=== PATIENT | female | born 1965 | race Caucasian/White ===

== ENCOUNTER 2017-09-09 09:24 | Observation (INO) | payer OTHER, SELFPAY ==
[2017-09-09] VITALS (13 sets, daily range): BP systolic 109–142; BP diastolic 61–78; PULSE 74–95; RESP 16–20; TEMP 36.7–36.9; O2SAT 95–97; BMI 27.9; BMI 27.6; BMI 27.7
--- NOTE | 2017-09-09 09:33 | RAD_ITS ---
STUDY: X-RAY CHEST REASON FOR EXAM: Female, 52 years old. Chest pain. TECHNIQUE: Single portable upright frontal chest. COMPARISON: March 26, 2011. FINDINGS: The lungs are clear and expanded. There is no evident pleural effusion or pneumothorax. Normal size heart. Normal mediastinum and montez. Normal visualized pulmonary arteries. There is atherosclerotic calcification of the aortic arch with tortuosity. Normal visualized thoracic spine. Normal visualized ribs, clavicles, and shoulders. There is no demonstrated abnormality of the visualized soft tissue structures of the upper abdomen. RAD/Chest 1 View (Portable) IMPRESSION: No plain film evidence of acute cardiopulmonary disease. Upon further review, calcified chondroid matrix within the proximal shaft of the right humerus appears most compatible with an enchondroma versus sequela of bone infarct. Atherosclerotic peripheral vascular disease. Electronically Signed: Silvestre Canas MD at 10:00 EDT , Service support ,
--- NOTE | 2017-09-09 09:36 | EKG12_ITS ---
Test Reason : CP Blood Pressure : / mmHG Vent. Rate : 083 BPM Atrial Rate : 083 BPM P-R Int : 150 ms QRS Dur : 086 ms QT Int : 366 ms P-R-T Axes : 045 039 066 degrees QTc Int : 430 ms Normal sinus rhythm Nonspecific T wave abnormality Confirmed by KARINA BOOGIE, LEN ([id number]), editor index EARLENE PATEL ([id number]) on 09/12/2017 12:59:19 PM Referred By: AILEEN/VINCENT Confirmed By:LEN COLLINS MD
[2017-09-09 09:50] LABS: Absolute Lymphocyte Count 1.78 X10^3/ul (0.83-4.51); Absolute Neutrophil Count 4.6 X10^3/uL (2.0-7.7); Basophil# 0.03 X10^3/uL; Basophil% 0.4 % (0-1); Eosinophil# 0.12 X10^3/uL; Eosinophils% 1.7 % (0-5); Hematocrit 40.5 % (37-47); Hemoglobin 13.3 g/dl (12.0-15.0); Lymphocyte # 1.78 X10^3/ul (4.0); Lymphocyte % 25.5 % (19-41); Mean Corp Hgb Conc 32.8 g/gl (32-36); Mean Corpuscular Hgb 31.4 pg (27.0-32.0); Mean Corpuscular Volume 95.7 fL (81-99); Mean Platelet Vol. 10.2 fl (6.2-12.0); Monocyte# 0.45 X10^3/uL; Monocyte% 6.5 % (0-10); Neutrophil # 4.59 X10^3/uL (2.7-7.7); Neutrophil % 65.9 % (47-70); Platelet Count 211 K/mm3 (150-450); RBC Distribution Width CV 12.8 % (11.6-14.6); RBC Distribution Width SD 43.8 fl (35.1-43.9); Red Blood Count 4.23 M/mm3 (4.2-5.4)
[2017-09-09 09:52] LABS: POSITIVE COUNT NO; POSITIVE DIFFERENTIAL NO; POSITIVE MORPHOLOGY NO
--- NOTE | 2017-09-09 09:59 | ED.VISSUMM ---
- ER Visit Summary Date of Service: 09/09/17 Chief Complaint: Chest pain History of Present Illness: The patient is a 52 F dense with chest pain. She had intermittent episodes this past weekend which were less than a minute duration and described as sharp left side of the chest. This morning when she awoke she complained of bilateral chest tightness with radiation to left shoulder and shortness of breath. She has no history of PE or DVT or any risk factors. She denies any leg pain, swelling discoloration. Activity does worsen the pain. She is a former smoker. She quit 4 years ago. She started smoking at the age of 19. She also has history of hypertension hypercholesterolemia. There is no family history of coronary disease at a young age. There is no history of food intolerance or biliary disease. She denies heartburn, indigestion, hematemesis, melena hematochezia. Please read written note for complete detail Physical Examination: Patient is a pleasant middle-aged woman. HEENT exam is unremarkable. Heart is regular without murmur, gallop or rub. S1 and S2 are normal. Lungs are clear to auscultation with good movement of air bilaterally. There is no reproducible chest pain. Abdomen is soft and nontender. There is no guarding or peritoneal findings. There is no palpable pulsatile mass. There is no abdominal bruit. Gutierres sign is negative. Negative Rovsing sign. There is no evidence of inguinal or umbilical hernia. There is no asymmetry, swelling, discoloration, leg vein distention, palpable cords or tenderness along the distribution of the deep venous system. Neuro exam is nonfocal. Test Results: EKG that was obtained per nurse protocol reveals a sinus rhythm rate of 83 and is normal. No view portable chest x-ray reveals normal cardiac silhouette and mediastinum. There is no abnormality lung parenchyma. There is no abnormality of the muscle skeletal structures. CBC is normal. BMP is remarkable for slight elevation glucose of 124. Troponin is less than 0.02 with 3 hours of pain. Emergency Department Course and Treatment: Chest tightness is concerning for cardiac disease. This may also represent GI etiology. To evaluate her chest pain CBC, BMP, troponin, EKG and chest x-ray was obtained. She did receive 4 baby aspirin and was treated with nitro since she is describing tightness in her chest that is worse with activity. The discomfort is not worse with movement of extremities or torso or breathing. Treatment Plan: Patient does report improvement after nitroglycerin. The pain is improved markedly. Disposition: 23 observation PCU for serial cardiac enzymes and provocative testing Impression: Chest tightness History of hypertension History of hypercholesterolemia Elevated blood sugar in nondiabetic This note was generated with [employer] dictation software. It may contain incorrect words, spelling, and punctuation that were not noted in review of the chart prior to signing ED Disposition - Plan for ED Patient: Chief Complaint: Chest Pain Referrals: Leah Callejas DO [Primary Care Provider] -
[2017-09-09] MEDS: Aspirin 81 MG TAB.CHEW 324 MG PO (10:01)
[2017-09-09 10:07] LABS: Anion Gap 6 (5-15); BUN 14 mg/dL (7-18); BUN/Creat Ratio 16.6 RATIO (10-20); Calcium,Total 8.9 mg/dL (8.5-10.1); Chloride 105 mmol/L (98-107); Creatinine, Serum 0.84 mg/dL (0.55-1.02); EST Glomerular Filtration Rate 75 mL/min (>60); Est Glom Filt Rate - Afr Amer 91 mL/min (>60); Estimated Creatinine Clearance 66.88 ml/min; Glucose 124 mg/dL (74-106); Potassium 3.6 mmol/L (3.5-5.1); Sodium Level 138 mmol/L (136-145)
--- NOTE | 2017-09-09 11:15 | PCM.HP.STD ---
Problem List (1) Chest pain Status: Acute (2) Essential (primary) hypertension Status: Chronic (3) Environmental allergies Status: Chronic History of Present Illness Date of Admission: 09/09/17 Chief Complaint: Chest pain The patient is a 52 year old F with past medical history significant for essential hypertension as well as allergic rhinitis who presented with chest pain. Patient symptoms started 3 days prior to coming in pain was located in the retrosternal region described as intermittent in nature. On the morning of her admission she came to work pain became more intense this time squeezing radiating to both shoulders and down her left arm. Patient did not relieve the pain to any activity. She did not also noticed any changes with changes in posture. Presented to the emergency department initial set of cardiac enzymes and EKG came back unremarkable in view of her presentation decision was made to admit patient for subsequent evaluation in the hospital. Past Medical History Past Medical History (Chronic Problems): Chronic Problems (Last Updated 08/25/17 @ 11:34 by Dafne Anne) Essential (primary) hypertension (Chronic) Environmental allergies (Chronic) Allergies Sulfa (Sulfonamide Antibiotics) Allergy (Verified 08/25/17 11:30) Unknown Home Medications: Ambulatory Orders Medication Instructions Recorded Cetirizine HCl [Zyrtec] 10 mg PO DAILY 06/25/16 citalopram 10 mg tablet 10 mg PO QHS 08/25/17 cyclobenzaprine 5 mg tablet 5 mg PO Q8H PRN PRN 08/25/17 DiphenhydrAMINE [Benadryl] 50 mg PO QHS PRN PRN 09/09/17 Lisinopril [Zestril] 20 mg PO DAILY 09/09/17 Tumaric 1 tab PO DAILY 09/09/17 traMADol [Ultram (G)] 50 mg PO Q6H PRN PRN 09/09/17 Smoking Status: Former smoker - *Family History Paternal History Items: Heart Disease - of massive heart attack at age 71 Review of Systems Constitutional: Denies: Anorexia, Chills, Fever, Night Sweats, Weight Change HEENT: Denies: Head Aches, Sinus Congestion, Sinus Drainage Cardiovascular: Reports: Chest Pain. Denies: Orthopnea, Palpitations, Paroxysmal Noc. Dyspnea Respiratory: Denies: Cough, Shortness of breath at rest, Shortness of breath upon exertion, Sputum production Gastrointestinal: Denies: Abdominal Pain, Hematemesis, Hematochezia, Nausea, Melena, Vomiting Genitourinary: Denies: Dysuria, Frequency, Hematuria, Urgency Musculoskeletal: Denies: Joint Pain, Joint Tenderness Skin: Denies: Rash Neurological: Denies: Focal weakness, Numbness, Tingling Psychiatric: Denies: Homicidal Ideations, Suicidal Ideations Hematologic/ Lymphatic: Denies: Easy Bruising, Easy Bleeding VTE Information - Inpt Only VTE Present on Admission: No VTE Mechan Device Prophylaxis: Knee High DERRICK Hose VTE Pharm Prophylaxis ordered?: Yes Patient Problems: Active and Suspected Problems (Last Updated 08/25/17 @ 11:34 by Dafne Anne) Chest pain (Acute) Objective: GENERAL: cooperative HEENT: Clear conjunctiva, NECK; supple, normal thyroid, CHEST: Clear to auscultation bilaterally, HEART: Regular S1 S2, no audible murmurs ABDOMEN: soft, non-tender, normoactive bowel sounds, RECTAL: deferred EXTREMITIES: No edema, no clubbing, no cyanosis. 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 SKIN: No lesions no erythema, - Physical Exam Vital Signs Temp Pulse Resp BP Pulse Ox 98.1 F 81 20 H 121/68 H 97 09/09/17 09:25 09/09/17 10:41 09/09/17 10:41 09/09/17 10:41 09/09/17 10:41 Oxygen Delivery Method Room Air Weight: 73.1 kg Body Mass Index (BMI) 27.6 Laboratory Tests Past 24 Hrs 09/09/17 09/09/17 09:32 09:32 WBC 7.0 RBC 4.23 Hgb 13.3 Hct 40.5 MCV 95.7 MCH 31.4 MCHC 32.8 RDW 12.8 RDW Differential 43.8 Plt Count 211 MPV 10.2 Immature Gran % (Auto) 0.000 Neut % (Auto) 65.9 Lymph % (Auto) 25.5 [place] % (Auto) 6.5 Eos % (Auto) 1.7 Baso % (Auto) 0.4 Absolute Neuts (auto) 4.6 Absolute Lymphs (auto) 1.78 Total Counted Not Reportable Sodium 138 Potassium 3.6 Chloride 105 Carbon Dioxide 27.0 Anion Gap 6 BUN 14 Creatinine 0.84 Estim Creat Clear Calc 66.88 Est GFR (MDRD) Af Amer 91 Est GFR (MDRD) Non-Af 75 BUN/Creatinine Ratio 16.6 Glucose 124 H Calcium 8.9 Troponin I < 0.02 Assessment/Plan Active and Suspected Problems (Last Updated 08/25/17 @ 11:34 by Dafne Anne) Chest pain (Acute) Patient is a 52-year-old lady with past medical history sent on 4 previous tobacco use, essential hypertension presented with chest pain 1. Chest pain: Patient has been admitted to monitored bed ordered serial cardiac enzymes to rule out RI. Patient undergo a nuclear stress test if RI is ruled out in a.m. 2. Hypertension-blood pressure controlled, home medications continued with dose adjustment as needed 3. Seasonal allergies 4. Use of SSRI to treat postmenopausal symptoms 5. DVT prophylaxis SC Lovenox Code Visit OBSV E&M: 86058 Initial observation care L3
--- NOTE | 2017-09-09 11:38 | ECHOD_ITS ---
Reason For Study: CHEST PAIN Procedure This was a 2D Doppler, Color Flow transthoracic echocardiogram. The exam was of adequate technical quality. Exam performed in department. Left Ventricle Normal LV size. Sigmoid septum. Left ventricular systolic function is normal. The estimated ejection fraction is 65 %. Transmitral doppler flow suggestive of impaired relaxation of left ventricle. No regional wall motion abnormalities noted. Right Ventricle Normal RV size. Normal systolic function. Atria Normal left atrium. Normal right atrium. Agitated saline contrast study considered faintly positive for a right to left interatrial shunt c/w a small PFO vs. ASD. Mitral Valve There is no mitral annular calcification. Normal mitral valve. Trivial mitral valve insufficiency. Tricuspid Valve Normal tricuspid valve. Mild tricuspid valve insufficiency. Right ventricular systolic pressure estimated to be 25 mmHg. Aortic Valve Trisinus/trileaflet aortic valve. Normal aortic valve. Pulmonic Valve The pulmonic valve is not well visualized. Great Vessels Normal sized aortic root. Pericardium/Pleural No pericardial effusion. Medication Performed a rapid injection of agitated mix of 9 cc saline and 1cc air to assess for atrial septal defect. MMode/2D Measurements & Calculations LVIDd: 4.1 cm IVSd: 0.73 cm Ao root diam: 3.1 cm LVIDs: 2.7 cm LVPWd: 0.91 cm RVDd: 3.0 cm FS: 34.8 % LAV(MOD-bp): 29.1 ml EDV(MOD-sp4): 73.8 ml EDV(MOD-sp2): 95.0 ml LAV(MOD-bp) Indexed: 16.3 ml/m2 ESV(MOD-sp4): 30.6 ml EF(MOD-sp2): 68.8 % LAV(MOD-sp2): 33.8 ml EF(MOD-sp4): 58.6 % LAV(MOD-sp4): 22.5 ml SV(MOD-sp4): 43.3 ml SV(MOD-sp2): 65.4 ml LA A4 area: 11.1 cm2 RA A4 area: 8.8 cm2 Doppler Measurements & Calculations MV E max boby: 58.6 cm/sec Lat Peak E' Boby: 9.9 cm/sec Med Peak E' Boby: 9.3 cm/sec MV A max boby: 72.6 cm/sec E/E' lat: 5.9 E/E' med: 6.3 MV E/A: 0.81 Ao V2 max: 163.5 cm/sec LV V1 max: 119.8 cm/sec TR max boby: 233.2 cm/sec Ao max P.7 mmHg LV V1 max P.7 mmHg TR max P.8 mmHg Interpretation Summary Left ventricular systolic function is normal. The estimated ejection fraction is 65 %. Sigmoid septum. Trivial mitral valve insufficiency. Mild tricuspid valve insufficiency. Right ventricular systolic pressure estimated to be 25 mmHg. Transmitral doppler flow suggestive of impaired relaxation of left ventricle Agitated saline contrast study considered faintly positive for a right to left interatrial shunt c/w a small PFO vs. ASD. Ordering Physician: Nabeel Dai Referring Physician: Leah Callejas Performed By: Kimberley Brannon, JONAS, RVT
[2017-09-09 12:00] LABS: Magnesium 1.8 mg/dL (1.6-2.6)
[2017-09-09] MEDS: Citalopram 10 MG Tablet PO (21:25)
[2017-09-09] MEDS: Zolpidem Tartrate 5 MG Tablet PO (21:26)
[2017-09-10 00:49] LABS: Prothrombin Time (Protime)PT. 12.8 SECONDS (11.7-14.9)
[2017-09-10 03:20] VITALS: BP 119/67; PULSE 72; RESP 16; TEMP 36.6; O2SAT 97
[2017-09-10 03:29] VITALS: PULSE 62
[2017-09-10 05:41] LABS: Absolute Neutrophil Count 3.2 X10^3/uL (2.0-7.7); Basophil# 0.03 X10^3/uL; Basophil% 0.5 % (0-1); Eosinophil# 0.16 X10^3/uL; Eosinophils% 2.7 % (0-5); Lymphocyte % 31.8 % (19-41); Mean Corp Hgb Conc 33.3 g/gl (32-36); Mean Corpuscular Hgb 32.1 pg (27.0-32.0); Mean Corpuscular Volume 96.3 fL (81-99); Mean Platelet Vol. 10.2 fl (6.2-12.0); Monocyte# 0.64 X10^3/uL; Monocyte% 10.7 % (0-10); Neutrophil # 3.23 X10^3/uL (2.7-7.7); Neutrophil % 54.1 % (47-70); Platelet Count 209 K/mm3 (150-450); RBC Distribution Width CV 12.7 % (11.6-14.6); RBC Distribution Width SD 43.8 fl (35.1-43.9); Red Blood Count 4.05 M/mm3 (4.2-5.4)
[2017-09-10 05:44] LABS: POSITIVE COUNT NO; POSITIVE DIFFERENTIAL NO; POSITIVE MORPHOLOGY NO
[2017-09-10 05:55] LABS: Anion Gap 7 (5-15); BUN 12 mg/dL (7-18); BUN/Creat Ratio 17.5 RATIO (10-20); Calcium,Total 8.2 mg/dL (8.5-10.1); Chloride 110 mmol/L (98-107); Creatinine, Serum 0.68 mg/dL (0.55-1.02); EST Glomerular Filtration Rate 95 mL/min (>60); Est Glom Filt Rate - Afr Amer 115 mL/min (>60); Estimated Creatinine Clearance 82.62 ml/min; Glucose 92 mg/dL (74-106); Partial Thromboplast Time 25.8 Seconds (24.1-36.2); Sodium Level 144 mmol/L (136-145)
--- NOTE | 2017-09-10 05:55 | EKG12_ITS ---
Test Reason : AM EKG Blood Pressure : / mmHG Vent. Rate : 061 BPM Atrial Rate : 061 BPM P-R Int : 162 ms QRS Dur : 086 ms QT Int : 396 ms P-R-T Axes : 052 038 069 degrees QTc Int : 398 ms Normal sinus rhythm Normal ECG Confirmed by KARINA BOOGIE, LEN ([id number]), legal editor EARLENE PATEL ([id number]) on 09/12/2017 1:23:19 PM Referred By: Confirmed By:LEN COLLINS MD
[2017-09-10] MEDS: Lisinopril 20 MG Tablet PO (06:15)
[2017-09-10 06:16] VITALS: BP 156/76; PULSE 75; RESP 20; TEMP 36.4; O2SAT 98
[2017-09-10 09:29] VITALS: PULSE 82
[2017-09-10] MEDS: Loratadine 10 MG Tablet PO (09:30)
[2017-09-10 09:37] VITALS: BP 121/81; PULSE 75; RESP 16; TEMP 36.5; O2SAT 100
--- NOTE | 2017-09-10 10:18 | STRESSREP ---
Stress Test Report Date: 09/10/2017 Procedure: Exercise tolerance test/imaging study Indications: Chest pain Consent: Per the patient Procedure: The patient exercised on a Brandt protocol for 7 minutes completing Stage 2 and 1 minute of Stage III achieving a peak heart rate of 169 bpm (101 % predicted maximal heart rate) with a peak blood pressure 178/62 mmHg and a peak MET capacity of 8 METs. The baseline ECG demonstrated normal sinus rhythm. The peak exercise ECG demonstrated somatic/motion artifact with no obvious ECG changes. There was a rare PVC during exercise and recovery. The functional capacity was considered good. There was chest tightness at peak exercise with spontaneous resolution during recovery. The examination was discontinued secondary to dyspnea and leg discomfort. Impression: 1. Technically adequate (percent predicted maximal heart rate greater than 85%) exercise tolerance test 2. Peak exercise ECG with somatic/motion artifact with no obvious ECG changes 3. There was a rare PVC during exercise and recovery. 4. Nuclear images pending Myocardial perfusion imaging study: Technique: The patient was injected with 11.8 mCi of technetium 99m Cardiolite and subsequently rest SPECT Cardiolite nuclear imaging was obtained in the horizontal long, vertical long, and short axis views. The patient exercised on a Brandt protocol for 7 minutes completing Stage 2 and 1 minute of Stage III achieving a peak heart rate of 169 bpm (101 % predicted maximal heart rate) with a peak blood pressure 178/62 mmHg and a peak MET capacity of 8 METs. The patient was injected with 33.1 mCi of technetium 99m Cardiolite and subsequently stress SPECT Cardiolite nuclear imaging was obtained in the horizontal long, vertical long, and short axis views. A gated Cardiolite study at peak stress was obtained. Interpretation: Rest and stress SPECT Cardiolite nuclear imaging status post realignment, normalization, and attenuation correction, demonstrates the appearance of relative uniform tracer uptake and myocardial perfusion appearing within normal limits. There is end systolic thickening and brightening. The gated Cardiolite study demonstrates myocardial thickening and inward wall motion. The reported LVEF is 78 %. Impression: 1. Rest and stress SPECT Cardiolite nuclear imaging demonstrate relative uniform tracer uptake and myocardial perfusion appearing within normal limits. 2. The gated Cardiolite study reports an LVEF of 78 %. This note was generated with [employer] software. It may contain incorrect words, spelling, and punctuation that were not noted in checking the note before signing.
--- NOTE | 2017-09-10 10:21 | NURSING ---
this RN assuming care of pt at this time
--- NOTE | 2017-09-10 10:22 | STRESSREP_ITS ---
Stress Test Report Date: 09/10/2017 Procedure: Exercise tolerance test/imaging study Indications: Chest pain Consent: Per the patient Procedure: The patient exercised on a Brandt protocol for 7 minutes completing Stage 2 and 1 minute of Stage III achieving a peak heart rate of 169 bpm (101 % predicted maximal heart rate) with a peak blood pressure 178/62 mmHg and a peak MET capacity of 8 METs. The baseline ECG demonstrated normal sinus rhythm. The peak exercise ECG demonstrated somatic/motion artifact with no obvious ECG changes. There was a rare PVC during exercise and recovery. The functional capacity was considered good. There was chest tightness at peak exercise with spontaneous resolution during recovery. The examination was discontinued secondary to dyspnea and leg discomfort. Impression: 1. Technically adequate (percent predicted maximal heart rate greater than 85% ) exercise tolerance test 2. Peak exercise ECG with somatic/motion artifact with no obvious ECG changes 3. There was a rare PVC during exercise and recovery. 4. Nuclear images pending Myocardial perfusion imaging study: Technique: The patient was injected with 11.8 mCi of technetium 99m Cardiolite and subsequently rest SPECT Cardiolite nuclear imaging was obtained in the horizontal long, vertical long, and short axis views. The patient exercised on a Brandt protocol for 7 minutes completing Stage 2 and 1 minute of Stage III achieving a peak heart rate of 169 bpm (101 % predicted maximal heart rate) with a peak blood pressure 178/62 mmHg and a peak MET capacity of 8 METs. The patient was injected with 33.1 mCi of technetium 99m Cardiolite and subsequently stress SPECT Cardiolite nuclear imaging was obtained in the horizontal long, vertical long, and short axis views. A gated Cardiolite study at peak stress was obtained. Interpretation: Rest and stress SPECT Cardiolite nuclear imaging status post realignment, normalization, and attenuation correction, demonstrates the appearance of relative uniform tracer uptake and myocardial perfusion appearing within normal limits. There is end systolic thickening and brightening. The gated Cardiolite study demonstrates myocardial thickening and inward wall motion. The reported LVEF is 78 %. Impression: 1. Rest and stress SPECT Cardiolite nuclear imaging demonstrate relative uniform tracer uptake and myocardial perfusion appearing within normal limits. 2. The gated Cardiolite study reports an LVEF of 78 %. This note was generated with [employer] software. It may contain incorrect words, spelling, and punctuation that were not noted in checking the note before signing.
--- NOTE | 2017-09-10 11:29 | PCM.DC ---
- Discharge Diagnoses Current Active Problems: Current Active and Chronic Problems (Last Updated 08/25/17 @ 11:34 by Dafne Anne) Chest pain (Acute) Essential (primary) hypertension (Chronic) Environmental allergies (Chronic) You will use the following diet at home:: No restrictions Instructions: ED Chest Pain NonCardiac Allergies/Adverse Reactions: Allergies Sulfa (Sulfonamide Antibiotics) Allergy (Verified 08/25/17 11:30) Unknown Medications to take at Discharge Cetirizine HCl [Zyrtec] 10 mg PO DAILY 06/25/16 citalopram 10 mg tablet 10 mg PO QHS 08/25/17 cyclobenzaprine 5 mg tablet 5 mg PO Q8H PRN PRN 08/25/17 DiphenhydrAMINE [Benadryl] 50 mg PO QHS PRN PRN 09/09/17 Lisinopril [Zestril] 20 mg PO DAILY 09/09/17 Tumaric 1 tab PO DAILY 09/09/17 traMADol [Ultram] 50 mg PO Q6H PRN PRN 09/09/17 Primary Care Physician: Leah Callejas DO [Primary Care Provider] - Please follow up with your Primary Care Physician in: IN 3-5 DAYS Proposed Discharge Date: 09/10/17
--- NOTE | 2017-09-10 11:32 | PCM.DC.SUM ---
Discharge Date and Diagnosis - Problem List Patient Problems: Active and Suspected Problems (Last Updated 08/25/17 @ 11:34 by Dafne Anne) Chest pain (Acute) Date of Admission: 09/09/17 Date of Discharge: 09/10/17 - Primary Discharge Diagnosis Active and Suspected Problems (Last Updated 08/25/17 @ 11:34 by Dafne Anne) Chest pain (Acute) - Secondary Discharge Diagnosis Chronic Problems (Last Updated 08/25/17 @ 11:34 by Dafne Anne) Essential (primary) hypertension (Chronic) Environmental allergies (Chronic) Hospital Course and Treatment Imaging Results: 09/10/17 05:55 Nuclear Stress Test - Treadmil [NM] AM (NON MEDS) Summary of Care Provided: Patient is a 52-year-old lady with past medical history sent on 4 previous tobacco use, essential hypertension presented with chest pain 1. Chest pain: Is admitted to regular nursing floor did rule out HI with serial cardiac enzymes subsequently underwent a nuclear stress test which was negative for stress-induced ischemia. Patient was discharged home instructed to follow-up with PCP for further 2. Hypertension-blood pressure controlled, home medications continued with dose adjustment as needed 3. Seasonal allergies 4. Use of SSRI to treat postmenopausal symptoms 5. DVT prophylaxis SC Lovenox Discharge Diet: No Restrictions Discharge Activity: Return to Normal Activity Home Medications: Medications to take at Discharge Cetirizine HCl [Zyrtec] 10 mg PO DAILY 06/25/16 citalopram 10 mg tablet 10 mg PO QHS 08/25/17 cyclobenzaprine 5 mg tablet 5 mg PO Q8H PRN PRN 08/25/17 DiphenhydrAMINE [Benadryl] 50 mg PO QHS PRN PRN 09/09/17 Lisinopril [Zestril] 20 mg PO DAILY 09/09/17 Tumaric 1 tab PO DAILY 09/09/17 traMADol [Ultram] 50 mg PO Q6H PRN PRN 09/09/17 Primary Care Physician: Leah Callejas DO [Primary Care Provider] - Please follow up with your Primary Care Physician in: IN 3-5 DAYS Patient Instructions: ED Chest Pain NonCardiac Disposition: Home Minutes spent on discharge:: 25 Patient Condition:: Stable Medical Necessity - Tobacco Use Smoking Status: Former smoker Meaningful Use Info Meaningful Use Diagnoses (Choose all that apply): None applicable Code Visit OBSV E&M: 24444 Observation care discharge
[2017-09-10 14:09] VITALS: BP 124/76; PULSE 78; RESP 14; TEMP 36.6; O2SAT 100
== END 2017-09-10 11:30 | disposition home or self-care (01) ==
LOC: ED 10:15 → PCU 10:44
PROVIDERS: Admitting Provider Internal Medicine; Emergency Provider Emergency Medicine; Family Provider Family Medicine; PCP Family Medicine; Visit Provider Internal Medicine
DX: R07.89 Other chest pain (principal); R06.02 Shortness of breath; Z87.891 Personal history of nicotine dependence; I10 Essential (primary) hypertension; E78.00 Pure hypercholesterolemia, unspecified; R73.9 Hyperglycemia, unspecified; Z79.899 Other long term (current) drug therapy; N95.9 Unspecified menopausal and perimenopausal disorder
CPT/HCPCS: 36415; 71045; 78452; 80048; 83735; 84484; 85025; 85610; 85730; 93005; 93017; 93306; 99218; 99285; A9500; A4216; G0378

== ENCOUNTER → 2017-10-04 13:30 | Outpatient (CLI) | payer OTHER, SELFPAY | PROVIDERS: Family Provider Family Medicine; PCP Family Medicine; Visit Provider Family Medicine | DX: R19.7 Diarrhea, unspecified (principal) | CPT/HCPCS: 83630; 87177; 87209; 87493; 87506 ==

== ENCOUNTER → 2017-12-26 13:57 | Outpatient (CLI) | payer OTHER, SELFPAY ==
--- NOTE | 2017-12-26 14:11 | RAD_ITS ---
STUDY: X-RAY - LEFT KNEE REASON FOR EXAM: Female, 52 years old. Pain. Recent fall. TECHNIQUE: 4 view(s) of the knee. COMPARISON: None. FINDINGS: Normal visualized distal femur. Normal visualized proximal tibia and fibula. Normal proximal tibiofibular articulation. There is mild degenerative arthrosis of the medial femorotibial compartment. There is mild degenerative arthrosis of the lateral femorotibial compartment. There is chondrocalcinosis. There is partial joint replacement of the patellofemoral articulation. There is a soft tissue prominence in the suprapatellar region suggesting a small volume joint effusion. The soft tissue structures are unremarkable. RAD/Knee 4 or More Views IMPRESSION: Degenerative arthrosis. Electronically Signed: Nadir Monte MD at 22:05 EDT , Service support ,
== END ==
PROVIDERS: Family Provider Family Medicine; PCP Family Medicine; Visit Provider Physician Assistant
DX: M17.12 Unilateral primary osteoarthritis, left knee (principal)
CPT/HCPCS: 73564

== ENCOUNTER → 2018-02-10 15:53 | Outpatient (CLI) | payer OTHER, SELFPAY ==
--- NOTE | 2018-02-10 16:00 | RAD_ITS ---
STUDY: X-RAY - LEFT KNEE REASON FOR EXAM: Female, 52 years old. Pain TECHNIQUE: Two view(s) of the knee were obtained. COMPARISON: December 26, 2017 FINDINGS: There are small osteophytes on the distal femur. There are small osteophytes on the tibial plateau. There is mild narrowing of the medial femorotibial compartment. There is mild narrowing of the lateral femorotibial compartment. There is chondrocalcinosis in both femorotibial compartments. There are surgical changes in the patella. There is minimal fullness above the patella. The soft tissue structures are unremarkable. RAD/Knee 1 or 2 Views IMPRESSION: There are stable degenerative changes in the left knee. There is a small joint effusion. Electronically Signed: Demetria Byrnes MD at 17:54 EDT Tel Direct: [phone], Service support ,
== END ==
PROVIDERS: Family Provider Family Medicine; PCP Family Medicine; Visit Provider Physician Assistant
DX: M17.12 Unilateral primary osteoarthritis, left knee (principal)
CPT/HCPCS: 73560

== ENCOUNTER → 2018-03-12 10:21 | Outpatient (CLI) | payer OTHER, SELFPAY ==
--- NOTE | 2018-03-12 10:22 | BI_ITS ---
MAMMOGRAPHY - BILATERAL SCREENING REASON FOR EXAM: Female, 52 years old. Routine annual screening examination. PERTINENT HISTORY: Grandmother with breast cancer. TECHNIQUE: Digital bilateral breast megan (3D mammographic acquisition) in the CC and MLO projections. 2-D mediolateral oblique (MLO) and craniocaudad (CC) views of both breasts were obtained. CAD: Full Field Digital Mammography with Computer Added Detection was performed. COMPARISON: Comparison is made with prior study dated March 26, 2016 and February 08, 2015. FINDINGS: Breast Composition: There are scattered areas of fibroglandular density. There are no dominant masses or suspicious calcifications. I suspect a 4.8 mm x 6.6 mm well-defined nodule in the superior lateral retroareolar region of the left breast. Correlation with ultrasound is recommended. No other significant abnormalities are identified. BI/SCREENING MAMM (CAD), BILAT IMPRESSION: I suspect a 4.8 mm x 6.6 mm well-defined nodule in the superior lateral retroareolar region of the left breast as described. Correlation with ultrasound is recommended. ASSESSMENT CATEGORY: BIRADS Category 0: Incomplete. Need additional imaging evaluation. A letter regarding these results will be sent to the patient by the facility within 30 days. Approximately 10% of breast cancers are not detected by mammography. A normal mammogram should not delay biopsy of a clinically suspicious abnormality. [id number] Electronically Signed: Yuri Rodrigues MD at 11:43 EDT Tel [phone], Service support ,
== END ==
PROVIDERS: Family Provider Family Medicine; PCP Family Medicine; Referring Provider Family Medicine; Visit Provider Family Medicine
DX: Z12.31 Encounter for screening mammogram for malignant neoplasm of breast (principal)
CPT/HCPCS: 77063; 77067

== ENCOUNTER → 2018-03-14 11:00 | Outpatient (CLI) | payer OTHER, SELFPAY ==
--- NOTE | 2018-03-14 11:02 | US_ITS ---
STUDY: ULTRASOUND BREAST - LEFT REASON FOR EXAM: Female, 52 years old. Abnormal screening mammogram. TECHNIQUE: Axial and longitudinal images of the LEFT breast were performed with a high resolution ultrasound transducer. COMPARISON: Comparison is made with prior mammogram dated March 12, 2018. FINDINGS: LEFT Breast: There is a 5 mm x 9 mm x 5 mm hypoechoic nodule with a small cystic changes within it in the lateral retroareolar region of the left breast. This corresponds to the mammographic findings. A biopsy is recommended for further evaluation. US/Breast Limited Unilateral IMPRESSION: 5 mm x 9 mm x 5 mm complex nodule seen in the retroareolar region of the left breast as described. A biopsy is recommended for further evaluation. ASSESSMENT CATEGORY: BIRADS Category 4: Suspicious - Biopsy Should Be Considered. A letter regarding these results will be sent to the patient by the facility within 30 days. Electronically Signed: Yuri Rodrigues MD at 12:39 EDT Tel [phone], Service support ,
== END ==
PROVIDERS: Family Provider Family Medicine; PCP Family Medicine; Referring Provider Family Medicine; Visit Provider Family Medicine
DX: R92.8 Other abnormal and inconclusive findings on diagnostic imaging of breast (principal)
CPT/HCPCS: 76642

== ENCOUNTER 2018-03-21 09:00 | Outpatient (RCR) | payer OTHER, SELFPAY ==
--- NOTE | 2017-08-05 16:11 | MASS.EVAL_ITS ---
Massage Therapy Evaluation: Initial Evaluation Date: 08/05/2017 SUBJECTIVE: Susanne is a 52 year old female who was referred to the [facility] facility for a massotherapy evaluation by Dr. Leah Callejas with the diagnosis of sciatica and headaches. Susanne presents today with the symptoms of right low back pain and right sciatic pain. She also complains of tension and pain in her neck shoulders and middle back. She reports having a medical history of sciatica that shifts from right side to left intermittently and tension headaches. She reports having minimal limitations during her daily activities currently. OBJECTIVE: Upon observation Susanne has poor posture with her head forward and shoulders forward from the neutral position in sitting and standing. After examination and palpation I found Susanne to have very high muscle tension with tenderness and myofascial restrictions in her sub occipitals, trapezius, rhomboids, scalenes and thoracic paraspinals. Her hips and lumbar region were also tight with tender points on the right side greater than the left side currently. The first treatment consisted of a one hour massage to her full body with myofascial release, muscle stripping, trigger point compression techniques, and cervical manual traction. ASSESSMENT: I feel that Susanne is a good candidate for massotherapy at this time. She had a favorable response to the first treatment with reduction in her muscle aches, pain and tension. She also had improvement in her lumbar and hip flexibility. PLAN: The plan of care was reviewed with the patient. The patient is to be seen on as needed basis for a total of ten sessions with the recommendation of once every four weeks for a one hour treatment.
--- NOTE | 2018-05-10 15:06 | MASS.DISCH ---
Massage Therapy Discharge Summary: Discharge Date: 05/10/2018 Susanne was seen for a massotherapy evaluation on 08/05/2017 with the diagnosis of headaches and sciatica. She was treated with five sessions of massage therapy consisting of deep pressure soft tissue techniques, myofascial release and trigger point compression to her cervical, thoracic, lower back, upper extremities and hips. Susanne responded well to the therapy by reporting decreased tension and pain throughout her head, neck, shoulders, lower back and hips. Her goals for therapy were met throughout the treatment sessions. At this time this patient is being discharged from our care at [facility] facility.
== END 2018-03-21 19:00 | disposition home or self-care (01) ==
LOC: MASS 09:00
PROVIDERS: Family Provider Family Medicine; PCP Family Medicine; Visit Provider Family Medicine
DX: M54.30 Sciatica, unspecified side (principal)
CPT/HCPCS: 97124

== ENCOUNTER → 2018-03-26 09:00 | Outpatient (CLI) | payer OTHER, SELFPAY ==
--- NOTE | 2018-03-26 09:00 | BRBX_PTH ---
PATIENT: JIMMIE ALY LOC: [facility] U#:[id number] AGE/SX: 59/F ROOM: RE03/26/[address]: Dr. Luke Pacheco MD : 1965 BED: DIS: SPEC #: [id number] RECD: 03/26/18 10:27 STATUS: BEVERLY FRED #: [id number] PAGE: 03/26/18 09:[address]: Luke Pacheco DEPT: SURGICAL PATHOLOGY RECD BY: Rocco Cho ENTERED: 03/26/18 12:04 SP TYPE: BREAST BX OTHR DR: Dr. Leah Callejas DO Tissues: Left breast, NOS Procedures: Surgery Specimen Level IV HEADER OPERATION: Ultrasound-guided needle core biopsy left breast PRE-OP DIAGNOSIS: Abnormal mammogram R92.8 TISSUE SUBMITTED: Needle core biopsy left breast ISCHEMIC TIME: <30 seconds FIXATION TIME: 10.5 hours MICROSCOPIC DIAGNOSIS Left breast, ultrasound-guided needle core biopsy: Fibrocystic change. No evidence of malignancy. AM:soniya 03/27/18 MICROSCOPIC DESCRIPTION Slides are reviewed. GROSS DESCRIPTION Received in fixative is one container labeled with the patient's name and designated left breast biopsy. The specimen consists of multiple elongated fragments of banks-yellow fibroadipose tissue that in aggregate measure 1.5 x 0.3 x 0.1 cm. The entire specimen is submitted in one cassette. / SJ:soniya 03/26/18 TC:5 CPT: 41427
== END ==
PROVIDERS: Family Provider Family Medicine; PCP Family Medicine; Referring Provider Surgery; Visit Provider Surgery
DX: R92.8 Other abnormal and inconclusive findings on diagnostic imaging of breast (principal)
CPT/HCPCS: 88305

== ENCOUNTER → 2019-01-23 14:49 | Outpatient (CLI) | payer OTHER, SELFPAY ==
[2019-01-15 14:14] VITALS: BMI 29.2
--- NOTE | 2019-01-23 14:55 | RAD_ITS ---
STUDY: X-RAY - LEFT KNEE REASON FOR EXAM: Female, 53 years old. Osteoarthritis. Pain. TECHNIQUE: 4 view(s) of the knee. COMPARISON: 02/10/2018 radiographs. FINDINGS: No visible fracture. No osseous destruction. Status post partial arthroplasty of the patellofemoral compartment. Alignment anatomic. Mild degenerative changes. Chondrocalcinosis of the medial and lateral menisci. Soft tissues unremarkable. Calcific atherosclerosis. RAD/Knee 4 or More Views IMPRESSION: No acute osseous abnormality. Mild degenerative changes with meniscal chondrocalcinosis. Electronically Signed: Cb Mason, at 0:45 EDT Tel , Service support ,
== END ==
PROVIDERS: Family Provider Family Medicine; PCP Family Medicine; Referring Provider Physician Assistant; Visit Provider Physician Assistant
DX: M17.12 Unilateral primary osteoarthritis, left knee (principal)
CPT/HCPCS: 73564

== ENCOUNTER → 2019-05-06 12:38 | Outpatient (CLI) | payer OTHER, SELFPAY ==
[2019-01-15 14:14] VITALS: BMI 29.2
--- NOTE | 2019-05-06 12:42 | BI_ITS ---
MAMMOGRAPHY - BILATERAL SCREENING REASON FOR EXAM: Female, 53 years old. Routine annual screening examination. PERTINENT HISTORY: Grandmother with breast cancer. Prior left ultrasound-guided breast biopsy. TECHNIQUE: Digital bilateral breast jasvir (3D mammographic acquisition) in the CC and MLO projections. 2-D mediolateral oblique (MLO) and craniocaudad (CC) views of both breasts were obtained. CAD: Full Field Digital Mammography with Computer Added Detection was performed. COMPARISON: Comparison is made with prior study dated March 12, 2018 and March 26, 2016. FINDINGS: Breast Composition: There are scattered areas of fibroglandular density. There are no dominant masses or suspicious calcifications. A tissue clip marker is seen in the tiny nodular density in the superior slightly lateral retroareolar region of the left breast. The nodular density has decreased in size. No other significant abnormalities are identified. BI/SCREEN MAMM (CAD) W/JASVIR BILAT IMPRESSION: Stable bilateral screening mammogram. Yearly follow-up mammogram recommended. (A) ASSESSMENT CATEGORY: BIRADS Category 2: Benign. A letter regarding these results will be sent to the patient by the facility within 30 days. Approximately 10% of breast cancers are not detected by mammography. A normal mammogram should not delay biopsy of a clinically suspicious abnormality. [id number] Electronically Signed: Yuri Rodrigues, at 15:04 EST , Service support ,
== END ==
PROVIDERS: Family Provider Family Medicine; PCP Family Medicine; Referring Provider Family Medicine; Visit Provider Family Medicine
DX: Z12.31 Encounter for screening mammogram for malignant neoplasm of breast (principal)
CPT/HCPCS: 77063; 77067

== ENCOUNTER → 2019-06-23 10:10 | Outpatient (CLI) | payer OTHER, SELFPAY ==
[2019-01-15 14:14] VITALS: BMI 29.2
--- NOTE | 2019-06-23 10:15 | RAD_ITS ---
STUDY: X-RAY - RIGHT SHOULDER REASON FOR EXAM: Female, 54 years old. pain, no current injury, pt. states she played softball for many years TECHNIQUE: 4 view(s) of the shoulder. COMPARISON: Chest x-ray dated 2010. FINDINGS: No acute fracture, dislocation or osseous destruction. Mild glenohumeral joint arthrosis. Moderate acromial clavicular joint arthrosis. Rotator cuff calcific peritendinitis. Normal right lung. Right proximal humeral stable chondroid lesion. RAD/Shoulder min 2 Views IMPRESSION: Right shoulder osteoarthritis Rotator cuff calcific peritendinitis Right proximal humeral chondroid lesion (enchondroma) Electronically Signed: Dc Arciniega DO at 15:07 EST Tel , Service support ,
== END ==
PROVIDERS: PCP Family Medicine; Referring Provider Orthopaedic Surgery; Visit Provider Orthopaedic Surgery
DX: M65.811 Other synovitis and tenosynovitis, right shoulder (principal)
CPT/HCPCS: 73030

== ENCOUNTER 2019-07-07 17:04 | Outpatient (RCR) | payer OTHER, SELFPAY ==
[2019-01-15 14:14] VITALS: BMI 29.2
--- NOTE | 2019-07-09 12:38 | MASS.EVAL_ITS ---
Massage Therapy Evaluation: Initial Evaluation Date: 07/07/2019 SUBJECTIVE: Susanne is a 54 year old female who was referred to the [facility] facility for a massotherapy evaluation by Dr. Callejas with the diagnosis of back pain. She presents today with the symptoms of pain, stiffness and tension in the neck, mid back, low back and hips. Susanne reports having a past medical history of sciatic pain and multiple surgeries on bilateral knees. She also is currently having physical therapy for right biceps tendonitis and right carpal tunnel syndrome. She reports having gradual improvement with exercise and stretching. OBJECTIVE: Upon observation Susanne has some posture issues with her head and shoulders forward from the neutral position in sitting and standing. After examination and palpation, I found Susanne to have high muscle tension with tenderness and myofascial restrictions in her sub occipitals, levator scapulae, trapezius, rhomboids, scalenes, and thoracic paraspinals. Her QL?s, lumbar paraspinals, piriformis, glute medius and minimus all were very tight with fascial restrictions, tender points and trigger points. Her right wrist and right bicep was tender with fascial restrictions. The first treatment consisted of a one hour massage to her upper body with myofascial release, muscle stripping, trigger point compression techniques, and cervical manual traction. ASSESSMENT: I feel that Susanne is a good candidate for massotherapy at this time. She had a favorable response to the first treatment with reduction in her muscle aches, pain and tension. She also had improvement in her cervical flexibility and low back flexibility. PLAN: The plan of care was reviewed with the patient. The patient is to be seen on an as needed basis for a total of ten sessions with the recommendation of once every month for a one hour treatment.
--- NOTE | 2020-05-10 19:08 | MASS.DISCH ---
Massage Therapy Discharge Summary: Discharge Date: 05/10/2020 Susanne was seen for a massotherapy evaluation on 07/07/2019 with the diagnosis of back pain. She was treated with one session of massage therapy consisting of deep pressure soft tissue techniques, myofascial release and trigger point compression to her cervical, thoracic, lower back, lower extremities and hips. Susanne responded well to the therapy by reporting decreased tension and pain throughout her neck, shoulders, lower back and hips. Her goals for therapy were met throughout the treatment sessions. At this time this patient is being discharged from our care at [facility] facility.
== END 2019-07-07 19:00 | disposition home or self-care (01) ==
LOC: MASS 17:04
PROVIDERS: PCP Family Medicine; Referring Provider Family Medicine; Visit Provider Family Medicine
DX: M54.9 Dorsalgia, unspecified (principal)
CPT/HCPCS: 97124

== ENCOUNTER 2019-07-31 12:00 | Outpatient (RCR) | payer OTHER, SELFPAY ==
[2019-01-15 14:14] VITALS: BMI 29.2
--- NOTE | 2019-06-29 14:55 | HP.PTEVAL ---
Patient's Visit Information JIMMIE ALY is a 54 year old F referred to Physical Therapy by Andrew Nelson DO with a diagnosis of OTHER SYNOVITIS AND TENOSYNOVITIS RIGHT SHOULDER. Date of Evaluation: 06/29/19 Physical Therapist: Russell Cardoza, PT, Cert MDT, OCS - Visit Plan Frequency: 2x /Week Duration: 4 Weeks Plan: PT INTERVENTIONS RTC/SCAPULAR STRENGTHENING,POSTURAL EX'S,MODALTIES - Subjective Findings: This 54 y/o female presents to physical therapy with right shoulder pain.Patienty has had right shoulder pain 2 years symptoms progressively worse past [address] x-rays OA mod AC.Patient pain AC lateral arm described as ache. Does have parathesia in arm related to CTS wears brace at night. 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 Alleviating factor shower,heat/TENS. Patient pain affects job demands ,housework tasks and ADL'S. Patient pain affects QOL. Patient pain affects sleeping. VOCATION: [employer]. SOCIAL: - Objective POSTURE: mild foward posture rounded shoulders foward. NEURO: parathesia/tingling in arms,reflexes intact. PALPATION: long bicep tendon ,AC. AROM: flexion 150 degrees,abd 150 degress with pain arc and pain OP,ER 90 ,IR S1. MMT: RTC 4/5 ,deltoid 4-/5 anterior /lateral pain - Special Tests R Shoulder Lift Off Test - Subscapular Tear: Negative R Shoulder Drop Sign - IS Test: Positive R Shoulder Empty Can - SS: Positive R Shoulder Neer - Impingement: Positive R Shoulder Cristobal Edward - Impingement: Positive R Shoulder AC Resisted - AC: Positive R Shoulder Shrug Sign - OA/Adhesive Capsulitis: Positive - Goals Goal 1:: Patient to be Independant with HEP. Goal Time Frame: 4-6 Weeks Goal 2:: Patient to improve posture for ADL'S and job demands Goal Time Frame: 4-6 Weeks Goal 3:: Patient decrease shoulder pain by 60% or > to improve function and ADL'S Goal Time Frame: 4-6 Weeks Goal 4:: Patient to increase AROM shoulder symmtrical R=L to improve function and job demnads Goal Time Frame: 4-6 Weeks Goal 5:: Patient increase shoulder quick dash by 5 points or > to improve QOL. Goal Time Frame: 4-6 Weeks - Rehabilitation Potential Physical Therapy Diagnosis: Patient has right shoulder impingement pain in right shoulder with decrease ROM,strength pain affecting OH activities with ADL'S and job demands. Rehabilitation Potential: Good - Anticipated Interventions Patient/Client Instruction: Educate patient on: Condition, Plan of Care For the Purpose of:: To decrease pain, To increase ROM, To improve muscle performance and motor function, To improve ability to perform ADL's, To increase tolerance to activity/condition/position, To improve performance and independence with ADL's, To improve ability of physical actions for home/community/work/leisure, To improve health of tissue, To decrease soft tissue restriction, To increase flexibility/ROM, To reduce risk of recurrence, To improve health and function Therapeutic Exercise to Include: Strength training, Postural training, Flexibilty training, Active ROM Comment: RTC For the Purpose of:: To decrease pain, To increase ROM, To improve muscle performance and motor function, To improve ability to perform ADL's, To increase tolerance to activity/condition/position, To improve performance and independence with ADL's, To improve ability of physical actions for home/community/work/leisure, To improve health of tissue, To decrease soft tissue restriction, To increase flexibility/ROM, To improve ability to perform tasks related to life management TENS: Yes IF ES: Yes Cryotherapy (ice pack, ice massage): Yes Thermo therapy (hot pack): Yes Ultrasound (thermal/non thermal): Yes For the Purpose of:: To decrease pain, To increase ROM, To improve ability to perform ADL's, To improve health of tissue, To decrease soft tissue restriction Thank you for the opportunity to evaluate your patient. For Medicare and Medicare HMO plans, please review the plan of care and approve it. It will need to be FAXED BACK to us at [phone] for Medicare purposes. For Medicare only, by signing this I certify the plan of care. Please let me know if there are questions or concerns regarding this plan of care. Physician Signature: Date:
--- NOTE | 2019-07-31 12:29 | HP.PTDCSUM ---
It has been my pleasure to treat JIMMIE ALY referred by Andrew Nelson DO, with the diagnosis of OTHER SYNOVITIS AND TENOSYNOVITIS RIGHT SHOULDER for a total of 6 visit(s). Discharge Date: 07/31/19 Please see the following information for a summary of their discharge status. Subjective: Doing well Return to all ADL'S and function R wrist Pain Intensity (Out of 10): 0 R SH Pain Intensity (Out of 10): 0 % Improvement: 90 Objective/Function: POSTURE: mild foward posture. AROM: shoulder flexion/abduction 160 degrees ,ER 90. MMT: RTC /5,DELTOID 4/5. -RTC specialist Goal 1:: Patient to be Independant with HEP. Goal Progress: Goal Met Goal 2:: Patient to improve posture for ADL'S and job demands Goal Progress: Goal Met Goal 3:: Patient decrease shoulder pain by 60% or > to improve function and ADL'S Goal Progress: Goal Met Goal 4:: Patient to increase AROM shoulder symmtrical R=L to improve function and job demnads Goal Progress: Goal Met Goal 5:: Patient increase shoulder quick dash by 5 points or > to improve QOL. Goal Progress: Goal Met Plan: d/c to [facility] Discharge Comments: [facility] If there are questions or concerns regarding this patient's physical therapy, please feel free to call me at [phone]. Thank you for the referral of this patient. Sincerely, Russell Cardoza, PT, Cert MDT, OCS
== END 2019-07-31 19:00 | disposition home or self-care (01) ==
LOC: PT 12:00
PROVIDERS: PCP Family Medicine; Referring Provider Orthopaedic Surgery; Visit Provider Orthopaedic Surgery
DX: M65.811 Other synovitis and tenosynovitis, right shoulder (principal)
CPT/HCPCS: 97014; 97110; 97162; G0283

== ENCOUNTER → 2019-12-23 10:27 | Outpatient (CLI) | payer OTHER, SELFPAY ==
[2019-01-15 14:14] VITALS: BMI 29.2
[2019-12-23 11:54] LABS: Absolute Lymphocyte Count 1.65 X10^3/uL (0.83-4.51); Absolute Neutrophil Count 3.8 X10^3/uL (2.0-7.7); Basophil# 0.04 X10^3/uL; Basophil% 0.6 % (0-1); Eosinophil# 0.14 X10^3/uL; Eosinophils% 2.3 % (0-5); Hematocrit 42.9 % (37-47); Hemoglobin 13.6 g/dL (12.0-15.0); Lymphocyte # 1.65 X10^3/ul (4.0); Lymphocyte % 26.6 % (19-41); Mean Corp Hgb Conc 31.7 g/dL (32-36); Mean Corpuscular Hgb 31.2 pg (27.0-32.0); Mean Corpuscular Volume 98.4 fL (81-99); Mean Platelet Vol. 10.4 fl (6.2-12.0); Monocyte# 0.56 X10^3/uL; NRBC Flagged by Analyzer 0 % (0-5); Neutrophil # 3.79 X10^3/uL (2.7-7.7); Neutrophil % 61.2 % (47-70); Platelet Count 257 K/mm3 (150-450); RBC Distribution Width CV 12.5 % (11.6-14.6); RBC Distribution Width SD 44.9 fl (35.1-43.9); Red Blood Count 4.36 M/mm3 (4.2-5.4); White Blood Count 6.2 K/mm3 (4.4-11.0)
[2019-12-23 12:19] LABS: Vitamin B12 849 pg/mL (211-911); Vitamin D,25 Hydroxy 37.8 ng/mL
[2019-12-23 12:23] LABS: ALB/GLOB Ratio 1.3 RATIO (0.9-2.4); AST(SGOT) 18 U/L (15-37); Alanine Aminotransfer ALT/SGPT 29 U/L (13-56); Albumin, Serum 4.1 g/dL (3.2-5.0); Alkaline Phosphatase 76 U/L (45-117); Anion Gap 2 (5-15); BUN 15 mg/dL (7-18); BUN/Creat Ratio 18.9 RATIO (10-20); Calcium,Total 8.9 mg/dL (8.5-10.1); Chloride 106 mmol/L (98-107); Creatinine, Serum 0.79 mg/dL (0.55-1.02); EST Glomerular Filtration Rate 80 mL/min (>60); Est Glom Filt Rate - Afr Amer 97 mL/min (>60); Free T3 2.9 pg/mL (2.18-3.98); Globulin 3.2 g/dL (2.2-4.2); Glucose 84 mg/dL (74-106); Iron 84 ug/dL (50-170); Magnesium 1.9 mg/dL (1.6-2.6); Potassium 3.9 mmol/L (3.5-5.1); Protein, Total 7.3 g/dL (6.4-8.2); Sodium Level 138 mmol/L (136-145); T4 Free Direct 0.99 ng/dL (0.76-1.46); Thyroid Stim Hormone (TSH) 0.91 uIU/mL (0.358-3.74)
== END ==
PROVIDERS: PCP Family Medicine; Visit Provider Family Medicine
DX: E03.9 Hypothyroidism, unspecified (principal); M79.10 Myalgia, unspecified site; E55.9 Vitamin D deficiency, unspecified; D64.9 Anemia, unspecified; R25.2 Cramp and spasm
CPT/HCPCS: 36415; 80053; 82306; 82607; 83540; 83735; 84439; 84443; 84481; 85025

== ENCOUNTER → 2020-07-08 15:32 | Outpatient (CLI) | payer OTHER, SELFPAY ==
[2019-01-15 14:14] VITALS: BMI 29.2
--- NOTE | 2020-07-08 15:39 | MRI_ITS ---
STUDY: MRI LEFT SHOULDER REASON FOR EXAM: Female, 55 years old. LEFT shoulder pain after lifting milk crate TECHNIQUE: Standardized fat and water weighted pulse sequences were obtained in all 3 orthogonal planes. COMPARISON: None. FINDINGS: Partial interstitial tearing of the supraspinatus tendon is present proximal to the greater tuberosity insertion site in addition to mild to moderate thickening of the surrounding fibers. Normal infraspinatus tendon. Normal subscapularis tendon. Normal teres minor tendon. Normal supraspinatus muscle. Normal infraspinatus muscle. Normal subscapularis muscle. Normal teres minor muscle. Normal glenohumeral articulation. Normal humeral head and visualized proximal humerus. Normal biceps labral complex. Normal intracapsular long biceps tendon. Normal labrum. Normal capsulo- ligamentous complex. Normal rotator interval. There is mild osteoarthritis of the acromioclavicular articulation. There is a Type II morphology (curved), with a neutral orientation. There is no subacromial-subdeltoid bursal fluid. Normal visualized coracohumeral and coracoacromial ligaments. Normal quadrilateral space. Normal axillary space. Normal deltoid muscle. Normal trapezius muscle. MRI/Upper Ext Joint Only(Routine) IMPRESSION: 1. Partial interstitial tearing of the supraspinatus tendon is present proximal to the greater tuberosity insertion site in addition to mild to moderate thickening of the surrounding fibers. Electronically Signed: Ra Smtih MD at 23:22 EST , Service support ,
== END ==
PROVIDERS: PCP Family Medicine; Referring Provider Physician Assistant; Visit Provider Physician Assistant
DX: M19.012 Primary osteoarthritis, left shoulder (principal)
CPT/HCPCS: 73221

== ENCOUNTER 2020-08-10 14:00 | Outpatient (RCR) | payer OTHER, SELFPAY ==
[2019-01-15 14:14] VITALS: BMI 29.2
--- NOTE | 2020-07-22 15:19 | HP.PTEVAL ---
Patient's Visit Information JIMMIE ALY is a 55 year old F referred to Physical Therapy by Trevon Patel PA-C with a diagnosis of L shoulder OA, RC strain. Date of Evaluation: 07/22/20 Physical Therapist: Dc Puri, DEANNT, OCS, CSCS - Visit Plan Frequency: 1-3x/week Duration: 4-6 Weeks Plan: up to 3x/week for 3-6 weeks as needed for... US nonthermal to L supra, grade 1-2 mobs and PROM L shoulder, pec stretches, postural adn rC strength to HEP. Will schedule one visit in a week to monitor activitiy modification given today and progress to strengthen or proceed with above plan. - Subjective Shoulder issues L. 3 months ago started hurting B. R one had therapy and felt better. Spasms in R are better. L one hurts anteriorly/ Crossing body hurts and lifting up hurts. Pain gets up to 1-3/10. Comfortable at rest. Sleep is interrupted as she sleeps on left side. 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 Pulling pants up at home hurts. Shuit on and off hurt. Sometimes lingers. No real hobbies, Activities at home can hurt but are normal. - Pain L shoulder Pain Intensity (Out of 10): 0 Pain Intensity Range: 0, 3 - Objective Posture is forward head and prottacted scap minimally. Tender to palpation supraspinatus on L side mod and R minimally. Trasnfers adn gait are I. Cervical aROM fulla nd painfree, - c/s compression test. UE AROM is full flexion and abduction B but some pain end range L flexion and IR/ER are symmetrical but end range pain ext rotation/IR. reflexes 2/3 bi and tri. Sensation WNL in UE to gross light touch. Strength EXt rotation L 3+ and painful, speeds 3+ and painful L. Others are 4/5 and without pain B. Pecs tight B - Goals Goal 1:: Full UE AROM without pain Goal Time Frame: 4-6 Weeks Goal 2:: Pt feel 90% better in shoulder movement and activity with 1/10 pain at worst and manageable Goal Time Frame: 4-6 Weeks Goal 3:: Put on shirt and pull up pants without pain Goal Time Frame: 4-6 Weeks Goal 4:: Work without limitations from L UE. Goal Time Frame: 4-6 Weeks Goal 5:: I approp HEP to minimize future problems. Goal Time Frame: 4-6 Weeks - Rehabilitation Potential Physical Therapy Diagnosis: L shoulder impingement causing inflammationa nd pain with mobility. Rehabilitation Potential: Fair - Anticipated Interventions Patient/Client Instruction: Educate patient on: Condition, Plan of Care For the Purpose of:: To decrease pain, To improve muscle performance and motor function, To increase tolerance to activity/condition/position, To improve ability of physical actions for home/community/work/leisure Therapeutic Exercise to Include: Strength training, Postural training, Flexibilty training, Gait and locomotor training, Neuromotor development, Passive ROM, Active ROM, Scapular Strength/Stabilization For the Purpose of:: To decrease pain, To increase ROM, To improve muscle performance and motor function, To increase tolerance to activity/condition/position, To improve ability of physical actions for home/community/work/leisure Manual Therapy Techniques to Include: Mobilization, Passive ROM, Soft tissue mobilization For the Purpose of:: To decrease pain, To improve muscle performance and motor function, To increase tolerance to activity/condition/position, To improve ability of physical actions for home/community/work/leisure Cryotherapy (ice pack, ice massage): Yes Ultrasound (thermal/non thermal): Yes For the Purpose of:: To decrease pain, To decrease swelling/inflammation Thank you for the opportunity to evaluate your patient. For Medicare and Medicare HMO plans, please review the plan of care and approve it. It will need to be FAXED BACK to us at [phone] for Medicare purposes. For Medicare only, by signing this I certify the plan of care. Please let me know if there are questions or concerns regarding this plan of care. Physician Signature: Date:
--- NOTE | 2020-08-10 14:30 | HP.PTREVAL ---
Trevon Patel PA-C, It has been my pleasure to treat JIMMIE ALY over the last 3 visits for L shoulder OA, RC strain. Please see the progress note below for an update on the physical therapy plan of care! Subjective: Shoulder rreally sore. Working Saturday thrsaturday adn it is sore after that busy 3 days. 8/10 anterior and lateral L shoulder. Tired enough that she is sleeping Ok. Activities are normal adn she does it. Objective/Function: Full aROM but pain at end flexiona dn painful arc abduction. flexion and empty can and abduction painful L shoulder resisted adn 3+ strength, ext rotation 4- adn painful, IR 4. Overall decent function but pain is frustrating. Recommend back to doctor for next step next week adn call aftter for more frequent therapy or d/c Plan Plan: pt to dinh fter doctor visit next week for more frequent therapy US, MH TENs adn mobs , strength or d/c if better otpions with doctor. Goals Goal 1:: Full UE AROM without pain Goal Time Frame: 4-6 Weeks Goal Progress: still painful Goal 2:: Pt feel 90% better in shoulder movement and activity with 1/10 pain at worst and manageable Goal Time Frame: 4-6 Weeks Goal Progress: Not Progressing Goal 3:: Put on shirt and pull up pants without pain Goal Time Frame: 4-6 Weeks Goal Progress: Not Progressing Goal 4:: Work without limitations from L UE. Goal Time Frame: 4-6 Weeks Goal Progress: Not Progressing Goal 5:: I approp HEP to minimize future problems. Goal Time Frame: 4-6 Weeks Goal Progress: Goal Met Anticipated Interventions Patient/Client Instruction: Educate patient on: Condition, Plan of Care For the Purpose of:: To decrease pain, To improve muscle performance and motor function, To increase tolerance to activity/condition/position, To improve ability of physical actions for home/community/work/leisure Therapeutic Exercise to Include: Strength training, Postural training, Flexibilty training, Gait and locomotor training, Neuromotor development, Passive ROM, Active ROM, Scapular Strength/Stabilization For the Purpose of:: To decrease pain, To increase ROM, To improve muscle performance and motor function, To increase tolerance to activity/condition/position, To improve ability of physical actions for home/community/work/leisure Manual Therapy Techniques to Include: Mobilization, Passive ROM, Soft tissue mobilization For the Purpose of:: To decrease pain, To improve muscle performance and motor function, To increase tolerance to activity/condition/position, To improve ability of physical actions for home/community/work/leisure Cryotherapy (ice pack, ice massage): Yes Ultrasound (thermal/non thermal): Yes For the Purpose of:: To decrease pain, To decrease swelling/inflammation Please do not hesitate to contact me at [phone] by phone or if you have questions or concerns regarding this new plan of care! Sincerely, Dc Puri, DPT, OCS, CSCS
--- NOTE | 2020-09-21 15:43 | HP.PT.NRP ---
JIMMIE ALY was seen in my office for initial evaluation on 07/22/20. The following Plan of Care was established for this patient: Initial Frequency: 1-3x/week Initial Duration: 4-6 Weeks Patient/Client Instruction: Educate patient on: Condition, Plan of Care For the Purpose of:: To decrease pain, To improve muscle performance and motor function, To increase tolerance to activity/condition/position, To improve ability of physical actions for home/community/work/leisure Therapeutic Exercise to Include: Strength training, Postural training, Flexibilty training, Gait and locomotor training, Neuromotor development, Passive ROM, Active ROM, Scapular Strength/Stabilization For the Purpose of:: To decrease pain, To increase ROM, To improve muscle performance and motor function, To increase tolerance to activity/condition/position, To improve ability of physical actions for home/community/work/leisure Manual Therapy Techniques to Include: Mobilization, Passive ROM, Soft tissue mobilization For the Purpose of:: To decrease pain, To improve muscle performance and motor function, To increase tolerance to activity/condition/position, To improve ability of physical actions for home/community/work/leisure Cryotherapy (ice pack, ice massage): Yes Ultrasound (thermal/non thermal): Yes For the Purpose of:: To decrease pain, To decrease swelling/inflammation This patient was last seen in our office 08/10/20. Pertinent comments regarding their Physical therapy will appear below: Pt seen for 3 visits adn was sent back to doctor due to lack of improvement. She has since had surgery and a new chart opened post surgically, will discontinue this chart. At this point I will be discontinuing this patient from physical therapy. I would be happy to see this patient again in the future if found appropriate by the physician. Thank you! Dc Puri, DPT, OCS, CSCS
== END 2020-08-10 19:00 | disposition home or self-care (01) ==
LOC: PT 14:00
PROVIDERS: PCP Family Medicine; Visit Provider Physician Assistant
DX: M19.012 Primary osteoarthritis, left shoulder (principal); S46.012D Strain of muscle(s) and tendon(s) of the rotator cuff of left shoulder, subsequent encounter
CPT/HCPCS: 97014; 97110; 97161; 97164; G0283

== ENCOUNTER 2020-08-29 10:36 | Day surgery (SDC) | payer OTHER, SELFPAY ==
[2019-01-15 14:14] VITALS: BMI 29.2
--- NOTE | 2020-08-22 09:07 | EKG12_ITS ---
Test Reason : PRE OP Blood Pressure : / mmHG Vent. Rate : 089 BPM Atrial Rate : 089 BPM P-R Int : 146 ms QRS Dur : 072 ms QT Int : 344 ms P-R-T Axes : 035 018 053 degrees QTc Int : 418 ms Normal sinus rhythm Septal infarct , age undetermined Abnormal ECG Confirmed by THERESE BOOGIE, SHARMAINE ([id number]), publications editor EARLENE PATEL ([id number]) on 08/24/2020 7:38:23 AM Referred By: Andrew Nelson Confirmed By:SHARMAINE SALEH MD
[2020-08-22 10:42] LABS: Hematocrit 42.6 % (37-47); Mean Corp Hgb Conc 32.9 g/dL (32-36); Mean Corpuscular Hgb 32.3 pg (27.0-32.0); Mean Corpuscular Volume 98.2 fL (81-99); Mean Platelet Vol. 10.3 fl (6.2-12.0); Platelet Count 270 K/mm3 (150-450); RBC Distribution Width CV 13.1 % (11.6-14.6); RBC Distribution Width SD 46.5 fl (35.1-43.9); Red Blood Count 4.34 M/mm3 (4.2-5.4); White Blood Count 6.4 K/mm3 (4.4-11.0)
[2020-08-22 11:04] LABS: Anion Gap 6 (5-15); BUN 18 mg/dL (7-18); BUN/Creat Ratio 22.6 RATIO (10-20); Chloride 105 mmol/L (98-107); EST Glomerular Filtration Rate 79 mL/min (>60); Est Glom Filt Rate - Afr Amer 96 mL/min (>60); Glucose 96 mg/dL (74-106); Potassium 4.2 mmol/L (3.5-5.1); Sodium Level 138 mmol/L (136-145)
[2020-08-29] VITALS (10 sets, daily range): BP systolic 126–167; BP diastolic 63–88; PULSE 76–116; RESP 16; TEMP 36.1–36.6; O2SAT 92–100; BMI 29.4
[2020-08-29] MEDS: Lactated Ringers 1,000 ML 100 ML IV ×2 (11:12→15:30)
[2020-08-29] MEDS: Bupiv/Epi 0.25% 30 ML Vial (14:14)
[2020-08-29] MEDS: Epinephrine (1 mg/ml) 1 MG/ML VIAL ×2 (14:15→14:47)
[2020-08-29] MEDS: Cefazolin 2 GM in 0.9% Normal Saline 100 ML IV (14:25)
--- NOTE | 2020-08-29 16:09 | OP.PCM_ITS ---
Report of Operation Date of Procedure: 08/29/20 Pre-Operative Diagnosis: SAIS, bicipital tendonitis, AC arthrosis, RCT left shoulder Post-Operative Diagnosis: same Surgery/Procedure Performed:: ASD, Joseph procedure, Biceps tenotomy, RCR linux vmware administrator: Trevon Patel Type of Anesthesia:: General/Regional Anesthesiologist: Dc Sutton - Admit VTE Documentation VTE Present on Admission: No VTE Mechan Device Prophylaxis: SCD's VTE Pharm Prophylaxis ordered?: No Reason prophylaxis not ordered:: Treatment Not Indicated
== END 2020-08-29 18:59 | disposition home or self-care (01) ==
LOC: SDC 10:38 → AC 10:39
PROVIDERS: PCP Family Medicine; Referring Provider Orthopaedic Surgery; Visit Provider Orthopaedic Surgery
PROC: (CPT 29827; principal; 2020-08-29 11:50)
DX: M75.22 Bicipital tendinitis, left shoulder (principal); M19.012 Primary osteoarthritis, left shoulder
CPT/HCPCS: 23405; 29824; 64450; 36415; 80048; 85027; 87426; 93005; C9803; J7120; J2405

== ENCOUNTER 2020-12-06 15:30 | Outpatient (RCR) | payer OTHER, SELFPAY ==
[2019-01-15 14:14] VITALS: BMI 29.2
[2020-08-29 11:04] VITALS: BMI 29.4
--- NOTE | 2020-09-06 18:09 | HP.PTEVAL ---
Patient's Visit Information JIMMIE ALY is a 55 year old F referred to Physical Therapy by Trevon Patel PA-C with a diagnosis of RCR 08/29/20, strain of RC, OA. Date of Evaluation: 09/06/20 Physical Therapist: Dc Puri, DPT, OCS, CSCS - Visit Plan Frequency: 1-2x /Week Duration: 3 Months Plan: 1-2x/week for 6-10 weeks overall as needed. Start with PROM including teaching significant other PROM as able. Progress as tolerated to AAROM and AROM in mid September. Strength in mid October. ice 20 minutes if sore, progress HEP as tolerated and needed each visit. - Subjective L RCR 08/29/20. Has sling wth abductor wedge adn ball and is in it allt he time. Off just to take a shower. 0/10 pain at rest. Moving hand is getting easier. Showered by self today. Dressing self slowly. Steps are OK. Sleep is rough as she feels crunched and sleeps in spare bedroom propped up. Sleeping all night. 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 Has to lift out in front. Exercises moving elbow and hand. None for houlder. Hangs out with dogs and is crafty. - Pain L shoulder Pain Intensity (Out of 10): 0 Pain Intensity Range: 0, 4 - Objective Sling on with abd wedge adn squeeze ball donned and doffed I. Incisions are dressed with bandaid and appear arthroscopic. No signs of excessive redness, heat or swelling. Brusig anterior in pec muscle L. L scap mobility slightly limited vs R but not painful. elbow and wrist and hand AROM WFL B and symmetrical. Some minor tight feeling elbow flexion anterior shoulder. PROM L flexion 110, abd 100, ext rotation 55, IR 60 at 80 abd. Walks and trasnfers I taking care of L shoulder. Overall pt doing very well with pain and PROM. - Goals Goal 1:: ST: Full PROM without pain Goal Time Frame: 2-4 Weeks Goal 2:: Midterm: Full aROM withotu pain Goal Time Frame: 6-8 Weeks Goal 3:: mid term: pt sleep without interruption form shoulder Goal Time Frame: 4-6 Weeks Goal 4:: LT: Plan to return to work without limitations Goal Time Frame: 8-12 Weeks Goal 5:: I management of condition including strengthening ex Goal Time Frame: 8-12 Weeks Goal 6:: Pt feel 100% better overall Goal Time Frame: 8-12 Weeks - Rehabilitation Potential Physical Therapy Diagnosis: s/p L RCR 08/29 Rehabilitation Potential: Good - Anticipated Interventions Patient/Client Instruction: Educate patient on: Condition, Plan of Care For the Purpose of:: To decrease pain, To increase ROM, To improve nutrient delivery to tissue, To improve muscle performance and motor function, To increase tolerance to activity/condition/position, To improve ability of physical actions for home/community/work/leisure Therapeutic Exercise to Include: Passive ROM For the Purpose of:: To decrease pain, To increase ROM, To increase tolerance to activity/condition/position Manual Therapy Techniques to Include: Scar massage, Passive ROM For the Purpose of:: To decrease pain, To increase ROM Cryotherapy (ice pack, ice massage): Yes For the Purpose of:: To decrease pain, To decrease swelling/inflammation Thank you for the opportunity to evaluate your patient. For Medicare and Medicare HMO plans, please review the plan of care and approve it. It will need to be FAXED BACK to us at [phone] for Medicare purposes. For Medicare only, by signing this I certify the plan of care. Please let me know if there are questions or concerns regarding this plan of care. Physician Signature: Date:
--- NOTE | 2020-10-26 16:05 | HP.PTREVAL ---
Trevon Patel PA-C, It has been my pleasure to treat JIMMIE ALY over the last 9 visits for Left RCR and Bicep 08/29/20, Strain of RC, OA. Please see the progress note below for an update on the physical therapy plan of care! Subjective: Not a lot of pain. Went to doctor nd very little info given. Got rid of sling adn needs more IR. Was sick last week. Objective/Function: AROM flex 155 L and ext rotation 50 today. Painful arc at 90 degrees. Pt on target adn progressing appropriately, appropriate to cotninue with fair prognosis. Plan Plan: weekly to progress phase 2 to phase 3 to tolerance. Next session start isometric strength and seated stic abd and check aROM. Goals Goal 1:: ST: Full PROM without pain Goal Time Frame: 2-4 Weeks Goal Progress: Progressing Goal 2:: Midterm: Full aROM withotu pain Goal Time Frame: 6-8 Weeks Goal Progress: Progressing Goal 3:: mid term: pt sleep without interruption form shoulder Goal Time Frame: 4-6 Weeks Goal Progress: Progressing Goal 4:: LT: Plan to return to work without limitations Goal Time Frame: 8-12 Weeks Goal 5:: I management of condition including strengthening ex Goal Time Frame: 8-12 Weeks Goal 6:: Pt feel 100% better overall Goal Time Frame: 8-12 Weeks Anticipated Interventions Patient/Client Instruction: Educate patient on: Condition, Plan of Care For the Purpose of:: To decrease pain, To increase ROM, To improve nutrient delivery to tissue, To improve muscle performance and motor function, To increase tolerance to activity/condition/position, To improve ability of physical actions for home/community/work/leisure Therapeutic Exercise to Include: Passive ROM For the Purpose of:: To decrease pain, To increase ROM, To increase tolerance to activity/condition/position Manual Therapy Techniques to Include: Scar massage, Passive ROM For the Purpose of:: To decrease pain, To increase ROM Cryotherapy (ice pack, ice massage): Yes For the Purpose of:: To decrease pain, To decrease swelling/inflammation Please do not hesitate to contact me at [phone] by phone or if you have questions or concerns regarding this new plan of care! Sincerely, Dc Puri, DPT, OCS, CSCS
--- NOTE | 2020-11-09 15:58 | HP.PTREVAL ---
Trevon Patel PA-C, It has been my pleasure to treat JIMMIE ALY over the last 11 visits for Left RCR and Bicep 08/29/20, Strain of RC, OA. Please see the progress note below for an update on the physical therapy plan of care! Subjective: Sore L shoulder as I may overdo it with laundry and reaching across body. Dog did tug on shoulder accidentally last week when she forgot adn held leash with L arm. Objective/Function: 145 AROM flexion but painful arc, same with abd, 48 ext rotation and L4 IR. Rotations are not apianful but painful arc and little hitch patient gets at 90- degrees with elevation is worse today. still painfree at rest. Still able to resist er and flexion and integrity seems intact but painful. Slow progression toward appropriate goals but painful hitch seems to be a limiting factor and not improving as we woudl expect it to. Plan Plan: Pt to rest/ice it this week and see doctor Saturday to ensure integirty. Plan is to continue weekly ex progression of HEP. Next session to YTB phase 3 and home if patient tolerates without pain. ensure AROM is still improving and painful arc is improving. Doctor xavier ee Saturday and can change poc if needed. Goals Goal 1:: ST: Full PROM without pain Goal Time Frame: 2-4 Weeks Goal Progress: Progressing Goal 2:: Midterm: Full aROM withotu pain Goal Time Frame: 6-8 Weeks Goal Progress: Progressing Goal 3:: mid term: pt sleep without interruption form shoulder Goal Time Frame: 4-6 Weeks Goal Progress: Progressing Goal 4:: LT: Plan to return to work without limitations Goal Time Frame: 8-12 Weeks Goal 5:: I management of condition including strengthening ex Goal Time Frame: 8-12 Weeks Goal 6:: Pt feel 100% better overall Goal Time Frame: 8-12 Weeks Anticipated Interventions Patient/Client Instruction: Educate patient on: Condition, Plan of Care For the Purpose of:: To decrease pain, To increase ROM, To improve nutrient delivery to tissue, To improve muscle performance and motor function, To increase tolerance to activity/condition/position, To improve ability of physical actions for home/community/work/leisure Therapeutic Exercise to Include: Passive ROM For the Purpose of:: To decrease pain, To increase ROM, To increase tolerance to activity/condition/position Manual Therapy Techniques to Include: Scar massage, Passive ROM For the Purpose of:: To decrease pain, To increase ROM Cryotherapy (ice pack, ice massage): Yes For the Purpose of:: To decrease pain, To decrease swelling/inflammation Please do not hesitate to contact me at [phone] by phone or if you have questions or concerns regarding this new plan of care! Sincerely, Dc Puri, DPT, OCS, CSCS
--- NOTE | 2020-12-06 15:59 | HP.PTREVAL ---
Trevon Patel PA-C, It has been my pleasure to treat JIMMIE ALY over the last 15 visits for Left RCR and Bicep 08/29/20, Strain of RC, OA. Please see the progress note below for an update on the physical therapy plan of care! Subjective: Doing great. last visit today. To doctor 12/20 with tentative release to work 01/02. Sleep is improving but ipsilateral shoulder hurts hawa on isde, not horrible, no throbbing. UT remains tight but stretch helps. In car 12 hours hurts neck a little bit. Activities at home are close to normal. Objective/Function: 160 flexiona dn abduction 60 ext rotation and L3 IR. Strerngth is weak at 4- in ext rotationa dn flexion, 4 in abd, 4+ in IR adn 5 in bi and tri. Doing very well with ROM and improving strength slowly. 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 Plan Plan: f/u two weeks for recheck after patient sees doctor adn progression of ex as needed. Continue toward goals, fair prognosis. Goals Goal 1:: ST: Full PROM without pain Goal Time Frame: 2-4 Weeks Goal Progress: Goal Met Goal 2:: Midterm: Full aROM withotu pain Goal Time Frame: 6-8 Weeks Goal Progress: Goal Met Goal 3:: mid term: pt sleep without interruption form shoulder Goal Time Frame: 4-6 Weeks Goal Progress: Progressing Goal 4:: LT: Plan to return to work without limitations Goal Time Frame: 8-12 Weeks Goal 5:: I management of condition including strengthening ex Goal Time Frame: 8-12 Weeks Goal Progress: Goal Met Goal 6:: Pt feel 100% better overall Goal Time Frame: 8-12 Weeks Goal Progress: 80% Anticipated Interventions Patient/Client Instruction: Educate patient on: Condition, Plan of Care For the Purpose of:: To decrease pain, To increase ROM, To improve nutrient delivery to tissue, To improve muscle performance and motor function, To increase tolerance to activity/condition/position, To improve ability of physical actions for home/community/work/leisure Therapeutic Exercise to Include: Passive ROM For the Purpose of:: To decrease pain, To increase ROM, To increase tolerance to activity/condition/position Manual Therapy Techniques to Include: Scar massage, Passive ROM For the Purpose of:: To decrease pain, To increase ROM Cryotherapy (ice pack, ice massage): Yes For the Purpose of:: To decrease pain, To decrease swelling/inflammation Please do not hesitate to contact me at [phone] by phone or if you have questions or concerns regarding this new plan of care! Sincerely, Dc Puri, DPT, OCS, CSCS
--- NOTE | 2021-02-02 15:59 | HP.PT.NRP ---
JIMMIE ALY was seen in my office for initial evaluation on 09/06/20. The following Plan of Care was established for this patient: Initial Frequency: 1-2x /Week Initial Duration: 3 Months Patient/Client Instruction: Educate patient on: Condition, Plan of Care For the Purpose of:: To decrease pain, To increase ROM, To improve nutrient delivery to tissue, To improve muscle performance and motor function, To increase tolerance to activity/condition/position, To improve ability of physical actions for home/community/work/leisure Therapeutic Exercise to Include: Passive ROM For the Purpose of:: To decrease pain, To increase ROM, To increase tolerance to activity/condition/position Manual Therapy Techniques to Include: Scar massage, Passive ROM For the Purpose of:: To decrease pain, To increase ROM Cryotherapy (ice pack, ice massage): Yes For the Purpose of:: To decrease pain, To decrease swelling/inflammation This patient was last seen in our office 12/06/20. Pertinent comments regarding their Physical therapy will appear below: Pt seen 15 visits and was 80% better. She called to cancel the last visit in her POC stating doctor said she did not need it. At this point, I will disocntinue her from PT. At this point I will be discontinuing this patient from physical therapy. I would be happy to see this patient again in the future if found appropriate by the physician. Thank you! Dc Puri, DPT, OCS, CSCS Balance/Gait/Functional tests - Balance/Special Test Scores Quick DASH Score: [phone]
== END 2020-12-06 19:00 | disposition home or self-care (01) ==
LOC: PT 15:30
PROVIDERS: PCP Family Medicine; Visit Provider Physician Assistant
DX: S46.012D Strain of muscle(s) and tendon(s) of the rotator cuff of left shoulder, subsequent encounter (principal); X58.XXXD Exposure to other specified factors, subsequent encounter; M19.012 Primary osteoarthritis, left shoulder
CPT/HCPCS: 97110; 97140; 97161; 97164; 97530

== ENCOUNTER → 2021-01-13 12:23 | Outpatient (CLI) | payer OTHER, SELFPAY ==
[2020-08-29 11:04] VITALS: BMI 29.4
--- NOTE | 2021-01-13 13:00 | MRI_ITS ---
STUDY: MRI LEFT SHOULDER REASON FOR EXAM: Female, 55 years old. LEFT shoulder pain no new injury h/o sx x 2 TECHNIQUE: Standardized fat and water weighted pulse sequences were obtained in all 3 orthogonal planes. COMPARISON: 07/08/2020. FINDINGS: Evidence of previous rotator cuff repair. Moderate supraspinatus and infraspinatus tendinosis with mild insertional tendon fraying. No high-grade or full-thickness recurrent rotator cuff tear. Moderate subscapularis tendinosis with deep fiber fraying (axial image 9 series 3). Normal teres minor tendon. No significant muscle atrophy. Intracapsular long biceps tendon rupture. Labral degeneration with superior labral tear (axial images 7 through 9 series 3). Mild capsular thickening. Normal rotator cuff interval. Moderate glenohumeral cartilage loss. Moderate acromioclavicular joint arthrosis. Anterior interval mild narrowing. No acute fracture, dislocation or bone destruction. Small volume glenohumeral joint effusion. Mild subacromial subdeltoid bursitis. Intact coracohumeral and coracoacromial ligaments. Normal quadrilateral space. Normal axillary space. Normal deltoid muscle. Normal trapezius muscle. MRI/Upper Ext Joint Only(Routine) IMPRESSION: Previous rotator cuff repair without recurrent high-grade or full-thickness tear Moderate rotator cuff tendinosis with low-grade partial-thickness rotator cuff tears Intracapsular long biceps tendon rupture Labral degeneration with superior labral tear and mild capsular thickening Glenohumeral and AC joint arthrosis with early anterior impingement Glenohumeral joint effusion and mild subacromial subdeltoid bursitis Electronically Signed: Dc Arciniega DO at 13:50 EDT Tel , Service support ,
== END ==
PROVIDERS: PCP Family Medicine; Referring Provider Orthopaedic Surgery; Visit Provider Orthopaedic Surgery
DX: S46.012D Strain of muscle(s) and tendon(s) of the rotator cuff of left shoulder, subsequent encounter (principal); M19.012 Primary osteoarthritis, left shoulder; M75.42 Impingement syndrome of left shoulder
CPT/HCPCS: 73221

== ENCOUNTER → 2021-05-16 13:25 | Outpatient (CLI) | payer MEDICARE, SELFPAY | PROVIDERS: PCP Family Medicine; Visit Provider Physician Assistant Surgical | DX: U07.1 COVID-19 (principal) | CPT/HCPCS: 87635; U0005; U0003 ==

== ENCOUNTER → 2022-01-19 | Outpatient (CLI) | payer BC, SELFPAY ==
[2022-01-19 09:24] LABS: Erythrocyte Sedimentation Rate 17 mm/hr (0-30)
[2022-01-19 09:28] LABS: Absolute Neutrophil Count 5.9 X10^3/uL (2.0-7.7); Basophil# 0.05 X10^3/uL; Basophil% 0.6 % (0-1); Eosinophil# 0.15 X10^3/uL; Eosinophils% 1.8 % (0-5); Hematocrit 40.9 % (37-47); Hemoglobin 13.5 g/dL (12.0-15.0); Lymphocyte % 18.1 % (19-41); Mean Corpuscular Hgb 32.1 pg (27.0-32.0); Mean Corpuscular Volume 97.4 fL (81-99); Mean Platelet Vol. 9.8 fl (6.2-12.0); Monocyte% 8.4 % (0-10); NRBC Flagged by Analyzer 0 % (0-5); Neutrophil # 5.86 X10^3/uL (2.7-7.7); Neutrophil % 70.7 % (47-70); Platelet Count 355 K/mm3 (150-450); RBC Distribution Width SD 43.4 fl (35.1-43.9); White Blood Count 8.3 K/mm3 (4.4-11.0)
[2022-01-19 09:59] LABS: CPK Total, Creatine Kinase 56 U/L (26-192); Rheumatoid Factor < 10.0 IU/mL (<15); Thyroid Stim Hormone (TSH) 1.22 uIU/mL (0.358-3.74)
[2022-01-24 08:21] LABS: ANTINUCLEAR ANTIBODIES DIRECT Negative (Negative)
[2022-01-24 08:29] LABS: CCP IgG Antibodies 8 units (0-19)
== END | disposition home or self-care (01) ==
PROVIDERS: PCP Family Medicine; Referring Provider Family Medicine; Visit Provider Family Medicine
DX: M79.10 Myalgia, unspecified site (principal)
CPT/HCPCS: 36415; 82550; 84443; 85025; 85652; 86038; 86140; 86200; 86431

== ENCOUNTER 2022-02-01 09:31 | Emergency (ER) | payer BC, SELFPAY ==
[2022-02-01 09:33] VITALS: BP 154/76; PULSE 89; RESP 17; TEMP 36.8; O2SAT 100; BMI 25.0
--- NOTE | 2022-02-01 09:56 | EX.ED.UPPERE ---
HPI History of Present Illness Chief Complaint: Upper Extremity Injury Informant: patient Onset/Context/Timing Onset: Month(s) (about 6-7) Context: Gradual Onset Timing: Continuous and Waxes and wanes Quality of Pain: - (pain) Location: BUE Current Severity: Severe Maximum Severity: Severe Worsened by: lifting arms Relieved by: Prednisone when she took it a month ago. 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 She states this is been going on intermittently since July. She has seen her physician for this, she states she has received some work-up for a couple different types of arthritis. She has symptoms in her legs as well that she thinks may be sciatica. She states sitting commonly is very uncomfortable, she does not have low back discomfort is much, but she does have discomfort in her neck, lower bilateral trapezius area she points to, and it goes all the way down the side of both upper arms and forearms, along with some tingling and discomfort (right now just pain but not tingling) in the thumb on both sides. She states none of the symptoms are new, but today seems to be worse, and she states she was miserable driving into work because of having to raise her arms up to the steering wheel. Both sides are affected. She states that the weakness is also not new, and is intermittent since July. She denies headache, vision trouble, numbness in her legs or weakness there right now although she has had both in the past, and states that at times when she is sitting the pain radiates down to her foot on both sides. Right now that is not occurring but she is uncomfortable in her thighs/buttocks with sitting and wants to stand. She had MRI of her left shoulder a couple times last year and had a rotator cuff repair. She has never had any imaging of her neck. She states that she was on prednisone about a month ago for these exact same symptoms and it really helped transiently until she was off of it. [facility] Medical History (Updated 02/01/22 @ 11:[address] Nadir Castano MD) Hay fever Hypertension Knee pain Home Medications cetirizine 10 mg capsule 10 mg PO DAILY 06/25/16 [History Last Taken 09/09/17] citalopram 10 mg tablet (Celexa) 40 mg PO QHS 08/25/17 [History Last Taken 09/08/17] cyclobenzaprine 5 mg tablet 5 mg PO Q8H PRN PRN Muscle Spasm 08/25/17 [History Last Taken Unknown] lisinopril 20 mg tablet 20 mg PO DAILY 09/09/17 [History Last Taken 09/09/17] nabumetone 750 mg tablet 750 mg PO DAILY 03/26/18 [History Last Taken Unknown] gabapentin 300 mg capsule 300 mg PO TID 1 month #90 caps 02/01/22 [Rx Last Taken Unknown] prednisone 10 mg tablet 10 mg PO UD #30 tabs 02/01/22 [Rx Last Taken Unknown] Allergy/AdvReac Type Severity Reaction Status Date / Time Sulfa (Sulfonamide Allergy Unknown Verified 02/01/22 09:32 Antibiotics) Surgical History History of knee surgery History of shoulder surgery History of tubal ligation Social History Smoking Status: Former smoker alcohol intake: never ROS ROS ED Constitutional Constitutional ED: Denies chills or fever(s) Eyes Eyes: Denies blurry vision, change in vision or diplopia ENT ENT ED: Denies ear pain, rhinorrhea or sore throat Cardiovascular Cardiovascular: Denies chest pain, palpitations or racing heartbeat Respiratory/Chest Respiratory/Chest: Denies cough or dyspnea Gastrointestinal Gastrointestinal: Denies abdominal pain, nausea or vomiting Genitourinary Genitourinary ED: Denies dysuria or hematuria Musculoskeletal Musculoskeletal: Reports as per HPI, extremity pain and neck pain; Denies back pain or myalgias Integumentary Denies abscess, Abrasions or rash Neurologic Neurologic: Reports as per HPI, paresthesias RUE and LUE and weakness; Denies headache(s) Psychiatric Psychiatric: Denies suicidal ideation or suicidal thoughts Endocrine Endocrinology: Denies cold intolerance or heat intolerance Hematologic/Lymphatic Hematologic/Lymphatic: Denies easy bleeding or easy bruising Allergic/Immunologic Allergic/Immunologic ED: Denies mouth swelling, tongue swelling or urticaria EXAM Physical Exam Const Vital Signs: 02/01/22 09:33 Temperature 98.3 F Temperature Source Temporal Pulse Rate 89 Respiratory Rate 17 Blood Pressure 154/76 H Blood Pressure Mean 102 Pulse Ox 100 Oxygen Delivery Method Room Air Positive well nourished and well developed General Appearance ED: well developed and NAD HEENT Reports moist mucous membranes normocephalic and atraumatic Eyes PERRL and EOMs intact bilaterally Neck full ROM and supple Neck Narrative: Tender bilateral trapezius. Normal inspection no rash. Resp normal respiratory effort Back/Spine no CVA tenderness Back/Spine Narrative: No low back tenderness or rash. Negative straight leg raises while sitting. Lumbar Spine / Lower Back: straight leg raise negative bilaterally Extremity normal to inspection and full ROM Extremity Narrative: 2+/4 bilateral radial pulses. Neuro oriented x3, CN's II-XII intact bilaterally and moves all extremities Neuro Narrative: Weak all muscle groups both upper extremities, symmetrically. Diminished reflexes both upper extremities, biceps, triceps, brachioradialis, symmetric. Better reflexes in lower extremities. Downgoing toes no clonus. Subjective decrease sensation both thumbs only with regards to the hands. Normal throughout all other fingers. Psych Psych Narrative: Anxious but otherwise normal mental status Skin Lesions: no lesions Rashes: no rashes Trauma: no lacerations or abrasions MDM MDM MDM Narrative Medical decision making narrative: I think this patient probably has radicular disease in her neck. It is possible she has sciatica as well but it is also possible her lower extremity issues are coming from her neck depending on what the problem is. I think an MRI of her cervical spine is probably the next best test, which is not indicated acutely, all of these symptoms are chronic for at least 6 months, just acutely worse right now. Since prednisone helped in the past and she has no contraindications for it and is not a diabetic, I am happy to start her on prednisone again in addition to gabapentin, and she was given an oxycodone for pain right now and I obtained cervical spine x-rays since she has not had those in the past year. The cervical spine x-rays 4 views of my interpretation show nothing acute. However, radiology in agreement that the disc spaces are narrowed at the C5-6 and C6-7 levels, her symptoms are most consistent with a C6 radiculopathy bilaterally. These x-rays are consistent with that. She is feeling a lot better after I gave her an oxycodone, gabapentin 300 mg, and prednisone 60 mg. I am going to prescribe her a course of prednisone and gabapentin until she can follow-up with her PCP, as I think this is all radicular. Discharge Plan Triage Chief Complaint: Upper Extremity Injury ED Provider: Nadir Castano Dx/Rx/DC Orders Clinical Impression: Cervical radiculopathy at C6, Bilateral sciatica Instructions: ED Radiculopathy, Cervical Prescriptions: New prednisone 10 mg tablet 10 mg PO UD Qty: 30 0RF Rx Instructions: Take 4 tablets daily for 3 days, then 3 daily for 3 days, then 2 daily for 3 days, then 1 a day for 3 days gabapentin 300 mg capsule 300 mg PO TID 30 Days Qty: 90 0RF Rx Instructions: On first day, take 1 capsule po BID No Action cyclobenzaprine 5 mg tablet 5 mg PO Q8H PRN PRN (Reason: Muscle Spasm) citalopram [Celexa] 10 mg tablet 40 mg PO QHS nabumetone 750 mg tablet 750 mg PO DAILY cetirizine 10 MG capsule 10 mg PO DAILY lisinopril 20 MG tablet 20 mg PO DAILY Stand Alone Forms: ED Work / School Excuse Primary Care Provider: Leah Callejas Referrals: Leah Callejas DO [Primary Care Provider] - 1-2 Weeks Activity Restrictions/Additional Instructions: You already received doses for today 02/01, start both prescriptions on 02/02. Disposition Disposition: Home, Self Care
--- NOTE | 2022-02-01 10:05 | RAD_ITS ---
STUDY: X-RAY - CERVICAL SPINE REASON FOR EXAM: Female, 56 years old. pain, radiculopathy TECHNIQUE: 3 view(s) of the cervical spine were obtained. COMPARISON: None FINDINGS: Normal anterior atlantoaxial articulation. Normal odontoid process. Normal cervical lordosis. Mild disc space narrowing and anterior endplate spurring is present at C5-C6 and C6-C7. Mild anterior endplate spurring is also present at C4-C5. The remaining disc spaces are preserved. The soft tissue structures are unremarkable. RAD/Cerv Spine 2 or 3 Views IMPRESSION: 1. Mild degenerative changes of cervical spine. Electronically Signed: Ra Smith MD at 10:28 EDT ,
[2022-02-01] MEDS: predniSONE 20 MG Tablet 60 MG PO (10:27)
[2022-02-01] MEDS: Gabapentin 300 MG Capsule PO (10:27)
[2022-02-01] MEDS: oxyCODONE 5 MG Tablet PO (10:27)
[2022-02-01 11:06] VITALS: RESP 16
== END 2022-02-01 11:42 | disposition home or self-care (01) ==
PROVIDERS: Emergency Provider Emergency Medicine; PCP Family Medicine; Visit Provider Emergency Medicine
DX: M47.22 Other spondylosis with radiculopathy, cervical region (principal); M54.31 Sciatica, right side; I10 Essential (primary) hypertension; M54.32 Sciatica, left side; Z79.899 Other long term (current) drug therapy; Z79.52 Long term (current) use of systemic steroids; Z87.891 Personal history of nicotine dependence
CPT/HCPCS: 72040; 99283

== ENCOUNTER → 2022-02-16 | Outpatient (CLI) | payer BC, SELFPAY ==
[2022-02-16 13:49] LABS: Erythrocyte Sedimentation Rate 12 mm/hr (0-30)
[2022-02-16 13:50] LABS: Absolute Lymphocyte Count 2.54 X10^3/uL (0.83-4.51); Basophil# 0.07 X10^3/uL; Basophil% 0.4 % (0-1); Eosinophils% 0.6 % (0-5); Hematocrit 41.4 % (37-47); Hemoglobin 13.7 g/dL (12.0-15.0); Lymphocyte # 2.54 X10^3/ul (0.83-4.51); Mean Corp Hgb Conc 33.1 g/dL (32-36); Mean Corpuscular Hgb 31.3 pg (27.0-32.0); Mean Corpuscular Volume 94.5 fL (81-99); Mean Platelet Vol. 9.7 fl (6.2-12.0); Monocyte# 1.15 X10^3/uL; Monocyte% 6.8 % (0-10); NRBC Flagged by Analyzer 0 % (0-5); Neutrophil # 13.01 X10^3/uL (2.7-7.7); Neutrophil % 76.7 % (47-70); Platelet Count 318 K/mm3 (150-450); RBC Distribution Width CV 12.7 % (11.6-14.6); RBC Distribution Width SD 44.1 fl (35.1-43.9); Red Blood Count 4.38 M/mm3 (4.2-5.4)
[2022-02-16 14:04] LABS: AST(SGOT) 13 U/L (15-37); Alanine Aminotransfer ALT/SGPT 22 U/L (13-56); Albumin, Serum 3.6 g/dL (3.2-5.0); Alkaline Phosphatase 73 U/L (45-117); Anion Gap 8 (5-15); BUN 20 mg/dL (7-18); BUN/Creat Ratio 26.2 RATIO (10-20); Calcium,Total 9.7 mg/dL (8.5-10.1); Chloride 103 mmol/L (98-107); Creatinine, Serum 0.76 mg/dL (0.55-1.02); EST Glomerular Filtration Rate 83 mL/min (>60); Est Glom Filt Rate - Afr Amer 100 mL/min (>60); Globulin 3.7 g/dL (2.2-4.2); Glucose 176 mg/dL (74-106); Protein, Total 7.3 g/dL (6.4-8.2); Sodium Level 138 mmol/L (136-145)
== END | disposition home or self-care (01) ==
LOC: LAB 12:59
PROVIDERS: PCP Family Medicine; Referring Provider Family Medicine; Visit Provider Family Medicine
DX: M79.10 Myalgia, unspecified site (principal); M25.50 Pain in unspecified joint
CPT/HCPCS: 36415; 80053; 85025; 85652; 86140

== ENCOUNTER → 2022-03-03 | Outpatient (CLI) | payer BC, SELFPAY ==
--- NOTE | 2022-03-03 08:30 | MRI_ITS ---
HISTORY: CERVICAL RADICULOPATHY. Neck tightness, bilateral hand decreased ROM. TECHNIQUE: Multiplanar and multisequence MR images of the cervical spine were obtained without contrast. 261 images. COMPARISON: XR 02/01/2022. FINDINGS: VERTEBRAE: Vertebral body heights maintained. Mild degenerative endplate changes at C5-6 and C6-7. No significant bone marrow signal abnormality. VERTEBRAL ALIGNMENT: No anterior or posterior subluxation. Straightening of the cervical lordosis. SPINAL CORD: Cervical cord signal and morphology within normal limits. SOFT TISSUES: No prevertebral fluid collection. INTERVERTEBRAL DISCS: C2-3, C3-4: No significant posterior disc protrusion, central canal stenosis, or foraminal narrowing. C4-5: Mild right paracentral disc protrusion resulting in mild central canal stenosis and right foraminal narrowing. C5-6: No significant posterior disc protrusion, central canal stenosis, or foraminal narrowing. Left perineural cyst noted. C6-7: Mild disc bulge with minimal narrowing of the thecal sac and no significant foraminal narrowing. C7-T1: No significant posterior disc protrusion, central canal stenosis, or foraminal narrowing. MRI/Spine Cervical (Routine) IMPRESSION: Mild right paracentral disc protrusion of C4-5 resulting in mild central canal stenosis and right foraminal narrowing. Mild disc bulge of C6-7 without significant spinal canal stenosis. Electronically Signed: Kiki Zhu MD at 15:31 EDT ,
== END | disposition home or self-care (01) ==
PROVIDERS: PCP Family Medicine; Referring Provider Family Medicine; Visit Provider Family Medicine
DX: M54.12 Radiculopathy, cervical region (principal)
CPT/HCPCS: 72141

== ENCOUNTER → 2022-03-13 | Outpatient (CLI) | payer BC, SELFPAY ==
[2022-03-13 15:27] LABS: Absolute Lymphocyte Count 1.24 X10^3/uL (0.83-4.51); Absolute Neutrophil Count 9.8 X10^3/uL (2.0-7.7); Basophil# 0.04 X10^3/uL; Basophil% 0.3 % (0-1); Eosinophil# 0.01 X10^3/uL; Eosinophils% 0.1 % (0-5); Hematocrit 41.6 % (37-47); Lymphocyte # 1.24 X10^3/ul (0.83-4.51); Lymphocyte % 10.8 % (19-41); Mean Corp Hgb Conc 33.7 g/dL (32-36); Mean Corpuscular Hgb 31.8 pg (27.0-32.0); Mean Corpuscular Volume 94.5 fL (81-99); Mean Platelet Vol. 9.8 fl (6.2-12.0); Monocyte# 0.42 X10^3/uL; Monocyte% 3.6 % (0-10); NRBC Flagged by Analyzer 0 % (0-5); Neutrophil # 9.77 X10^3/uL (2.7-7.7); Neutrophil % 84.9 % (47-70); Platelet Count 325 K/mm3 (150-450); RBC Distribution Width CV 13.4 % (11.6-14.6); White Blood Count 11.5 K/mm3 (4.4-11.0)
[2022-03-13 16:22] LABS: ALB/GLOB Ratio 1.1 RATIO (0.9-2.4); AST(SGOT) 20 U/L (15-37); Alanine Aminotransfer ALT/SGPT 29 U/L (13-56); Albumin, Serum 4.1 g/dL (3.2-5.0); Alkaline Phosphatase 67 U/L (45-117); Anion Gap 7 (5-15); BUN 20 mg/dL (7-18); BUN/Creat Ratio 29.3 RATIO (10-20); Calcium,Total 10.1 mg/dL (8.5-10.1); Chloride 105 mmol/L (98-107); Creatinine, Serum 0.68 mg/dL (0.55-1.02); EST Glomerular Filtration Rate 94 mL/min (>60); Est Glom Filt Rate - Afr Amer 114 mL/min (>60); Globulin 3.8 g/dL (2.2-4.2); Glucose 109 mg/dL (74-106); Potassium 4.1 mmol/L (3.5-5.1); Protein, Total 7.9 g/dL (6.4-8.2); Rheumatoid Factor < 10.0 IU/mL (<15); Sodium Level 139 mmol/L (136-145)
[2022-03-14 08:47] LABS: Hepatitis B Surface Antibody Reactive; Hepatitis B Surface Antigen Non-Reactive (Nonreactive); Hepatitis C Antibody Non-Reactive (Nonreactive)
[2022-03-16 15:40] LABS: ANTINUCLEAR ANTIBODIES DIRECT Negative (Negative)
[2022-03-17 09:43] LABS: CCP IgG Antibodies 2 units (0-19)
== END | disposition home or self-care (01) ==
PROVIDERS: PCP Family Medicine; Referring Provider Internal Medicine Rheumatology; Visit Provider Internal Medicine Rheumatology
DX: M06.4 Inflammatory polyarthropathy (principal); I10 Essential (primary) hypertension; E78.5 Hyperlipidemia, unspecified
CPT/HCPCS: 36415; 80053; 85025; 86038; 86200; 86431; 86706; 86803; 87340

== ENCOUNTER → 2022-05-25 | Outpatient (CLI) | payer BC, SELFPAY ==
[2022-05-25 10:10] LABS: Absolute Lymphocyte Count 2.98 X10^3/uL (0.83-4.51); Absolute Neutrophil Count 3.4 X10^3/uL (2.0-7.7); Basophil# 0.04 X10^3/uL; Basophil% 0.6 % (0-1); Eosinophils% 1.4 % (0-5); Hemoglobin 13.3 g/dL (12.0-15.0); Lymphocyte # 2.98 X10^3/ul (0.83-4.51); Lymphocyte % 41.6 % (19-41); Mean Corp Hgb Conc 32.4 g/dL (32-36); Mean Corpuscular Hgb 32.1 pg (27.0-32.0); Mean Platelet Vol. 10.3 fl (6.2-12.0); Monocyte# 0.67 X10^3/uL; Monocyte% 9.3 % (0-10); NRBC Flagged by Analyzer 0 % (0-5); Neutrophil # 3.35 X10^3/uL (2.7-7.7); Neutrophil % 46.7 % (47-70); Platelet Count 241 K/mm3 (150-450); RBC Distribution Width CV 14.2 % (11.6-14.6); RBC Distribution Width SD 50.2 fl (35.1-43.9); Red Blood Count 4.14 M/mm3 (4.2-5.4); White Blood Count 7.2 K/mm3 (4.4-11.0)
[2022-05-25 10:24] LABS: ALB/GLOB Ratio 1.2 RATIO (0.9-2.4); AST(SGOT) 16 U/L (15-37); Alanine Aminotransfer ALT/SGPT 29 U/L (13-56); Albumin, Serum 3.5 g/dL (3.2-5.0); Alkaline Phosphatase 55 U/L (45-117); Anion Gap 7 (5-15); BUN 22 mg/dL (7-18); BUN/Creat Ratio 30.5 RATIO (10-20); Calcium,Total 8.5 mg/dL (8.5-10.1); Chloride 108 mmol/L (98-107); Creatinine, Serum 0.72 mg/dL (0.55-1.02); EST Glomerular Filtration Rate 88 mL/min (>60); Est Glom Filt Rate - Afr Amer 107 mL/min (>60); Globulin 2.9 g/dL (2.2-4.2); Glucose 80 mg/dL (74-106); Potassium 3.7 mmol/L (3.5-5.1); Protein, Total 6.4 g/dL (6.4-8.2); Sodium Level 143 mmol/L (136-145)
== END | disposition home or self-care (01) ==
LOC: MTLAB 08:06
PROVIDERS: PCP Family Medicine; Referring Provider Internal Medicine Rheumatology; Visit Provider Internal Medicine Rheumatology
DX: M06.4 Inflammatory polyarthropathy (principal); Z79.899 Other long term (current) drug therapy
CPT/HCPCS: 36415; 80053; 85025

== ENCOUNTER → 2023-01-29 | Outpatient (CLI) | payer BC, SELFPAY ==
--- NOTE | 2023-01-29 15:44 | BI_ITS ---
MAMMOGRAPHY - BILATERAL SCREENING REASON FOR EXAM: Female, 57 years old. Routine annual screening examination. PERTINENT HISTORY: Grandmother with breast cancer. History of prior left ultrasound-guided breast biopsy. TECHNIQUE: Digital bilateral breast jasvir (3D mammographic acquisition) in the CC and MLO projections. 2-D mediolateral oblique (MLO) and craniocaudad (CC) views of both breasts were obtained. CAD: Full Field Digital Mammography with Computer Added Detection was performed. COMPARISON: Comparison is made with prior study May 06, 2019 March 12, 2018. FINDINGS: Breast Composition: There are scattered areas of fibroglandular density. There are no dominant masses or suspicious calcifications. A tissue clip marker is once again seen in a tiny nodular density in the superior slightly lateral retroareolar region of the left breast. Stable small benign-appearing bilateral axillary lymph nodes. No other significant abnormalities are identified. There has been no significant change since the prior study. BI/SCRN MAMM (CAD)W/JASVIR BILAT IMPRESSION: Stable bilateral screening mammogram. Yearly follow-up mammogram recommended. (A) ASSESSMENT CATEGORY: BIRADS Category 2: Benign. A letter regarding these results will be sent to the patient by the facility within 30 days. Approximately 10% of breast cancers are not detected by mammography. A normal mammogram should not delay biopsy of a clinically suspicious abnormality. [id number] Electronically Signed: Yuri Rodrigues MD at 8:54 EDT ,
== END | disposition home or self-care (01) ==
PROVIDERS: PCP Family Medicine; Referring Provider Family Medicine; Visit Provider Family Medicine
DX: Z12.31 Encounter for screening mammogram for malignant neoplasm of breast (principal); Z80.3 Family history of malignant neoplasm of breast
CPT/HCPCS: 77063; 77067

== ENCOUNTER → 2024-12-21 | Outpatient (CLI) | payer BC, SELFPAY ==
--- NOTE | 2024-12-21 17:00 | MRI_ITS ---
PROCEDURE: LOWER EXT JOINT ONLY (ROUTINE) 12/21/2024 REASON FOR EXAM: TEAR OF MEDIAL MENISCUS TECHNIQUE: LOWER EXT JOINT ONLY (ROUTINE) Multiplanar and multisequence images were obtained without IV contrast administration. Axial and sagittal T1 and T2 weighted images were obtained. Fat suppressed images were also obtained. COMPARISON: None. FINDINGS: Moderate tricompartmental changes of degenerative joint disease. Minimal multifocal degenerative reactive periarticular bone marrow edema. Meniscal degeneration. Radial tear in the posterior horn of the medial meniscus reaching the tibial articular surface contour. Multiseptated parameniscal cyst is noted adjacent to the anterior horn of the medial meniscus measuring 3.7 x 2.8 cm. Uncomplicated Ribeiro's cyst measuring 3.7 x 3.8 cm. Surgical changes of the articular surface contour of the patella with unremarkable metallic hardware. Mild adjacent multifocal degenerative reactive bone marrow edema of the patella. Prepatellar/infrapatellar bursitis. Mild suprapatellar knee joint effusion. Moderate tendinosis of the patellar insertional fibers of the quadriceps tendon. The remaining visualized osseous elements are intact with no evidence of fracture or dislocation. The anterior and posterior cruciate ligaments are intact and demonstrate no signal abnormality. The medial and lateral collateral ligaments and ligamentous complex are intact. The patellar retinaculum and remaining quadriceps tendon complex and the patellar tendon are intact with no evidence of signal abnormality. The remaining osseous structures demonstrate normal marrow signal characteristics. MRI/Lower Ext Joint Only (Routine) IMPRESSION: Moderate tricompartmental changes of degenerative joint disease. Minimal multifocal degenerative reactive periarticular bone marrow edema. Meniscal degeneration. Radial tear in the posterior horn of the medial meniscus reaching the tibial ar ticular surface contour. Multiseptated parameniscal cyst is noted adjacent to the anterior horn of the m edial meniscus measuring 3.7 x 2.8 cm. Uncomplicated Ribeiro's cyst measuring 3.7 x 3.8 cm. Surgical changes of the articular surface contour of the patella with unremarka ble metallic hardware. Mild adjacent multifocal degenerative reactive bone marrow edema of the patella. Prepatellar/infrapatellar bursitis. Mild suprapatellar knee joint effusion. Moderate tendinosis of the patellar insertional fibers of the quadriceps tendon . Reading Location: [facility]
== END | disposition home or self-care (01) ==
LOC: MRI 17:04
PROVIDERS: PCP Family Medicine; Referring Provider Orthopaedic Surgery; Visit Provider Orthopaedic Surgery
DX: S83.242A Other tear of medial meniscus, current injury, left knee, initial encounter (principal)
CPT/HCPCS: 73721

== ENCOUNTER → 2025-04-30 | Outpatient (CLI) | payer BC, SELFPAY ==
--- NOTE | 2025-04-30 15:13 | BI_ITS ---
EXAM: SCRN MAMM (CAD)W/JASVIR BILAT DATE: 04/30/2025 CLINICAL HISTORY: F, Age 59 y/o , SCREENING Patient's grandmother was diagnosed with breast cancer. Patient has a history of a prior left breast biopsy which was benign. TECHNIQUE: Procedure Code: [id number] Modality: MG Procedure: SCRN MAMM (CAD)W/JASVIR BILAT COMPARISON: Prior exam(s) dated 01/29/2023, 05/06/2019, and 03/12/2018. FINDINGS: TISSUE DENSITY: There are scattered areas of fibroglandular density. Bilateral Breast Mammographic Findings: There are no suspicious masses, suspicious cluster of microcalcifications, architectural distortion or secondary signs of malignancy identified in either breast. Stable benign-appearing intramammary lymph nodes are seen in the superior outer aspect of both breasts. Benign-appearing macrocalcifications and round microcalcifications are seen in both breasts. There is a radiopaque clip seen in the left breast. The biopsy was benign. Post biopsy site is stable. BI/SCRN MAMM (CAD)W/JASVIR BILAT IMPRESSION: Benign screening mammogram. OVERALL FINAL ASSESSMENT BI-RADS 2: BENIGN RECOMMENDATION: Routine annual follow-up in 1 Year Additional Recommendation none A letter with findings and recommendations will be mailed to the patient. Reading Location: [id number]
--- OUTSIDE RECORDS SUMMARY | 2025-04-30 15:35 | XMS RPT_ITS | CCD ---
Author Organization [facility] Care Team Providers Care Supervisor Coin Machine Name Role Phone Dr. Leah Callejas Primary Care Provider Dr. Leah Callejas Referring Provider [phone] CYNTHIA Gabriel Attending Provider Dr. Leah Callejas DO Primary Care Provider [phone] Kp BOOGIE, Dr. Obdulia Iraheta Attending Provider Kp BOOGIE, Dr. Obdulia Iraheta Referring Provider Leah Callejas Primary Care Unavailable Obdulia Talbert Referring Unavailab le Obdulia Talbert Attending Unavailab juan carlos Allergies Allergy Classification Reported Allergen(s) Allergy Type Date of Onset Reaction(s) Facility (5 sources) Sulfonamides (Antibiotic) Allergy to substance 1 Unknown [facility] (1 source) Sulfonamides (Antibiotic) Drug allergy (disorder) 4 [facility] Repository Medications Current Medications Medication Drug Class(es) Dates Sig (Normalized) Sig (Original) amoxicillin 500 mg oral tablet (2 sources) Penicillin-class Antibacterial Start: 09-02-2023 take 1 tablet by mouth three times daily Amoxicillin 500 mg tablet Active 500 mg PO THREE TIMES A DAY 30 0 September 02, 2023 12:00am busPIRone hydrochloride 5 mg oral tablet (2 sources) Start: 08-18-2020 take 10 mg by mouth at bedtime Buspirone Active 10 MG PO AT BEDTIME August 18, 2020 10:04am cetirizine hydrochloride 10 mg oral capsule (6 sources) Histamine-1 Receptor Antagonist Start: 06-25-2016 take 1 capsule by mouth once daily Cetirizine 10 MG capsule Active 10 mg PO DAILY June 25, 2016 1:00am citalopram 10 mg oral tablet (12 sources) Serotonin Reuptake Inhibitor Start: 08-25-2017 take 4 tablets by mouth at bedtime Citalopram (Celexa) 10 mg tablet Active 40 mg PO AT BEDTIME August 25, 2017 12:00am Start: 06-25-2016 End: 08-25-2017 take 1 tablet by mouth at bedtime Citalopram 20 MG tablet Discontinued 20 mg PO AT BEDTIME June 25, 2016 1:00am August 25, 2017 11:32am cyclobenzaprine hydrochloride 5 mg oral tablet (6 sources) Muscle Relaxant Start: 08-25-2017 take 1 tablet by mouth every eight hours as needed for muscle spasms Cyclobenzaprine 5 mg tablet Active 5 mg PO EVERY 8 HOURS NEEDED as needed for Muscle Spasm August 25, 2017 12:00am doxepin hydrochloride 25 mg oral capsule (2 sources) Tricyclic Antidepressant Start: 08-18-2020 take 50 mg by mouth at bedtime Doxepin Active 50 MG PO AT BEDTIME August 18, 2020 10:04am gabapentin 300 mg oral capsule (4 sources) Anti-epileptic Agent Start: 02-01-2022 Gabapentin 300 mg capsule Active 300 mg PO THREE TIMES A DAY 0 February 01, 2022 12:00am On first day, take 1 capsule po BID lisinopril 20 mg oral tablet (6 sources) Angiotensin Converting Enzyme Inhibitor Start: 09-09-2017 take 1 tablet by mouth once daily Lisinopril 20 MG tablet Active 20 mg PO DAILY September 09, 2017 12:00am nabumetone 750 mg oral tablet (12 sources) Nonsteroidal Anti-inflammatory Drug Start: 03-26-2018 take 1 tablet by mouth once daily Nabumetone 750 mg tablet Active 750 mg PO DAILY March 26, 2018 1:00am Start: 06-25-2016 End: 08-25-2017 take 1 tablet by mouth once daily Nabumetone 750 MG tablet Discontinued 1500 mg PO DAILY June 25, 2016 1:00am August 25, 2017 11:31am Start: 06-25-2016 End: 08-25-2017 take 1500 mg by mouth once daily Nabumetone Discontinued 1500 MG PO DAILY June 25, 2016 1:00am August 25, 2017 11:31am predniSONE 10 mg oral tablet (4 sources) Start: 02-01-2022 take 4 tablets by mouth once daily, then take 3 tablets by mouth once daily, then take 2 tablets by mouth once daily, then take 1 tablet by mouth once daily Prednisone 10 mg tablet Active 10 mg PO DIRECTED February 01, 2022 12:00am Take 4 tablets daily for 3 days, then 3 daily for 3 days, then 2 daily for 3 days, then 1 a day for 3 days traMADol hydrochloride 50 mg oral tablet (14 sources) Opioid Agonist Start: 08-18-2020 take 50 mg by mouth every six hours as needed Tramadol Active 50 MG PO EVERY 6 HOURS NEEDED August 18, 2020 10:04am Start: 09-09-2017 End: 05-15-2018 take 1 tablet by mouth every six hours as needed for pain Tramadol 50 MG tablet Discontinued 50 mg PO EVERY 6 HOURS NEEDED as needed for Pain September 09, 2017 12:00am May 15, 2018 2:43pm Start: 06-25-2016 End: 08-25-2017 take 1 tablet by mouth every six hours as needed for pain Tramadol 50 MG tablet Discontinued 50 mg PO EVERY 6 HOURS NEEDED as needed for Pain June 25, 2016 1:00am August 25, 2017 11:31am Completed/Discontinued Medications Medication Drug Class(es) Dates Sig (Normalized) Sig (Original) amoxicillin 875 mg / clavulanate 125 mg oral tablet (2 sources) Penicillin-class Antibacterial Start: 01-26-2023 End: 02-05-2023 Amoxicillin-Pot Clavulanate 875-125 mg tablet Discontinued 1 {tbl} PO Q12H 20 10 January 26, 2023 12:00am February 04, 2023 12:00am February 05, 2023 12:04am Acute sinusitis, unspecified Start: 01-26-2023 End: 02-05-2023 take 1 tablet by mouth every twelve hours Amoxicillin-Pot Clavulanate Discontinued 1 TABLET PO Q12H 20 January 26, 2023 12:00am February 05, 2023 12:04am diphenhydrAMINE hydrochloride 25 mg oral capsule (12 sources) Histamine-1 Receptor Antagonist Start: 09-09-2017 End: 05-15-2018 take 2 capsules by mouth at bedtime as needed for sleep Diphenhydramine Hcl 25 MG capsule Discontinued 50 mg PO AT BEDTIME NEEDED as needed for Sleep September 09, 2017 12:00am May 15, 2018 2:43pm Start: 09-09-2017 End: 05-15-2018 take 50 mg by mouth at bedtime as needed Diphenhydramine Hcl Discontinued 50 MG PO AT BEDTIME NEEDED September 09, 2017 12:00am May 15, 2018 2:43pm Start: 06-25-2016 End: 08-25-2017 Diphenhydramine Hcl 25 MG ca psule Discontinued 250 mg PO AT BEDTIME June 25, 2016 1:00am August 25, 2017 11:31am Start: 06-25-2016 End: 08-25-2017 take 250 mg by mouth at bedtime Diphenhydramine Hcl Discontinued 250 MG PO AT BEDTIME June 25, 2016 1:00am August 25, 2017 11:31am Tumaric (6 sources) Start: 09-09-2017 End: 05-15-2018 take 1 tablet by mouth once daily Tumaric Discontinued 1 TABLET PO DAILY September 09, 2017 9:30am May 15, 2018 2:43pm Start: 09-09-2017 End: 05-15-2018 Tumaric Discontinued 1 {tbl} PO DAILY September 09, 2017 12:00am May 15, 2018 2:43pm Start: 09-09-2017 End: 05-15-2018 take 1 tablet by mouth once daily Tumaric Discontinued 1 TABLET PO DAILY September 08, 2017 11:00pm May 15, 2018 1:43pm Start: 09-09-2017 End: 05-15-2018 take 1 tablet by mouth once daily Tumaric Discontinued 1 TABLET PO DAILY September 09, 2017 12:00am May 15, 2018 2:43pm Problems Problem Classification Problem Date Documented Date Episodic/Chronic Allergic reactions (6 sources) Environmental allergy; Translations: [Other allergy status, other than to drugs and biological substances] 08-29-2020 Episodic Chronic obstructive pulmonary disease and bronchiectasis (6 sources) Bronchitis; Translations: [Bronchitis, not specified as acute or chronic] 08-29-2020 Episodic E Codes: Fall (6 sources) Fall; Translations: [Unspecified fall, initial encounter] 09-09-2017 Episodic Essential hypertension (6 sources) Essential hypertension; Translations: [Essential (primary) hypertension] 08-29-2020 Chronic Joint disorders and dislocations; trauma-related (1 source) Other tear of medial meniscus, current injury, left knee, initial encounter; Translations: [Other tear of medial meniscus, current injury, left knee, initial encounter] Onset: 12-29-2024 Episodic Nonspecific chest pain (6 sources) Chest pain; Translations: [Chest pain, unspecified] 08-29-2020 Episodic Other upper respiratory infections (7 sources) Sinusitis; Translations: [Chronic sinusitis, unspecified] 08-29-2020 Chronic Spondylosis; intervertebral disc disorders; other back problems (8 sources) Bilateral sciatica; Translations: [Sciatica, right side] 02-09-2022 Episodic Sprains and strains (12 sources) Injury of wrist; Translations: [Unspecified sprain of unspecified wrist, initial encounter] 09-09-2017 Episodic Results Test Name Value Interpretation Reference Range Facil ity Magnetic resonance imaging r eportOrdered By: Daniel Duron on 12-22-2024 Study report [facility] Imaging Services [address] [place] [address] Lower Ext Joint Only (Routine) MR#: [id number] Acct: [id number] Name: JIMMIE ALY Rep #: [id number] : 1965 F 59 From: Eda Duron MD PCP: Dr. Leah Callejas, Status: REG CLI Study:Lower Ext Joint Only (Routine) Date of Exam: 12/21/24 Exam# [id number] Ordering Dr: OBDULIA BERRIOS PROCEDURE: LOWER EXT JOINT ONLY (ROUTINE) 12/21/2024 REASON FOR EXAM: TEAR OF MEDIAL MENISCUS TECHNIQUE: LOWER EXT JOINT ONLY (ROUTINE) Multiplanar and multisequence images were obtained without IV contrast administration. Axial and sagittal T1 and T2 weighted images were obtained. Fat suppressed images were also obtained. COMPARISON: None. FINDINGS: Moderate tricompartmental changes of degenerative joint disease. Minimal multifocal degenerative reactive periarticular bone marrow edema. Meniscal degeneration. Radial tear in the posterior horn of the medial meniscus reaching the tibial articular surface contour. Multiseptated parameniscal cyst is noted adjacent to the anterior horn of the medial meniscus measuring 3.7 x 2.8 cm. Uncomplicated Ribeiro's cyst measuring 3.7 x 3.8 cm. Surgical changes of the articular surface contour of the patella with unremarkable metallic hardware. Mild adjacent multifocal degenerative reactive bone marrow edema of the patella. Prepatellar/infrapate llar bursitis. Mild suprapatellar knee joint effusion. Moderate tendinosis of the patellar insertional fibers of the quadriceps tendon. The remaining visualized osseous elements are intact with no evidence of fracture or dislocation. The anterior and posterior cruciate ligaments are intact and demonstrate no signal abnormality. The medial and lateral collateral ligaments and ligamentous complex are intact. The patellar retinaculum and remaining quadriceps tendon complex and the patellar tendon are intact with no evidence of signal abnormality. The remaining osseous structures demonstrate normal marrow signal characteristics. MRI/Lower Ext Joint Only (Routine) IMPRESSION: Moderate tricompartmental changes of degenerative joint disease. Minimal multifocal degenerative reactive periarticular bone marrow edema. Meniscal degeneration. Radial tear in the posterior horn of the medial meniscus reaching the tibial articular surface contour. Multiseptated parameniscal cyst is noted adjacent to the anterior horn of the medial meniscus measuring 3.7 x 2.8 cm. Uncomplicated Ribeiro's cyst measuring 3.7 x 3.8 cm. Surgical changes of the articular surface contour of the patella with unremarkable metallic hardware. Mild adjacent multifocal degenerative reactive bone marrow edema of the patella. Prepatellar/infrapate llar bursitis. Mild suprapatellar knee joint effusion. Moderate tendinosis of the patellar insertional fibers of the quadriceps tendon. Reading Location: [place] [address] CC: Dr. Leah Callejas DO; OBDULIA TALBERT ~ Web Production Designer: Signed [facility] Lower Ext Joint Only (Routin e)on 12-21-2024 Lower Ext Joint Only (Routine) [facility] Imaging Services [address] [place] [id number] Lower Ext Joint Only (Routine) MR#: [id number] Acct: [id number] Name: JIMMIE ALY Rep #: [id number] : 1965 F 59 From: Daniel walters MD PCP: Dr. Leah Callejas DO Status: REG CLI Study: Lower Ext Joint Only (Routine) Date of Exam: 0 12/21/24 Exam# [id number] Ordering Dr: SARAH FREIRE PROCEDURE: LOWER EXT JOINT ONLY (ROUTINE) 12/21/2024 REASON FOR EXAM: TEAR OF MEDIAL MENISCUS TECHNIQUE: LOWER EXT JOINT ONLY (ROUTINE) Multiplanar and multisequence images were obtained without IV contrast administration. Axial and sagittal T1 and T2 weighted images were obtained. Fat suppressed images were also obtained. COMPARISON: None. FINDINGS: Moderate tricompartmental changes of degenerative joint disease. Minimal multifocal degenerative reactive periarticular bone marrow edema. Meniscal degeneration. Radial tear in the posterior horn of the medial meniscus reaching the tibial articular surface contour. Multiseptated parameniscal cyst is noted adjacent to the anterior horn of the medial meniscus measuring 3.7 x 2.8 cm. Uncomplicated Ribeiro's cyst measuring 3.7 x 3.8 cm. Surgical changes of the articular surface contour of the patella with unremarkable metallic hardware. Mild adjacent multifocal degenerative reactive bone marrow edema of the patella. Prepatellar/infrapate llar bursitis. Mild suprapatellar knee joint effusion. Moderate tendinosis of the patellar insertional fibers of the quadriceps tendon. The remaining visualized osseous elements are intact with no evidence of fracture or dislocation. The anterior and posterior cruciate ligaments are intact and demonstrate no signal abnormality. The medial and lateral collateral ligaments and ligamentous complex are intact. The patellar retinaculum and remaining quadriceps tendon complex and the patellar tendon are intact with no evidence of signal abnormality. The remaining osseous structures demonstrate normal marrow signal characteristics. MRI/Lower Ext Joint Only (Routine) IMPRESSION: Moderate tricompartmental changes of degenerative joint disease. Minimal multifocal degenerative reactive periarticular bone marrow edema. Meniscal degeneration. Radial tear in the posterior horn of the medial meniscus reaching the tibial articular surface contour. Multiseptated parameniscal cyst is noted adjacent to the anterior horn of the medial meniscus measuring 3.7 x 2.8 cm. Uncomplicated Ribeiro's cyst measuring 3.7 x 3.8 cm. Surgical changes of the articular surface contour of the patella with unremarkable metallic hardware. Mild adjacent multifocal degenerative reactive bone marrow edema of the patella. Prepatellar/infrapate llar bursitis. Mild suprapatellar knee joint effusion. Moderate tendinosis of the patellar insertional fibers of the quadriceps tendon. Reading Location: [place] [address] CC: Dr. Leah Callejas DO; OBDULIA TALBERT Web Production Designer: Signed Normal [facility] Absolute lymphocyte countOrd ered By: Dr. Ortiz on 05-25-2022 Lymphocytes Auto (Unsp spec) [#/Vol] 2.98 10*3/uL 0.83-4.51 [facility] Basophil percentageOrdered B y: Dr. Ortiz on 05-25-2022 Basophils/100 WBC (Bld) 0.6 % 0-1 [facility] Bilirubin [Mass/Vol] 0.20 mg/dL 0.20-1.00 [facility] Comment on above: For patients on eltr ombopag therapy, use of Dimension [place] TBIL is not recommended. Chloride [Moles/Vol] 108 mmol/L 98-107 [facility] Eosinophils/100 WBC (Bld) 1.4 % 0-5 [facility] Glucose [Mass/Vol] 80 mg/dL 74-106 [facility] Neutrophils (Bld) [#/Vol] 3.4 10*3/uL 2.0-7.7 [facility] Neutrophils/100 WBC (Bld) 46.7 % 47-70 [facility] Potassium [Moles/Vol] 3.7 mmol/L 3.5-5.1 [facility] Protein [Mass/Vol] 6.4 g/dL 6.4-8.2 [facility] Sodium [Moles/Vol] 143 mmol/L 136-145 [facility] WBC (Bld) [#/Vol] 7.2 10*3/uL 4.4-11.0 [facility] Blood erythrocytes count (nu mber/volume)Ordered By: Dr. Ortiz on 05-25-2022 RBC (Bld) [#/Vol] 4.14 10*6/uL 4.2-5.4 [facility] Blood hemoglobin measurement (mass/volume)Ordered By: Dr. Ortiz on 05-25-2022 Hemoglobin (Bld) [Mass/Vol] 13.3 g/dL 12.0-15.0 [facility] Blood lymphocytes/100 leukoc ytesOrdered By: Dr. Ortiz on 05-25-2022 Lymphocytes/100 WBC (Bld) 41.6 % 19-41 [facility] Blood monocytes/100 leukocyt esOrdered By: Dr. Ortiz on 05-25-2022 Monocytes/100 WBC (Bld) 9.3 % 0-10 [facility] Blood platelet mean volumeOr dered By: Dr. Ortiz on 05-25-2022 Platelet mean volume (Bld) [Entitic vol] 10.3 fL 6.2-12.0 [facility] Determination of erythrocyte mean corpuscular volume (MCV)Ordered By: Dr. Ortiz on 05-25-2022 MCV (RBC) [Entitic vol] 99.0 fL 81-99 [facility] Hematocrit Auto (Bld) [Volum e fraction]Ordered By: Dr. Ortiz on 05-25-2022 Hematocrit (Bld) [Volume fraction] 41.0 % 37-47 [facility] Laboratory - Chemistry and C hemistry - challengeOrdered By: Dr. Ortiz on 05-25-2022 ALP [Catalytic activity/Vol] 55 U/L 45-117 [facility] ALT [Catalytic activity/Vol] 29 U/L 13-56 [facility] CO2 [Moles/Vol] 28.0 mmol/L 21.0-32.0 [facility] Globulin (S) [Mass/Vol] 2.9 g/dL 2.2-4.2 [facility] Urea nitrogen/Creatinine [Mass ratio] 30.5 mg/mg 10-20 [facility] Laboratory - Hematology and Cell countsOrdered By: Dr. Ortiz on 05-25-2022 Erythrocyte distribution width (RBC) [Entitic vol] 50.2 fL 35.1-43.9 [facility] Erythrocyte distribution width (RBC) [Ratio] 14.2 % 11.6-14.6 [facility] Immature granulocytes/100 WBC (Bld) 0.400 % 0.0-0.9 [facility] Comment on above: IG% - Immature Granu locytes (promyelocytes, myelocytes and metamyelocytes) > 1% indicates that a LEFT SHIFT is Present. MCH (RBC) [Entitic mass] 32.1 pg 27.0-32.0 [facility] Nucleated RBC/100 WBC (Bld) [Ratio] 0 % 0-5 [facility] MCHC Auto (RBC) [Mass/Vol]Or dered By: Dr. Ortiz on 05-25-2022 MCHC (RBC) [Mass/Vol] 32.4 g/dL 32-36 [facility] No Panel InformationOrdered By: Dr. Ortiz on 05-25-2022 Estimated GFR (MDRD) Amer 107 mL/min >60 [facility] Comment on above: GFR Calc Estimated GFR (MDRD) Non-Af Amer 88 mL/min >60 [facility] Comment on above: Non- GFR Calc Platelets bldOrdered By: Dr. Ortiz on 05-25-2022 Platelets (Bld) [#/Vol] 241 10*3/uL 150-450 [facility] Serum or plasma albumin lissette urement (mass/volume)Ordered By: Dr. Ortiz on 05-25-2022 Albumin [Mass/Vol] 3.5 g/dL 3.2-5.0 [facility] Serum or plasma albumin/glob ulin mass ratioOrdered By: Dr. Ortiz on 05-25-2022 Albumin/Globulin [Mass ratio] 1.2 {ratio} 0.9-2.4 [facility] Serum or plasma calcium lissette urement (mass/volume)Ordered By: Dr. Ortiz on 05-25-2022 Calcium [Mass/Vol] 8.5 mg/dL 8.5-10.1 [facility] Serum or plasma creatinine m easurement (mass/volume)Ordered By: Dr. Ortiz on 05-25-2022 Creatinine [Mass/Vol] 0.72 mg/dL 0.55-1.02 [facility] Comment on above: The validity of the calculated GFR & GFRAA in patients over 70 years has not been determined. Clinical correlation is essential. Serum or plasma urea nitroge n measurement (mass/volume)Ordered By: Dr. Ortiz on 05-25-2022 Urea nitrogen [Mass/Vol] 22 mg/dL 7-18 [facility] Thin prep Papanicolaou smear with manual screeningOrdered By: Dr. Ortiz on 05-25-2022 Thin prep Papanicolaou smear with manual screening 16 U/L 15-37 [facility] Thin prep Papanicolaou smear with manual screening 7 5-15 [facility] Absolute lymphocyte countOrd ered By: Dr. Ortiz on 03-13-2022 Lymphocytes Auto (Unsp spec) [#/Vol] 1.24 10*3/uL 0.83-4.51 [facility] Basophil percentageOrdered B y: Dr. Ortiz on 03-13-2022 Basophils/100 WBC (Bld) 0.3 % 0-1 [facility] Bilirubin [Mass/Vol] 0.60 mg/dL 0.20-1.00 [facility] Comment on above: For patients on eltr ombopag therapy, use of Dimension [place] TBIL is not recommended. Chloride [Moles/Vol] 105 mmol/L 98-107 [facility] Eosinophils/100 WBC (Bld) 0.1 % 0-5 [facility] Glucose [Mass/Vol] 109 mg/dL 74-106 [facility] Comment on above: Fasting Glucose resu lt from 100 to 125 mg/dL suggests IMPAIRED HOMEOSTASIS per A.D.A. criteria. Neutrophils (Bld) [#/Vol] 9.8 10*3/uL 2.0-7.7 [facility] Neutrophils/100 WBC (Bld) 84.9 % 47-70 [facility] Potassium [Moles/Vol] 4.1 mmol/L 3.5-5.1 [facility] Protein [Mass/Vol] 7.9 g/dL 6.4-8.2 [facility] Sodium [Moles/Vol] 139 mmol/L 136-145 [facility] WBC (Bld) [#/Vol] 11.5 10*3/uL 4.4-11.0 [facility] Blood erythrocytes count (nu mber/volume)Ordered By: Dr. Ortiz on 03-13-2022 RBC (Bld) [#/Vol] 4.40 10*6/uL 4.2-5.4 [facility] Blood hemoglobin measurement (mass/volume)Ordered By: Dr. Ortiz on 03-13-2022 Hemoglobin (Bld) [Mass/Vol] 14.0 g/dL 12.0-15.0 [facility] Blood lymphocytes/100 leukoc ytesOrdered By: Dr. Ortiz on 03-13-2022 Lymphocytes/100 WBC (Bld) 10.8 % 19-41 [facility] Blood monocytes/100 leukocyt esOrdered By: Dr. Ortiz on 03-13-2022 Monocytes/100 WBC (Bld) 3.6 % 0-10 [facility] Blood platelet mean volumeOr dered By: Dr. Ortiz on 03-13-2022 Platelet mean volume (Bld) [Entitic vol] 9.8 fL 6.2-12.0 [facility] Determination of erythrocyte mean corpuscular volume (MCV)Ordered By: Dr. Ortiz on 03-13-2022 MCV (RBC) [Entitic vol] 94.5 fL 81-99 [facility] Hematocrit Auto (Bld) [Volum e fraction]Ordered By: Dr. Ortiz on 03-13-2022 Hematocrit (Bld) [Volume fraction] 41.6 % 37-47 [facility] Laboratory - Chemistry and C hemistry - challengeOrdered By: Dr. Ortiz on 03-13-2022 ALP [Catalytic activity/Vol] 67 U/L 45-117 [facility] ALT [Catalytic activity/Vol] 29 U/L 13-56 [facility] CO2 [Moles/Vol] 27.0 mmol/L 21.0-32.0 [facility] Globulin (S) [Mass/Vol] 3.8 g/dL 2.2-4.2 [facility] Urea nitrogen/Creatinine [Mass ratio] 29.3 mg/mg 10-20 [facility] Laboratory - Hematology and Cell countsOrdered By: Dr. Ortiz on 03-13-2022 Erythrocyte distribution width (RBC) [Entitic vol] 47.0 fL 35.1-43.9 [facility] Erythrocyte distribution width (RBC) [Ratio] 13.4 % 11.6-14.6 [facility] Immature granulocytes/100 WBC (Bld) 0.300 % 0.0-0.9 [facility] Comment on above: IG% - Immature Granu locytes (promyelocytes, myelocytes and metamyelocytes) > 1% indicates that a LEFT SHIFT is Present. MCH (RBC) [Entitic mass] 31.8 pg 27.0-32.0 [facility] Nucleated RBC/100 WBC (Bld) [Ratio] 0 % 0-5 [facility] MCHC Auto (RBC) [Mass/Vol]Or dered By: Dr. Ortiz on 03-13-2022 MCHC (RBC) [Mass/Vol] 33.7 g/dL 32-36 [facility] No Panel InformationOrdered By: Dr. Ortiz on 03-13-2022 Anti-Nuclear Antibody Screen Negative Negative [facility] Comment on above: Performed at: [facility] [address] [id number] Director: Star Beckwith PhD, Phone: [phone] Estimated GFR (MDRD) Amer 114 mL/min >60 [facility] Comment on above: GFR Calc Estimated GFR (MDRD) Non-Af Amer 94 mL/min >60 [facility] Comment on above: Non- GFR Calc Hepatitis B Surface Antigen Non-Reactive Nonreactive [facility] Hepatitis C Antibody Non-Reactive Nonreactive [facility] Comment on above: Non Reactive: < 0.8 Equivocal: >/= 0.8 to < 1.0 Reactive: >/= 1.0The CDC recommends that a reactive/equivocal HCV antibody result be followed up by the HCV Nucleic Acid Amplificationtest ([id number]) Platelets bldOrdered By: Dr. Ortiz on 03-13-2022 Platelets (Bld) [#/Vol] 325 10*3/uL 150-450 [facility] Serum cyclic citrullinated p eptide IgG antibody assay (units/volume)Ordered By: Dr. Ortiz on 03-13-2022 Cyclic citrullinated peptide IgG Qn 2 units 0-19 [facility] Comment on above: Negative <20 Weak po sitive 20 - 39 Moderate positive 40 - 59 Strong positive >59Performed at: [facility] [id number] Director: Dennis Booth MD, Phone: [phone] Serum hepatitis B virus surf peter antibody IgG detectionOrdered By: Dr. Ortiz on 03-13-2022 HBV surface IgG Ql (S) Reactive [facility] Comment on above: Non Reactive: Incons istent with immunity less than <10 mIU/mL Reactive: Consistent with immunity greater than or equal to 10 mIU/mL Serum or plasma albumin lissette urement (mass/volume)Ordered By: Dr. Ortiz on 03-13-2022 Albumin [Mass/Vol] 4.1 g/dL 3.2-5.0 [facility] Serum or plasma albumin/glob ulin mass ratioOrdered By: Dr. Ortiz on 03-13-2022 Albumin/Globulin [Mass ratio] 1.1 {ratio} 0.9-2.4 [facility] Serum or plasma calcium lissette urement (mass/volume)Ordered By: Dr. Ortiz on 03-13-2022 Calcium [Mass/Vol] 10.1 mg/dL 8.5-10.1 [facility] Serum or plasma creatinine m easurement (mass/volume)Ordered By: Dr. Ortiz on 03-13-2022 Creatinine [Mass/Vol] 0.68 mg/dL 0.55-1.02 [facility] Comment on above: The validity of the calculated GFR & GFRAA in patients over 70 years has not been determined. Clinical correlation is essential. Serum or plasma urea nitroge n measurement (mass/volume)Ordered By: Dr. Ortiz on 03-13-2022 Urea nitrogen [Mass/Vol] 20 mg/dL 7-18 [facility] Serum rheumatoid factor dete ctionOrdered By: Dr. Ortiz on 03-13-2022 Rheumatoid factor Ql (S) < 10.0 IU/mL <15 [facility] Thin prep Papanicolaou smear with manual screeningOrdered By: Dr. Ortiz on 03-13-2022 Thin prep Papanicolaou smear with manual screening 20 U/L 15-37 [facility] Thin prep Papanicolaou smear with manual screening 7 5-15 [facility] Absolute lymphocyte countOrd ered By: Dr. Callejas on 02-16-2022 Lymphocytes Auto (Unsp spec) [#/Vol] 2.54 10*3/uL 0.83-4.51 [facility] Basophil percentageOrdered B y: Dr. Callejas on 02-16-2022 Basophils/100 WBC (Bld) 0.4 % 0-1 [facility] Bilirubin [Mass/Vol] 0.40 mg/dL 0.20-1.00 [facility] Comment on above: For patients on eltr ombopag therapy, use of Dimension [place] TBIL is not recommended. Chloride [Moles/Vol] 103 mmol/L 98-107 [facility] Eosinophils/100 WBC (Bld) 0.6 % 0-5 [facility] Glucose [Mass/Vol] 176 mg/dL 74-106 [facility] Comment on above: Fasting Glucose resu lt greater than or equal to 126 mg/dL suggests DIABETES MELLITUS per A.D.A. criteria. Neutrophils (Bld) [#/Vol] 13.0 10*3/uL 2.0-7.7 [facility] Neutrophils/100 WBC (Bld) 76.7 % 47-70 [facility] Potassium [Moles/Vol] 4.0 mmol/L 3.5-5.1 [facility] Protein [Mass/Vol] 7.3 g/dL 6.4-8.2 [facility] Sodium [Moles/Vol] 138 mmol/L 136-145 [facility] WBC (Bld) [#/Vol] 17.0 10*3/uL 4.4-11.0 [facility] Blood erythrocytes count (nu mber/volume)Ordered By: Dr. Callejas on 02-16-2022 RBC (Bld) [#/Vol] 4.38 10*6/uL 4.2-5.4 [facility] Blood hemoglobin measurement (mass/volume)Ordered By: Dr. Callejas on 02-16-2022 Hemoglobin (Bld) [Mass/Vol] 13.7 g/dL 12.0-15.0 [facility] Blood lymphocytes/100 leukoc ytesOrdered By: Dr. Callejas on 02-16-2022 Lymphocytes/100 WBC (Bld) 15.0 % 19-41 [facility] Blood monocytes/100 leukocyt esOrdered By: Dr. Callejas on 02-16-2022 Monocytes/100 WBC (Bld) 6.8 % 0-10 [facility] Blood platelet mean volumeOr dered By: Dr. Callejas on 02-16-2022 Platelet mean volume (Bld) [Entitic vol] 9.7 fL 6.2-12.0 [facility] Determination of erythrocyte mean corpuscular volume (MCV)Ordered By: Dr. Callejas on 02-16-2022 MCV (RBC) [Entitic vol] 94.5 fL 81-99 [facility] Erythrocyte sedimentation ra teOrdered By: Dr. Callejas on 02-16-2022 ESR (Bld) [Velocity] 12 mm/h 0-30 [facility] Hematocrit Auto (Bld) [Volum e fraction]Ordered By: Dr. Callejas on 02-16-2022 Hematocrit (Bld) [Volume fraction] 41.4 % 37-47 [facility] Laboratory - Chemistry and C hemistry - challengeOrdered By: Dr. Callejas on 02-16-2022 ALP [Catalytic activity/Vol] 73 U/L 45-117 [facility] ALT [Catalytic activity/Vol] 22 U/L 13-56 [facility] CO2 [Moles/Vol] 27.0 mmol/L 21.0-32.0 [facility] Globulin (S) [Mass/Vol] 3.7 g/dL 2.2-4.2 [facility] Urea nitrogen/Creatinine [Mass ratio] 26.2 mg/mg 10-20 [facility] Laboratory - Hematology and Cell countsOrdered By: Dr. Callejas on 02-16-2022 Erythrocyte distribution width (RBC) [Entitic vol] 44.1 fL 35.1-43.9 [facility] Erythrocyte distribution width (RBC) [Ratio] 12.7 % 11.6-14.6 [facility] Immature granulocytes/100 WBC (Bld) 0.500 % 0.0-0.9 [facility] Comment on above: IG% - Immature Granu locytes (promyelocytes, myelocytes and metamyelocytes) > 1% indicates that a LEFT SHIFT is Present. MCH (RBC) [Entitic mass] 31.3 pg 27.0-32.0 [facility] Nucleated RBC/100 WBC (Bld) [Ratio] 0 % 0-5 [facility] MCHC Auto (RBC) [Mass/Vol]Or dered By: Dr. Callejas on 02-16-2022 MCHC (RBC) [Mass/Vol] 33.1 g/dL 32-36 [facility] No Panel InformationOrdered By: Dr. Callejas on 02-16-2022 Estimated GFR (MDRD) Amer 100 mL/min >60 [facility] Comment on above: GFR Calc Estimated GFR (MDRD) Non-Af Amer 83 mL/min >60 [facility] Comment on above: Non- GFR Calc Platelets bldOrdered By: Dr. Callejas on 02-16-2022 Platelets (Bld) [#/Vol] 318 10*3/uL 150-450 [facility] Serum or plasma C reactive p rotein measurement (mass/volume)Ordered By: Dr. Callejas on 02-16-2022 CRP [Mass/Vol] 21.80 mg/L 0.0-3.0 [facility] Comment on above: C-Reactive Protein ( CRP) provides useful information for thediagnosis, therapy and monitoring of inflammatory processesand associated diseases. For the evaluation of Relative Riskfor Cardiovascular Disease, a High Sensitivity CRP (HSCRP)should be ordered. Serum or plasma albumin lissette urement (mass/volume)Ordered By: Dr. Callejas on 02-16-2022 Albumin [Mass/Vol] 3.6 g/dL 3.2-5.0 [facility] Serum or plasma albumin/glob ulin mass ratioOrdered By: Dr. Callejas on 02-16-2022 Albumin/Globulin [Mass ratio] 1.0 {ratio} 0.9-2.4 [facility] Serum or plasma calcium lissette urement (mass/volume)Ordered By: Dr. Callejas on 02-16-2022 Calcium [Mass/Vol] 9.7 mg/dL 8.5-10.1 [facility] Serum or plasma creatinine m easurement (mass/volume)Ordered By: Dr. Callejas on 02-16-2022 Creatinine [Mass/Vol] 0.76 mg/dL 0.55-1.02 [facility] Comment on above: The validity of the calculated GFR & GFRAA in patients over 70 years has not been determined. Clinical correlation is essential. Serum or plasma urea nitroge n measurement (mass/volume)Ordered By: Dr. Callejas on 02-16-2022 Urea nitrogen [Mass/Vol] 20 mg/dL 7-18 [facility] Thin prep Papanicolaou smear with manual screeningOrdered By: Dr. Callejas on 02-16-2022 Thin prep Papanicolaou smear with manual screening 13 U/L 15-37 [facility] Thin prep Papanicolaou smear with manual screening 8 5-15 [facility] Absolute lymphocyte counton 01-19-2022 Lymphocytes Auto (Unsp spec) [#/Vol] 1.50 10*3/uL 0.83-4.51 [facility] Work Phone: Basophil percentageon 2021 Basophils/100 WBC (Bld) 0.6 % 0-1 [facility] Work Phone: Eosinophils/100 WBC (Bld) 1.8 % 0-5 [facility] Work Phone: Neutrophils (Bld) [#/Vol] 5.9 10*3/uL 2.0-7.7 [facility] Work Phone: Neutrophils/100 WBC (Bld) 70.7 % 47-70 [facility] Work Phone: WBC (Bld) [#/Vol] 8.3 10*3/uL 4.4-11.0 [facility] Work Phone: Blood erythrocytes count (nu mber/volume)on 01-19-2022 RBC (Bld) [#/Vol] 4.20 10*6/uL 4.2-5.4 [facility] Work Phone: Blood hemoglobin measurement (mass/volume)on 01-19-2022 Hemoglobin (Bld) [Mass/Vol] 13.5 g/dL 12.0-15.0 [facility] Work Phone: Blood lymphocytes/100 leukoc yteson 01-19-2022 Lymphocytes/100 WBC (Bld) 18.1 % 19-41 [facility] Work Phone: Blood monocytes/100 leukocyt eson 01-19-2022 Monocytes/100 WBC (Bld) 8.4 % 0-10 [facility] Work Phone: Blood platelet mean volumeon 01-19-2022 Platelet mean volume (Bld) [Entitic vol] 9.8 fL 6.2-12.0 [facility] Work Phone: [phone] Determination of erythrocyte mean corpuscular volume (MCV)on 01-19-2022 MCV (RBC) [Entitic vol] 97.4 fL 81-99 [facility] Work Phone: [phone] Erythrocyte sedimentation ra marlo 01-19-2022 ESR (Bld) [Velocity] 17 mm/h 0-30 [facility]: [phone] Hematocrit Auto (Bld) [Volum e fraction]on 01-19-2022 Hematocrit (Bld) [Volume fraction] 40.9 % 37-47 [facility] Work Phone: [phone] Laboratory - Chemistry and C hemistry - challengeon 01-19-2022 CK [Catalytic activity/Vol] 56 U/L 26-192 [facility] Work Phone: [phone] Laboratory - Hematology and Cell countson 01-19-2022 Erythrocyte distribution width (RBC) [Entitic vol] 43.4 fL 35.1-43.9 [facility] Work Phone: [phone] Erythrocyte distribution width (RBC) [Ratio] 12.0 % 11.6-14.6 [facility] Work Phone: [phone] Immature granulocytes/100 WBC (Bld) 0.400 % 0.0-0.9 [facility] Work Phone: [phone] Comment on above: IG% - Immature Granu locytes (promyelocytes, myelocytes and metamyelocytes) > 1% indicates that a LEFT SHIFT is Present. MCH (RBC) [Entitic mass] 32.1 pg 27.0-32.0 [facility] Work Phone: [phone] Nucleated RBC/100 WBC (Bld) [Ratio] 0 % 0-5 [facility] Work Phone: [phone] MCHC Auto (RBC) [Mass/Vol]on 01-19-2022 MCHC (RBC) [Mass/Vol] 33.0 g/dL 32-36 [facility] Work Phone: No Panel Informationon 01-19 Anti-Nuclear Antibody Screen Negative Negative [facility] Work Phone: Comment on above: Performed at: [address] [id number] Director: Star Beckwith PhD, Phone: [phone] Thyroid Stimulating Hormone (TSH) 1.22 uIU/mL 0.358-3.74 [facility] Work Phone: Platelets bldon 01-19-2022 Platelets (Bld) [#/Vol] 355 10*3/uL 150-450 [facility] Work Phone: Serum cyclic citrullinated p eptide IgG antibody assay (units/volume)on 01-19-2022 Cyclic citrullinated peptide IgG Qn 8 units 0-19 [facility] Work Phone: Comment on above: Negative <20 Weak po sitive 20 - 39 Moderate positive 40 - 59 Strong positive >59Performed at: - [facility] [address] [id number] Director: Dennis Booth MD, Phone: [phone] Serum or plasma C reactive p rotein measurement (mass/volume)on 01-19-2022 CRP [Mass/Vol] 43.70 mg/L 0.0-3.0 [facility] Work Phone: Comment on above: C-Reactive Protein ( CRP) provides useful information for thediagnosis, therapy and monitoring of inflammatory processesand associated diseases. For the evaluation of Relative Riskfor Cardiovascular Disease, a High Sensitivity CRP (HSCRP)should be ordered. Serum rheumatoid factor dete ctionon 01-19-2022 Rheumatoid factor Ql (S) < 10.0 IU/mL <15 [facility] Work Phone: Laboratory - Microbiology an d Antimicrobial susceptibilityon 05-16-2021 SARS-CoV-2 (COVID-19) RNA HAO+probe Ql (Unsp spec) Detected Not Detect [facility] Work Phone: Comment on above: Normal Reference Ran ge: Not DetectedMethod:(RT-PCR) real-time reverse transcriptase PCRLuminex TORITO Instrument*The Food and Drug Administration (FDA) has issued an Emergency Use Authorization (EAU) for the TORITO SARS-CoV-2 Assay for the rapid detection of the virus that causes COVID-19. This test has been validated, but the FDAs independent review of this validation is pending.*Negative results do not preclude infection and should not be used as the sole basis for treatment or patient management. Optimum specimen types and timing for peak viral levels during infections caused by SARS-CoV-2 have not been determined. Collection of multiple specimens from the same patient may be necessary to detect the virus. The possibility of a false negative result should be considered if the patient has clinical presentation or has had recent exposure. Vital Signs Date Time Vital Sign Value Performing Clinician Faci lity 01-26-2023 09:13-0400 Body height 165.[address] Leah Callejas Work Phone: [facility] 01-26-2023 09:13-0400 Body mass index (BMI) [Ratio] 10.3 kg/m2 Dr. Leah Callejas Work Phone: [facility] 01-26-2023 09:13-0400 Body temperature 97.5 [degF] Dr. Leah Callejas Work Phone: [facility] 01-26-2023 09:13-0400 Body weight 28.[address] Leah Callejas Work Phone: [facility] 01-26-2023 09:13-0400 Diastolic blood pressure 71 mm[Hg] Dr. Leah Callejas Work Phone: [facility] 01-26-2023 09:13-0400 Heart rate 92 /min Dr. Leah Callejas Work Phone: [facility] 01-26-2023 09:13-0400 Respiratory rate 16 /min Dr. Leah Callejas Work Phone: [facility] 01-26-2023 09:13-0400 SaO2% (BldA) [Mass fraction] 95 % Dr. Leah Callejas Work Phone: [facility] 01-26-2023 09:13-0400 Systolic blood pressure 138 mm[Hg] Dr. Leah Callejas Work Phone: [facility] 02-01-2022 11:06-0400 Respiratory rate 16 /min [facility] Work Phone: 02-01-2022 09:33-0400 Body height 165.1 cm [facility] Work Phone: 02-01-2022 09:33-0400 Body mass index (BMI) [Ratio] 25 kg/m2 [facility] Work Phone: 02-01-2022 09:33-0400 Body temperature 98.3 [degF] [facility] Work Phone: 02-01-2022 09:33-0400 Body weight 68.4 kg [facility] Work Phone: 02-01-2022 09:33-0400 Diastolic blood pressure 76 mm[Hg] [facility] Work Phone: 02-01-2022 09:33-0400 Heart rate 89 /min [facility] Work Phone: 02-01-2022 09:33-0400 SaO2% (BldA) [Mass fraction] 100 % [facility] Work Phone: 02-01-2022 09:33-0400 Systolic blood pressure 154 mm[Hg] [facility] Work Phone: Encounters Encounter Date Encounter Type Care Provider Facility Start: 12-21-2024 End: 12-21-[address] Leah Callejas DO Work Phone: -[facility] Start: 12-21-2024 End: 12-21-[address] Obdulia Talbert MD -[facility] Work Phone: Start: 12-21-2024 End: 12-21-2024 ambulatory Leah Callejas Facility:[facility] Start: 01-29-2023 End: 01-29-[address] Leah Callejas Work Phone: [facility] Work Phone: Start: 01-29-2023 End: 01-29-[address] Leah Callejas Work Phone: [facility]-Outpatient Breast Imaging Work Phone: Start: 01-26-2023 End: 01-26-[address] Leah Callejas Work Phone: [facility] Work Phone: Start: 05-25-2022 End: 05-25-2022 ambulatory [facility] Work Phone: Start: 05-25-2022 End: 05-25-2022 [facility] Start: 03-13-2022 End: 03-13-2022 [facility] Start: 03-03-2022 End: 03-03-2022 Patient encounter procedure [facility] Start: 02-16-2022 End: 02-16-2022 ambulatory [facility] Work Phone: Start: 02-16-2022 End: 02-16-2022 Patient encounter procedure [facility]-Laboratory Start: 02-01-2022 End: 02-01-2022 Emergency department patient visit [facility]-Emergency Department Start: 01-19-2022 End: 01-19-2022 ambulatory [facility] Work Phone: Start: 01-19-2022 End: 01-19-2022 Patient encounter procedure [facility]-Laboratory Start: 07-13-2021 End: 07-13-[address] Leah Callejas Work Phone: [facility]-Massage Therapy, [facility] Start: 05-16-[address] Leah Callejas Work Phone: [facility]-Laboratory, Specimen Start: 05-16-2021 End: 05-16-[address] Leah Callejas Work Phone: [facility] Procedures Date Procedure Procedure Detail Performing Clinician Start: 12-21-2024 MRI of joint of lowe r extremity Dr. Leah Callejas DO Work Phone: Start: 01-29-2023 Screening mammography D r. Leah Callejas Work Phone: Start: 03-03-2022 MRI of cervical spine Start: 02-01-2022 X-ray of cervical spine Plan of Treatment Date Care Activity Detail Author Patient Education ED Radiculopathy, Cervi octavio [facility] Work Phone: Patient referral [facility] Work Phone: Immunizations Immunization Date Immunization Notes Care Provider Fa cility 06-24-2020 influenza, injectabl e, quadrivalent, preservative free Dr. Leah Callejas Work Phone: [facility] 06-24-2020 influenza, seasonal, injectable Dr. Leah Callejas Work Phone: [facility] 03-23-2019 influenza, injectabl e, quadrivalent, preservative free Dr. Leah Callejas Work Phone: [facility] 03-23-2019 influenza, seasonal, injectable Dr. Leah Callejas Work Phone: [facility] 02-14-2018 influenza, injectabl e, quadrivalent, preservative free Dr. Leah Callejas Work Phone: [facility] 02-14-2018 influenza, seasonal, injectable Dr. Leah Callejas Work Phone: [facility] 02-13-2017 influenza, injectabl e, quadrivalent, preservative free Dr. Leah Callejas Work Phone: [facility] 02-13-2017 influenza, seasonal, injectable Dr. Leah Callejas Work Phone: [facility] 02-16-2016 influenza, injectabl e, quadrivalent, preservative free Dr. Leah Callejas Work Phone: [facility] 02-16-2016 influenza, seasonal, injectable Dr. Leah Callejas Work Phone: [facility] 03-17-2015 influenza, injectabl e, quadrivalent, preservative free Dr. Leah Callejas Work Phone: [facility] 03-17-2015 influenza, seasonal, injectable Dr. Leah Callejas Work Phone: [facility] 02-01-2014 influenza, injectabl e, quadrivalent, preservative free Dr. Leah Callejas Work Phone: [facility] 02-01-2014 influenza, seasonal, injectable Dr. Leah Callejas Work Phone: [facility] Payers Date Payer Category Payer Self-pay [id number] 2024 Unknown [id number] 2016 [id number] Unknown [id number] Unknown [id number] Unknown [id number] Social History Date Type Detail Facility Start: 05-16-2021 End: 01-26-2023 Tobacco smoking status NHIS Unknown if ever smoked [facility] Start: 1965 Sex Assigned At Female [facility] Start: 09-02-2023 Tobacco smoking stat us COIS Ex-smoker (finding) [facility] Medical Equipment Procedure Code Equipment Code Equipment Origin al Text Equipment Identifier Dates Arthroscopy, shoulder, with rotator cuff repair FIBERTAPE FDA Start: 08-29-2020 Arthroscopy, shoulder, with rotator cuff repair FIBERTAPE FDA Start: 08-29-2020 Arthroscopy, shoulder, with rotator cuff repair FIBERTAPE [id number] FDA Start: 08-29-2020 Arthroscopy, shoulder, with rotator cuff repair FIBERTAPE [id number] FDA Start: 08-29-2020 Arthroscopy, shoulder, with rotator cuff repair SWIVELOCK,4.75 DOUBLE LOCK FDA Start: 08-29-2020 Arthroscopy, shoulder, with rotator cuff repair FIBERTAPE FDA Start: 08-29-2020 Arthroscopy, shoulder, with rotator cuff repair FIBERTAPE FDA Start: 08-29-2020 Arthroscopy, shoulder, with rotator cuff repair FIBERTAPE [id number] FDA Start: 08-29-2020 Arthroscopy, shoulder, with rotator cuff repair FIBERTAPE [id number] FDA Start: 08-29-2020 Arthroscopy, shoulder, with rotator cuff repair SWIVELOCK,4.75 DOUBLE LOCK FDA Start: 08-29-2020 Arthroscopy, shoulder, with rotator cuff repair FIBERTAPE FDA Start: 08-29-2020 Arthroscopy, shoulder, with rotator cuff repair FIBERTAPE FDA Start: 08-29-2020 Arthroscopy, shoulder, with rotator cuff repair FIBERTAPE [id number] FDA Start: 08-29-2020 Arthroscopy, shoulder, with rotator cuff repair FIBERTAPE [id number] FDA Start: 08-29-2020 Arthroscopy, shoulder, with rotator cuff repair SWIVELOCK,4.75 DOUBLE LOCK FDA Start: 08-29-2020 Arthroscopy, shoulder, with rotator cuff repair FIBERTAPE FDA Start: 08-29-2020 Arthroscopy, shoulder, with rotator cuff repair FIBERTAPE FDA Start: 08-29-2020 Arthroscopy, shoulder, with rotator cuff repair FIBERTAPE [id number] FDA Start: 08-29-2020 Arthroscopy, shoulder, with rotator cuff repair FIBERTAPE [id number] FDA Start: 08-29-2020 Arthroscopy, shoulder, with rotator cuff repair SWIVELOCK,4.75 DOUBLE LOCK FDA Start: 08-29-2020 Arthroscopy, shoulder, with rotator cuff repair FIBERTAPE FDA Start: 08-29-2020 Arthroscopy, shoulder, with rotator cuff repair FIBERTAPE FDA Start: 08-29-2020 Arthroscopy, shoulder, with rotator cuff repair FIBERTAPE [id number] FDA Start: 08-29-2020 Arthroscopy, shoulder, with rotator cuff repair FIBERTAPE [id number] FDA Start: 08-29-2020 Arthroscopy, shoulder, with rotator cuff repair SWIVELOCK,4.75 DOUBLE LOCK FDA Start: 08-29-2020 Arthroscopy, shoulder, with rotator cuff repair FIBERTAPE FDA Start: 08-29-2020 Arthroscopy, shoulder, with rotator cuff repair FIBERTAPE FDA Start: 08-29-2020 Arthroscopy, shoulder, with rotator cuff repair FIBERTAPE [id number] FDA Start: 08-29-2020 Arthroscopy, shoulder, with rotator cuff repair FIBERTAPE [id number] FDA Start: 08-29-2020 Arthroscopy, shoulder, with rotator cuff repair SWIVELOCK,4.75 DOUBLE LOCK FDA Start: 08-29-2020 Evaluation note Note Date & Type Note Facility Evaluation note No assessment information availa ble [facility] Work Phone: Evaluation note Note Date & Type Note Facility Evaluation note Diagnosis Onset Date Sinusitis acute [facility] Work Phone: Reason for referral (narrative) Note Date & Type Note Facility Reason for referral (narrative) No reason for referral information available [facility] Work Phone: Chief Complaint and Reason for Visit Chief Complaint COVID DRIVE THRU SP Chief Complaint B/L SHOULDER AND ARM Chief Complaint CERVICAL RAD PAIN- COPY PCP PAIN- COPY PCP Chief Complaint SINUS INFECTION SCREENING Reason for Visit Sinusitis Chief Complaint Admit Date Other tear of medial meniscus, current i shannon wagner December 21, 2024 5:04pm Family History No Family History Records Found Relationship Condition Age at Onset Recorded Date/T ashlyn Unknown Family History?Heart Disease Unknown August 18, 2020 10:08am Family History?Heart Disease Unknown May 16, 2021 11:17am Relationship Condition Age at Onset Recorded Date/T ashlyn Unknown Family History?Heart Disease Unknown August 18, 2020 9:08am Family History?Heart Disease Unknown May 16, 2021 10:17am Advance Directives No Advanced Directives Records Found Advance Directive Response Recorded Date/ Time Advance Directives No April 11:17am Living Will No May 16, 2 021 11:17am 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 May 16, 2021 11:17am Advance Directive Response Recorded Date/ Time Advance Directives No April 11:17am Living Will No February 01, 2022 10:33am 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 January 10:33am Advance Directive Response Recorded Date/ Time Advance Directives No April 10:17am Living Will No February 01, 2022 9:33am 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 Leah Callejas DO Family Provider Active Dr. Leah Callejas DO Primary Care Provider Active Team Status: Inactive Member Role Status Dates Dr. Leah Callejas DO Primary Care Provide r, Attending Provider, Referring Provider Active Team Status: Inactive Member Role Status Dates Dr. Leah Callejas DO Primary Care Provider Active Dr. Lisa Ortiz MD Attending Provider, Referring Provider Active Team Status: Inactive Member Role Status Dates Dr. Leah Callejas DO Primary Care Provider, Referring P francine Active Irvin MARIE, PA Attending Provider Active Team Status: Active Member Role/Relationship Status Dates Dr. Leah Callejas DO Primary Care Provider Active Team Status: Inactive Member Role/Relationship Status Dates Dr. Leah Callejas DO Primary Care Provider Active Start: December 21, 2024 End: December 21, 2024 Dr. Obdulia Talbert MD Attending Provider Acti ve Start: December 21, 2024 End: December 21, 2024 Dr. Obdulia Talbert MD Referring Provider Acti ve Start: December 21, 2024 End: December 21, 2024 INFORMATION SOURCE (unrecogn ized section and content) DATE CREATED AUTHOR 12/31/2024 [facility] FOR RECORDS PERTAINING TO PATIENTS WHO ARE OR HAVE BEEN ENROLLED IN A CHEMICAL DEPENDENCY/SUBSTANCEABUSE PROGRAM, SOME INFORMATION MAY BE OMITTED. This clinical summary was aggregated from multiple sources. Caution should be exercised in using it in the provision of clinical care. This summary normalizes information from multiple sources, and as a consequence, information in this document may materially change the coding, format and clinical context of patient data. In addition, data may be omitted in some cases. CLINICAL DECISIONS SHOULD BE BASED ON THE PRIMARY CLINICAL RECORDS. [facility] [employer] [facility] provides no warranty or guarantee of the accuracy or completeness of information in this document.
== END | disposition home or self-care (01) ==
PROVIDERS: PCP Family Medicine; Referring Provider Family Medicine; Visit Provider Family Medicine
DX: Z12.31 Encounter for screening mammogram for malignant neoplasm of breast (principal); Z80.3 Family history of malignant neoplasm of breast
CPT/HCPCS: 77063; 77067

== ENCOUNTER → 2025-05-01 | Outpatient (CLI) | payer BC, SELFPAY ==
--- OUTSIDE RECORDS SUMMARY | 2025-05-01 10:21 | XMS RPT_ITS | CCD ---
Author Organization [facility] Care Team Providers Care Junk Removal Specialist Name Role Phone Dr. Leah Callejas Primary Care Provider Dr. Leah Callejas Referring Provider CYNTHIA Gabriel Attending Provider Dr. Leah Callejas DO Primary Care Provider Kp BOOGIE, Dr. Obdulia Iraheta Attending Provider Kp BOOGIE, Dr. Obdulia Iraheta Referring Provider Leah Callejas Primary Care Unavailable Obdulia Talbert Referring Unavailab Obdulia Vallecillo Attending Unavailab juan carlos Allergies Allergy Classification Reported Allergen(s) Allergy Type Date of Onset Reaction(s) Facility (5 sources) Sulfonamides (Antibiotic) Allergy to substance 1 Unknown [facility] (1 source) Sulfonamides (Antibiotic) Drug allergy (disorder) 4 [facility] Repository Medications Current Medications Medication Drug [...] By: Daniel Duron on 12-22-2024 Study report [facility] Imaging Services [address] [place] [address] Lower Ext Joint Only (Routine) MR#: [id number] Acct: [id number] Name: JIMMIE ALY Rep #: [id number] : 1965 F 59 From: Eda Duron MD PCP: Dr. Leah Callejas, Status: REG CLI Study:Lower Ext Joint Only (Routine) Date of Exam: 12/21/24 Exam# [id number] Ordering Dr: OBDULIA BERRIOS PROCEDURE: LOWER EXT [...] fibers of the quadriceps tendon. Reading Location: [place] [address] CC: Dr. Leah Callejas DO; OBDULIA TALBERT ~ Internal Controls Consultant: Signed [facility] Lower Ext Joint Only (Routin e)on 12-21-2024 Lower Ext Joint Only (Routine) [facility] Imaging Services [address] [place] [address] Lower Ext Joint Only (Routine) MR#: [id number] Acct: [id number] Name: JIMMIE ALY Rep #: [id number] : 1965 F 59 From: Daniel walters MD PCP: Dr. Leah Callejas DO Status: REG CLI Study: Lower Ext Joint Only (Routine) Date of Exam: 0 12/21/24 Exam# [id number] Ordering Dr: SARAH FREIRE PROCEDURE: LOWER EXT [...] fibers of the quadriceps tendon. Reading Location: [place] [address] CC: Dr. Leah Callejas DO; OBDULIA TALBERT Internal Controls Consultant: Signed Normal [facility] Absolute lymphocyte countOrd ered By: Dr. Ortiz on 05-25-2022 Lymphocytes Auto (Unsp spec) [#/Vol] 2.98 10*3/uL 0.83-4.51 [facility] Basophil percentageOrdered B y: Dr. Ortiz on 05-25-2022 Basophils/100 WBC (Bld) 0.6 % 0-1 [facility] Bilirubin [Mass/Vol] 0.20 mg/dL 0.20-1.00 [facility] Comment on above: For patients on eltr ombopag therapy, use of Dimension [place] TBIL is not recommended. Chloride [Moles/Vol] 108 mmol/L 98-107 [facility] Eosinophils/100 WBC (Bld) 1.4 % 0-5 [facility] Glucose [Mass/Vol] 80 mg/dL 74-106 [facility] Neutrophils (Bld) [#/Vol] 3.4 10*3/uL 2.0-7.7 [facility] Neutrophils/100 WBC (Bld) 46.7 % 47-70 [facility] Potassium [Moles/Vol] 3.7 mmol/L 3.5-5.1 [facility] Protein [Mass/Vol] 6.4 g/dL 6.4-8.2 [facility] Sodium [Moles/Vol] 143 mmol/L 136-145 [facility] WBC (Bld) [#/Vol] 7.2 10*3/uL 4.4-11.0 [facility] Blood erythrocytes count (nu mber/volume)Ordered By: Dr. Ortiz on 05-25-2022 RBC (Bld) [#/Vol] 4.14 10*6/uL 4.2-5.4 [facility] Blood hemoglobin measurement (mass/volume)Ordered By: Dr. Ortiz on 05-25-2022 Hemoglobin (Bld) [Mass/Vol] 13.3 g/dL 12.0-15.0 [facility] Blood lymphocytes/100 leukoc ytesOrdered By: Dr. Ortiz on 05-25-2022 Lymphocytes/100 WBC (Bld) 41.6 % 19-41 [facility] Blood monocytes/100 leukocyt esOrdered By: Dr. Ortiz on 05-25-2022 Monocytes/100 WBC (Bld) 9.3 % 0-10 [facility] Blood platelet mean volumeOr dered By: Dr. Ortiz on 05-25-2022 Platelet mean volume (Bld) [Entitic vol] 10.3 fL 6.2-12.0 [facility] Determination of erythrocyte mean corpuscular volume (MCV)Ordered By: Dr. Ortiz on 05-25-2022 MCV (RBC) [Entitic vol] 99.0 fL 81-99 [facility] Hematocrit Auto (Bld) [Volum e fraction]Ordered By: Dr. Ortiz on 05-25-2022 Hematocrit (Bld) [Volume fraction] 41.0 % 37-47 [facility] Laboratory - Chemistry and C hemistry - challengeOrdered By: Dr. Ortiz on 05-25-2022 ALP [Catalytic activity/Vol] 55 U/L 45-117 [facility] ALT [Catalytic activity/Vol] 29 U/L 13-56 [facility] CO2 [Moles/Vol] 28.0 mmol/L 21.0-32.0 [facility] Globulin (S) [Mass/Vol] 2.9 g/dL 2.2-4.2 [facility] Urea nitrogen/Creatinine [Mass ratio] 30.5 mg/mg 10-20 [facility] Laboratory - Hematology and Cell countsOrdered By: Dr. Ortiz on 05-25-2022 Erythrocyte distribution width (RBC) [Entitic vol] 50.2 fL 35.1-43.9 [facility] Erythrocyte distribution width (RBC) [Ratio] 14.2 % 11.6-14.6 [facility] Immature granulocytes/100 WBC (Bld) 0.400 % 0.0-0.9 [facility] Comment on above: IG% - Immature Granu locytes (promyelocytes, myelocytes and metamyelocytes) > 1% indicates that a LEFT SHIFT is Present. MCH (RBC) [Entitic mass] 32.1 pg 27.0-32.0 [facility] Nucleated RBC/100 WBC (Bld) [Ratio] 0 % 0-5 [facility] MCHC Auto (RBC) [Mass/Vol]Or dered By: Dr. Ortiz on 05-25-2022 MCHC (RBC) [Mass/Vol] 32.4 g/dL 32-36 [facility] No Panel InformationOrdered By: Dr. Ortiz on 05-25-2022 Estimated GFR (MDRD) Amer 107 mL/min >60 [facility] Comment on above: GFR Calc Estimated GFR (MDRD) Non-Af Amer 88 mL/min >60 [facility] Comment on above: Non- GFR Calc Platelets bldOrdered By: Dr. Ortiz on 05-25-2022 Platelets (Bld) [#/Vol] 241 10*3/uL 150-450 [facility] Serum or plasma albumin lissette urement (mass/volume)Ordered By: Dr. Ortiz on 05-25-2022 Albumin [Mass/Vol] 3.5 g/dL 3.2-5.0 [facility] Serum or plasma albumin/glob ulin mass ratioOrdered By: Dr. Ortiz on 05-25-2022 Albumin/Globulin [Mass ratio] 1.2 {ratio} 0.9-2.4 [facility] Serum or plasma calcium lissette urement (mass/volume)Ordered By: Dr. Ortiz on 05-25-2022 Calcium [Mass/Vol] 8.5 mg/dL 8.5-10.1 [facility] Serum or plasma creatinine m easurement (mass/volume)Ordered By: Dr. Ortiz on 05-25-2022 Creatinine [Mass/Vol] 0.72 mg/dL 0.55-1.02 [facility] Comment on above: The validity of the calculated GFR & GFRAA in patients over 70 years has not been determined. Clinical correlation is essential. Serum or plasma urea nitroge n measurement (mass/volume)Ordered By: Dr. Ortiz on 05-25-2022 Urea nitrogen [Mass/Vol] 22 mg/dL 7-18 [facility] Thin prep Papanicolaou smear with manual screeningOrdered By: Dr. Ortiz on 05-25-2022 Thin prep Papanicolaou smear with manual screening 16 U/L 15-37 [facility] Thin prep Papanicolaou smear with manual screening 7 5-15 [facility] Absolute lymphocyte countOrd ered By: Dr. Ortiz on 03-13-2022 Lymphocytes Auto (Unsp spec) [#/Vol] 1.24 10*3/uL 0.83-4.51 [facility] Basophil percentageOrdered B y: Dr. Ortiz on 03-13-2022 Basophils/100 WBC (Bld) 0.3 % 0-1 [facility] Bilirubin [Mass/Vol] 0.60 mg/dL 0.20-1.00 [facility] Comment on above: For patients on eltr ombopag therapy, use of Dimension [place] TBIL is not recommended. Chloride [Moles/Vol] 105 mmol/L 98-107 [facility] Eosinophils/100 WBC (Bld) 0.1 % 0-5 [facility] Glucose [Mass/Vol] 109 mg/dL 74-106 [facility] Comment on above: Fasting Glucose resu lt from 100 to 125 mg/dL suggests IMPAIRED HOMEOSTASIS per A.D.A. criteria. Neutrophils (Bld) [#/Vol] 9.8 10*3/uL 2.0-7.7 [facility] Neutrophils/100 WBC (Bld) 84.9 % 47-70 [facility] Potassium [Moles/Vol] 4.1 mmol/L 3.5-5.1 [facility] Protein [Mass/Vol] 7.9 g/dL 6.4-8.2 [facility] Sodium [Moles/Vol] 139 mmol/L 136-145 [facility] WBC (Bld) [#/Vol] 11.5 10*3/uL 4.4-11.0 [facility] Blood erythrocytes count (nu mber/volume)Ordered By: Dr. Ortiz on 03-13-2022 RBC (Bld) [#/Vol] 4.40 10*6/uL 4.2-5.4 [facility] Blood hemoglobin measurement (mass/volume)Ordered By: Dr. Ortiz on 03-13-2022 Hemoglobin (Bld) [Mass/Vol] 14.0 g/dL 12.0-15.0 [facility] Blood lymphocytes/100 leukoc ytesOrdered By: Dr. Ortiz on 03-13-2022 Lymphocytes/100 WBC (Bld) 10.8 % 19-41 [facility] Blood monocytes/100 leukocyt esOrdered By: Dr. Ortiz on 03-13-2022 Monocytes/100 WBC (Bld) 3.6 % 0-10 [facility] Blood platelet mean volumeOr dered By: Dr. Ortiz on 03-13-2022 Platelet mean volume (Bld) [Entitic vol] 9.8 fL 6.2-12.0 [facility] Determination of erythrocyte mean corpuscular volume (MCV)Ordered By: Dr. Ortiz on 03-13-2022 MCV (RBC) [Entitic vol] 94.5 fL 81-99 [facility] Hematocrit Auto (Bld) [Volum e fraction]Ordered By: Dr. Ortiz on 03-13-2022 Hematocrit (Bld) [Volume fraction] 41.6 % 37-47 [facility] Laboratory - Chemistry and C hemistry - challengeOrdered By: Dr. Ortiz on 03-13-2022 ALP [Catalytic activity/Vol] 67 U/L 45-117 [facility] ALT [Catalytic activity/Vol] 29 U/L 13-56 [facility] CO2 [Moles/Vol] 27.0 mmol/L 21.0-32.0 [facility] Globulin (S) [Mass/Vol] 3.8 g/dL 2.2-4.2 [facility] Urea nitrogen/Creatinine [Mass ratio] 29.3 mg/mg 10-20 [facility] Laboratory - Hematology and Cell countsOrdered By: Dr. Ortiz on 03-13-2022 Erythrocyte distribution width (RBC) [Entitic vol] 47.0 fL 35.1-43.9 [facility] Erythrocyte distribution width (RBC) [Ratio] 13.4 % 11.6-14.6 [facility] Immature granulocytes/100 WBC (Bld) 0.300 % 0.0-0.9 [facility] Comment on above: IG% - Immature Granu locytes (promyelocytes, myelocytes and metamyelocytes) > 1% indicates that a LEFT SHIFT is Present. MCH (RBC) [Entitic mass] 31.8 pg 27.0-32.0 [facility] Nucleated RBC/100 WBC (Bld) [Ratio] 0 % 0-5 [facility] MCHC Auto (RBC) [Mass/Vol]Or dered By: Dr. Ortiz on 03-13-2022 MCHC (RBC) [Mass/Vol] 33.7 g/dL 32-36 [facility] No Panel InformationOrdered By: Dr. Ortiz on 03-13-2022 Anti-Nuclear Antibody Screen Negative Negative [facility] Comment on above: Performed at: [facility] [address] [id number] Director: Star Beckwith PhD, Phone: [phone] Estimated GFR (MDRD) Amer 114 mL/min >60 [facility] Comment on above: GFR Calc Estimated GFR (MDRD) Non-Af Amer 94 mL/min >60 [facility] Comment on above: Non- GFR Calc Hepatitis B Surface Antigen Non-Reactive Nonreactive [facility] Hepatitis C Antibody Non-Reactive Nonreactive [facility] Comment on above: Non Reactive: < 0.8 Equivocal: >/= 0.8 to < 1.0 Reactive: >/= 1.0The CDC recommends that a reactive/equivocal HCV antibody result be followed up by the HCV Nucleic Acid Amplificationtest (183349) Platelets bldOrdered By: Dr. Ortiz on 03-13-2022 Platelets (Bld) [#/Vol] 325 10*3/uL 150-450 [facility] Serum cyclic citrullinated p eptide IgG antibody assay (units/volume)Ordered By: Dr. Ortiz on 03-13-2022 Cyclic citrullinated peptide IgG Qn 2 units 0-19 [facility] Comment on above: Negative <20 Weak po sitive 20 - 39 Moderate positive 40 - 59 Strong positive >59Performed at: [facility] [id number] Director: Dennis Booth MD, Phone: [phone] Serum hepatitis B virus surf peter antibody IgG detectionOrdered By: Dr. Ortiz on 03-13-2022 HBV surface IgG Ql (S) Reactive [facility] Comment on above: Non Reactive: Incons istent with immunity less than <10 mIU/mL Reactive: Consistent with immunity greater than or equal to 10 mIU/mL Serum or plasma albumin lissette urement (mass/volume)Ordered By: Dr. Ortiz on 03-13-2022 Albumin [Mass/Vol] 4.1 g/dL 3.2-5.0 [facility] Serum or plasma albumin/glob ulin mass ratioOrdered By: Dr. Ortiz on 03-13-2022 Albumin/Globulin [Mass ratio] 1.1 {ratio} 0.9-2.4 [facility] Serum or plasma calcium lissette urement (mass/volume)Ordered By: Dr. Ortiz on 03-13-2022 Calcium [Mass/Vol] 10.1 mg/dL 8.5-10.1 [facility] Serum or plasma creatinine m easurement (mass/volume)Ordered By: Dr. Ortiz on 03-13-2022 Creatinine [Mass/Vol] 0.68 mg/dL 0.55-1.02 [facility] Comment on above: The validity of the calculated GFR & GFRAA in patients over 70 years has not been determined. Clinical correlation is essential. Serum or plasma urea nitroge n measurement (mass/volume)Ordered By: Dr. Ortiz on 03-13-2022 Urea nitrogen [Mass/Vol] 20 mg/dL 7-18 [facility] Serum rheumatoid factor dete ctionOrdered By: Dr. Ortiz on 03-13-2022 Rheumatoid factor Ql (S) < 10.0 IU/mL <15 [facility] Thin prep Papanicolaou smear with manual screeningOrdered By: Dr. Ortiz on 03-13-2022 Thin prep Papanicolaou smear with manual screening 20 U/L 15-37 [facility] Thin prep Papanicolaou smear with manual screening 7 5-15 [facility] Absolute lymphocyte countOrd ered By: Dr. Callejas on 02-16-2022 Lymphocytes Auto (Unsp spec) [#/Vol] 2.54 10*3/uL 0.83-4.51 [facility] Basophil percentageOrdered B y: Dr. Callejas on 02-16-2022 Basophils/100 WBC (Bld) 0.4 % 0-1 [facility] Bilirubin [Mass/Vol] 0.40 mg/dL 0.20-1.00 [facility] Comment on above: For patients on eltr ombopag therapy, use of Dimension [place] TBIL is not recommended. Chloride [Moles/Vol] 103 mmol/L 98-107 [facility] Eosinophils/100 WBC (Bld) 0.6 % 0-5 [facility] Glucose [Mass/Vol] 176 mg/dL 74-106 [facility] Comment on above: Fasting Glucose resu lt greater than or equal to 126 mg/dL suggests DIABETES MELLITUS per A.D.A. criteria. Neutrophils (Bld) [#/Vol] 13.0 10*3/uL 2.0-7.7 [facility] Neutrophils/100 WBC (Bld) 76.7 % 47-70 [facility] Potassium [Moles/Vol] 4.0 mmol/L 3.5-5.1 [facility] Protein [Mass/Vol] 7.3 g/dL 6.4-8.2 [facility] Sodium [Moles/Vol] 138 mmol/L 136-145 [facility] WBC (Bld) [#/Vol] 17.0 10*3/uL 4.4-11.0 [facility] Blood erythrocytes count (nu mber/volume)Ordered By: Dr. Callejas on 02-16-2022 RBC (Bld) [#/Vol] 4.38 10*6/uL 4.2-5.4 [facility] Blood hemoglobin measurement (mass/volume)Ordered By: Dr. Callejas on 02-16-2022 Hemoglobin (Bld) [Mass/Vol] 13.7 g/dL 12.0-15.0 [facility] Blood lymphocytes/100 leukoc ytesOrdered By: Dr. Callejas on 02-16-2022 Lymphocytes/100 WBC (Bld) 15.0 % 19-41 [facility] Blood monocytes/100 leukocyt esOrdered By: Dr. Callejas on 02-16-2022 Monocytes/100 WBC (Bld) 6.8 % 0-10 [facility] Blood platelet mean volumeOr dered By: Dr. Callejas on 02-16-2022 Platelet mean volume (Bld) [Entitic vol] 9.7 fL 6.2-12.0 [facility] Determination of erythrocyte mean corpuscular volume (MCV)Ordered By: Dr. Callejas on 02-16-2022 MCV (RBC) [Entitic vol] 94.5 fL 81-99 [facility] Erythrocyte sedimentation ra teOrdered By: Dr. Callejas on 02-16-2022 ESR (Bld) [Velocity] 12 mm/h 0-30 [facility] Hematocrit Auto (Bld) [Volum e fraction]Ordered By: Dr. Callejas on 02-16-2022 Hematocrit (Bld) [Volume fraction] 41.4 % 37-47 [facility] Laboratory - Chemistry and C hemistry - challengeOrdered By: Dr. Callejas on 02-16-2022 ALP [Catalytic activity/Vol] 73 U/L 45-117 [facility] ALT [Catalytic activity/Vol] 22 U/L 13-56 [facility] CO2 [Moles/Vol] 27.0 mmol/L 21.0-32.0 [facility] Globulin (S) [Mass/Vol] 3.7 g/dL 2.2-4.2 [facility] Urea nitrogen/Creatinine [Mass ratio] 26.2 mg/mg 10-20 [facility] Laboratory - Hematology and Cell countsOrdered By: Dr. Callejas on 02-16-2022 Erythrocyte distribution width (RBC) [Entitic vol] 44.1 fL 35.1-43.9 [facility] Erythrocyte distribution width (RBC) [Ratio] 12.7 % 11.6-14.6 [facility] Immature granulocytes/100 WBC (Bld) 0.500 % 0.0-0.9 [facility] Comment on above: IG% - Immature Granu locytes (promyelocytes, myelocytes and metamyelocytes) > 1% indicates that a LEFT SHIFT is Present. MCH (RBC) [Entitic mass] 31.3 pg 27.0-32.0 [facility] Nucleated RBC/100 WBC (Bld) [Ratio] 0 % 0-5 [facility] MCHC Auto (RBC) [Mass/Vol]Or dered By: Dr. Callejas on 02-16-2022 MCHC (RBC) [Mass/Vol] 33.1 g/dL 32-36 [facility] No Panel InformationOrdered By: Dr. Callejas on 02-16-2022 Estimated GFR (MDRD) Amer 100 mL/min >60 [facility] Comment on above: GFR Calc Estimated GFR (MDRD) Non-Af Amer 83 mL/min >60 [facility] Comment on above: Non- GFR Calc Platelets bldOrdered By: Dr. Callejas on 02-16-2022 Platelets (Bld) [#/Vol] 318 10*3/uL 150-450 [facility] Serum or plasma C reactive p rotein measurement (mass/volume)Ordered By: Dr. Callejas on 02-16-2022 CRP [Mass/Vol] 21.80 mg/L 0.0-3.0 [facility] Comment on above: C-Reactive Protein ( CRP) provides useful information for thediagnosis, therapy and monitoring of inflammatory processesand associated diseases. For the evaluation of Relative Riskfor Cardiovascular Disease, a High Sensitivity CRP (HSCRP)should be ordered. Serum or plasma albumin lissette urement (mass/volume)Ordered By: Dr. Callejas on 02-16-2022 Albumin [Mass/Vol] 3.6 g/dL 3.2-5.0 [facility] Serum or plasma albumin/glob ulin mass ratioOrdered By: Dr. Callejas on 02-16-2022 Albumin/Globulin [Mass ratio] 1.0 {ratio} 0.9-2.4 [facility] Serum or plasma calcium lissette urement (mass/volume)Ordered By: Dr. Callejas on 02-16-2022 Calcium [Mass/Vol] 9.7 mg/dL 8.5-10.1 [facility] Serum or plasma creatinine m easurement (mass/volume)Ordered By: Dr. Callejas on 02-16-2022 Creatinine [Mass/Vol] 0.76 mg/dL 0.55-1.02 [facility] Comment on above: The validity of the calculated GFR & GFRAA in patients over 70 years has not been determined. Clinical correlation is essential. Serum or plasma urea nitroge n measurement (mass/volume)Ordered By: Dr. Callejas on 02-16-2022 Urea nitrogen [Mass/Vol] 20 mg/dL 7-18 [facility] Thin prep Papanicolaou smear with manual screeningOrdered By: Dr. Callejas on 02-16-2022 Thin prep Papanicolaou smear with manual screening 13 U/L 15-37 [facility] Thin prep Papanicolaou smear with manual screening 8 5-15 [facility] Absolute lymphocyte counton 01-19-2022 Lymphocytes Auto (Unsp spec) [#/Vol] 1.50 10*3/uL 0.83-4.51 [facility] Work Phone: Basophil percentageon 2021 Basophils/100 WBC (Bld) 0.6 % 0-1 [facility] Work Phone: Eosinophils/100 WBC (Bld) 1.8 % 0-5 [facility] Work Phone: Neutrophils (Bld) [#/Vol] 5.9 10*3/uL 2.0-7.7 [facility] Work Phone: Neutrophils/100 WBC (Bld) 70.7 % 47-70 [facility] Work Phone: WBC (Bld) [#/Vol] 8.3 10*3/uL 4.4-11.0 [facility] Work Phone: Blood erythrocytes count (nu mber/volume)on 01-19-2022 RBC (Bld) [#/Vol] 4.20 10*6/uL 4.2-5.4 [facility] Work Phone: Blood hemoglobin measurement (mass/volume)on 01-19-2022 Hemoglobin (Bld) [Mass/Vol] 13.5 g/dL 12.0-15.0 [facility] Work Phone: Blood lymphocytes/100 leukoc yteson 01-19-2022 Lymphocytes/100 WBC (Bld) 18.1 % 19-41 [facility] Work Phone: Blood monocytes/100 leukocyt eson 01-19-2022 Monocytes/100 WBC (Bld) 8.4 % 0-10 [facility] Work Phone: Blood platelet mean volumeon 01-19-2022 Platelet mean volume (Bld) [Entitic vol] 9.8 fL 6.2-12.0 [facility] Work Phone: [phone] Determination of erythrocyte mean corpuscular volume (MCV)on 01-19-2022 MCV (RBC) [Entitic vol] 97.4 fL 81-99 [facility] Work Phone: [phone] Erythrocyte sedimentation ra marlo 01-19-2022 ESR (Bld) [Velocity] 17 mm[facility]h 0-30 [facility]: [phone] Hematocrit Auto (Bld) [Volum e fraction]on 01-19-2022 Hematocrit (Bld) [Volume fraction] 40.9 % 37-47 [facility] Work Phone: [phone] Laboratory - Chemistry and C hemistry - challengeon 01-19-2022 CK [Catalytic activity/Vol] 56 U/L 26-192 [facility] Work Phone: [phone] Laboratory - Hematology and Cell countson 01-19-2022 Erythrocyte distribution width (RBC) [Entitic vol] 43.4 fL 35.1-43.9 [facility] Work Phone: [phone] Erythrocyte distribution width (RBC) [Ratio] 12.0 % 11.6-14.6 [facility] Work Phone: [phone] Immature granulocytes/100 WBC (Bld) 0.400 % 0.0-0.9 [facility] Work Phone: [phone] Comment on above: IG% - Immature Granu locytes (promyelocytes, myelocytes and metamyelocytes) > 1% indicates that a LEFT SHIFT is Present. MCH (RBC) [Entitic mass] 32.1 pg 27.0-32.0 [facility] Work Phone: [phone] Nucleated RBC/100 WBC (Bld) [Ratio] 0 % 0-5 [facility] Work Phone: [phone] MCHC Auto (RBC) [Mass/Vol]on 01-19-2022 MCHC (RBC) [Mass/Vol] 33.0 g/dL 32-36 [facility] Work Phone: No Panel Informationon 01-19 Anti-Nuclear Antibody Screen Negative Negative [facility] Work Phone: Comment on above: Performed at: [address] [id number] Director: Star Beckwith PhD, Phone: [phone] Thyroid Stimulating Hormone (TSH) 1.22 uIU/mL 0.358-3.74 [facility] Work Phone: Platelets bldon 01-19-2022 Platelets (Bld) [#/Vol] 355 10*3/uL 150-450 [facility] Work Phone: Serum cyclic citrullinated p eptide IgG antibody assay (units/volume)on 01-19-2022 Cyclic citrullinated peptide IgG Qn 8 units 0-19 [facility] Work Phone: Comment on above: Negative <20 Weak po sitive 20 - 39 Moderate positive 40 - 59 Strong positive >59Performed at: - [facility] [address] [id number] Director: Dennis Booth MD, Phone: [phone] Serum or plasma C reactive p rotein measurement (mass/volume)on 01-19-2022 CRP [Mass/Vol] 43.70 mg/L 0.0-3.0 [facility] Work Phone: Comment on above: C-Reactive Protein ( CRP) provides useful information for thediagnosis, therapy and monitoring of inflammatory processesand associated diseases. For the evaluation of Relative Riskfor Cardiovascular Disease, a High Sensitivity CRP (HSCRP)should be ordered. Serum rheumatoid factor dete ctionon 01-19-2022 Rheumatoid factor Ql (S) < 10.0 IU/mL <15 [facility] Work Phone: Laboratory - Microbiology an d Antimicrobial susceptibilityon 05-16-2021 SARS-CoV-2 (COVID-19) RNA HAO+probe Ql (Unsp spec) Detected Not Detect [facility] Work Phone: Comment on above: Normal [...] 165.[address] Leah Callejas Work Phone: [facility] 01-26-2023 09:13-0400 Body mass index (BMI) [Ratio] 10.3 kg/m2 Dr. Leah Callejas Work Phone: [facility] 01-26-2023 09:13-0400 Body temperature 97.5 [degF] Dr. Leah Callejas Work Phone: [facility] 01-26-2023 09:13-0400 Body weight 28.[address] Leah Callejas Work Phone: [facility] 01-26-2023 09:13-0400 Diastolic blood pressure 71 mm[Hg] Dr. Leah Callejas Work Phone: [facility] 01-26-2023 09:13-0400 Heart rate 92 /min Dr. Leah Callejas Work Phone: [facility] 01-26-2023 09:13-0400 Respiratory rate 16 /min Dr. Leah Callejas Work Phone: [facility] 01-26-2023 09:13-0400 SaO2% (BldA) [Mass fraction] 95 % Dr. Leah Callejas Work Phone: [facility] 01-26-2023 09:13-0400 Systolic blood pressure 138 mm[Hg] Dr. Leah Callejas Work Phone: [facility] 02-01-2022 11:06-0400 Respiratory rate 16 /min [facility] Work Phone: 02-01-2022 09:33-0400 Body height 165.1 cm [facility] Work Phone: 02-01-2022 09:33-0400 Body mass index (BMI) [Ratio] 25 kg/m2 [facility] Work Phone: 02-01-2022 09:33-0400 Body temperature 98.3 [degF] [facility] Work Phone: 02-01-2022 09:33-0400 Body weight 68.4 kg [facility] Work Phone: 02-01-2022 09:33-0400 Diastolic blood pressure 76 mm[Hg] [facility] Work Phone: 02-01-2022 09:33-0400 Heart rate 89 /min [facility] [facility] Work Phone: 02-01-2022 09:33-0400 SaO2% (BldA) [Mass fraction] 100 % [facility] Work Phone: 02-01-2022 09:33-0400 Systolic blood pressure 154 mm[Hg] [facility] Work Phone: Encounters Encounter Date Encounter Type Care Provider Facility Start: 12-21-2024 End: 12-21-[address] Leah Callejas DO Work Phone: -[facility] Start: 12-21-2024 End: 12-21-[address] Obdulia Talbert MD -[facility] Work Phone: Start: 12-21-2024 End: 12-21-2024 ambulatory Leah Callejas Facility:[facility] Start: 01-29-2023 End: 01-29-[address] Leah Callejas Work Phone: [facility] Work Phone: Start: 01-29-2023 End: 01-29-[address] Leah Callejas Work Phone: [facility] Work Phone: Start: 01-26-2023 End: 01-26-[address] Leah Callejas Work Phone: [facility] Work Phone: Start: 05-25-2022 End: 05-25-2022 ambulatory [facility] Work Phone: Start: 05-25-2022 End: 05-25-2022 [facility] Start: 03-13-2022 End: 03-13-2022 [facility] Start: 03-03-2022 End: 03-03-2022 Patient encounter procedure [facility] Start: 02-16-2022 End: 02-16-2022 ambulatory [facility] Work Phone: Start: 02-16-2022 End: 02-16-2022 Patient encounter procedure [facility] Start: 02-01-2022 End: 02-01-2022 Emergency department patient visit [facility]Emergency [facility] Start: 01-19-2022 End: 01-19-2022 ambulatory [facility] Work Phone: Start: 01-19-2022 End: 01-19-2022 Patient encounter procedure [facility] Start: 07-13-2021 End: 07-13-[address] Leah Callejas Work Phone: [facility], [facility] Start: 05-16-[address] Leah Callejas Work Phone: [facility]-Laboratory, Specimen Start: 05-16-2021 End: 05-16-[address] Leah Callejas Work Phone: [facility] Procedures Date Procedure Procedure Detail Performing Clinician Start: 12-21-2024 MRI of joint of lowe r extremity Dr. Leah Callejas DO Work Phone: Start: 01-29-2023 Screening mammography D r. Leah Callejas Work Phone: Start: 03-03-2022 MRI of cervical spine Start: 02-01-2022 X-ray of cervical spine Plan of Treatment Date Care Activity Detail Author Patient Education ED Radiculopathy, Cervi octavio [facility] Work Phone: Patient referral [facility] Work Phone: Immunizations Immunization Date Immunization Notes Care Provider Fa cility 06-24-2020 influenza, injectabl e, quadrivalent, preservative free Dr. Leah Callejas Work Phone: [facility] 06-24-2020 influenza, seasonal, injectable Dr. Leah Callejas Work Phone: [facility] 03-23-2019 influenza, injectabl e, quadrivalent, preservative free Dr. Leah Callejas Work Phone: [facility] 03-23-2019 influenza, seasonal, injectable Dr. Leah Callejas Work Phone: [facility] 02-14-2018 influenza, injectabl e, quadrivalent, preservative free Dr. Leah Callejas Work Phone: [facility] 02-14-2018 influenza, seasonal, injectable Dr. Leah Callejas Work Phone: [facility] 02-13-2017 influenza, injectabl e, quadrivalent, preservative free Dr. Leah Callejas Work Phone: [facility] 02-13-2017 influenza, seasonal, injectable Dr. Leah Callejas Work Phone: [facility] 02-16-2016 influenza, injectabl e, quadrivalent, preservative free Dr. Leah Callejas Work Phone: [facility] 02-16-2016 influenza, seasonal, injectable Dr. Leah Callejas Work Phone: [facility] 03-17-2015 influenza, injectabl e, quadrivalent, preservative free Dr. Leah Callejas Work Phone: [facility] 03-17-2015 influenza, seasonal, injectable Dr. Leah Callejas Work Phone: [facility] 02-01-2014 influenza, injectabl e, quadrivalent, preservative free Dr. Leah Callejas Work Phone: [facility] 02-01-2014 influenza, seasonal, injectable Dr. Leah Callejas Work Phone: [facility] Payers Date Payer Category Payer Self-pay [id number] 2024 Unknown [id number] 2016 [id number] Unknown [id number] Unknown [id number] Social History Date Type Detail Facility Start: 05-16-2021 End: 01-26-2023 Tobacco smoking status NHIS Unknown if ever smoked [facility] Start: 1965 Sex Assigned At Female W [facility] Start: 09-02-2023 Tobacco smoking stat us NEIS Ex-smoker (finding) [facility] Medical Equipment Procedure Code Equipment Code [...] Evaluation note No assessment information availa ble [facility] Work Phone: Evaluation note Note Date & Type Note Facility Evaluation note Diagnosis Onset Date Sinusitis acute [facility] Work Phone: Reason for referral (narrative) Note Date & Type Note Facility Reason for referral (narrative) No reason for referral information available [facility] Work Phone: Chief Complaint and Reason [...] May 16, 2 021 11:17am 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 [facility] provides no warranty or guarantee of the accuracy or completeness of information in this document.
[2025-05-01 10:42] LABS: Hematocrit 41.1 % (37-47); Hemoglobin 13.7 g/dL (12.0-15.0); Immature Granulocytes Count 0.030 X10^3/uL (0.0-0.0); Mean Corp Hgb Conc 33.3 g/dL (32-36); Mean Corpuscular Volume 99.5 fL (81-99); Mean Platelet Vol. 9.8 fl (6.2-12.0); NRBC Flagged by Analyzer 0 % (0-5); Platelet Count 248 K/mm3 (150-450); RBC Distribution Width CV 13.9 % (11.6-14.6); RBC Distribution Width SD 49.7 fl (35.1-43.9); Red Blood Count 4.13 M/mm3 (4.2-5.4); White Blood Count 5.9 K/mm3 (4.4-11.0)
[2025-05-01 11:44] LABS: AST(SGOT) 25 U/L (<=31); Alanine Aminotransfer ALT/SGPT 27 U/L (<=34); Albumin, Serum 4.3 g/dL (3.4-4.8); Alkaline Phosphatase 76 U/L (35-104); Anion Gap 11 (5-15); BUN 12 mg/dL (4-19); BUN/Creat Ratio 14.9 RATIO (10-20); Calcium,Total 9.5 mg/dL (7.6-11.0); Carbon Dioxide 23.2 mmol/L (21.0-32.0); Chloride 106 mmol/L (98-108); Cholesterol 249 mg/dL (<=200); Free T3 2.8 pg/mL (2.18-3.98); Globulin 2.4 g/dL (2.2-4.2); Glucose 108 mg/dL (70-99); Low Density Lipoprotein Calc. 173 mg/dL; Potassium 4.1 mmol/L (3.3-5.1); Triglycerides 160 mg/dL; Very Low Density Lipoprotein 32 mg/dL (5-40); Vitamin B12 951 pg/mL (180-914); Vitamin D,25 Hydroxy 34.2 ng/mL (30-100); cholesterol:hdl ratio screen 5.30
[2025-05-01 12:07] LABS: CRP 3.52 mg/L (0.0-3.0)
[2025-05-03 14:08] LABS: ANTINUCLEAR ANTIBODIES DIRECT Negative (Negative)
== END | disposition home or self-care (01) ==
LOC: LAB 10:17
PROVIDERS: PCP Family Medicine; Referring Provider Family Medicine; Visit Provider Family Medicine
DX: E03.9 Hypothyroidism, unspecified (principal); I10 Essential (primary) hypertension; E78.5 Hyperlipidemia, unspecified; M25.50 Pain in unspecified joint; E53.8 Deficiency of other specified B group vitamins; E55.9 Vitamin D deficiency, unspecified
CPT/HCPCS: 36415; 80053; 80061; 82306; 82607; 84439; 84443; 84481; 85025; 85652; 86038; 86140; 86200; 86225; 86235; 86376; 86431; 86800